=== PATIENT | male | born 1945 | race Caucasian/White ===

== ENCOUNTER → 2018-11-07 | Outpatient (CLI) | payer MEDICARE, OTHER ==
[~2018-11-07] MED LIST: ALPR1T PO; AMIT100T2 PO; ATEN25TA PO; BSP5T PO; CYCL10TA9 PO; FLT11013 IH; HYDR1TAB71 PO; HYOS0.1217 PO; MULT1CAP27 PO; NITR0.4T12 SL; PEG250PW PO; PRAV40TA PO; RHINOCORT; RT-COMBINH IH; TRZ50T PO
--- NOTE | 2018-11-07 12:56 | Diagnostic Imaging Report ---
INDICATION: Screening for osteoporosis. COMPARISON: 10/26/2016 FINDINGS: AP Spine L1-L4: [BMD (g/cm2): 1.216] [T-Score: -0.2] [Z-Score: 0.9] [BMD Previous: 1.068] [BMD % Change: 13.9] LT Hip Neck: [BMD (g/cm2): 0.816] [T-Score: -2.0] [Z-Score: -0.3] LT Hip Total: [BMD (g/cm2):0.937] [T-Score:-1.1] [Z-Score: 0.0] [BMD Previous: 0.923] [BMD % Change: N/A] RT Hip Neck: [BMD (g/cm2):0.770] [T-Score:-2.3] [Z-Score:-0.6] RT Hip Total: [BMD (g/cm2):0.849] [T-score:-1.8] [Z-Score:-0.6] [BMD Previous:0.812] [BMD % Change:N/A] *Indicates significant change from prior examination based on 95% confidence level. World Health Organization criteria for BMD interpretation classify patients as Normal (T-score at or above -1.0), Osteopenic (T-score between -1.0 and -2.5) or Osteoporotic (T-score at or below -2.5). LIMITATIONS AND MODIFICATION: None. FRACTURE RISK (FRAX SCORE): The ten year probability of (%): Major Osteoporotic Fracture: [1.8] Hip Fracture: [0.0] IMPRESSION: 1. Osteopenia (Low bone mass). 2. No significant change in bone mineral density since prior examination. 3. See below National Osteoporosis Foundation guidelines on when to potentially initiate pharmacologic therapy. Based on the National Osteoporosis Foundation Guidelines, pharmacologic treatment should be initiated in any of the following, unless clinical conditions suggest otherwise: * Any patient with prior fragility fracture of the hip or vertebrae. A spine fracture indicates 5X risk for subsequent spine fracture and 2X risk for subsequent hip fracture. * Osteoporosis (T-score <-2.5). * Postmenopausal women and men age 50 and older with low bone mass/osteopenia (T-score between -1.0 and -2.5) by DXA and 10-year major osteoporotic fracture greater than 20% or a 10-year probability of hip fracture greater than 3%. These fracture risks are supplied above in the FRAX score, if applicable. * Clinician judgement and/or patient preferences may indicate treatment for people with 10-year fracture probabilities above or below these levels. Dictated by: Dictated on workstation # [id number]
== END ==
LOC: RAD 11:18
DX: Z13.820 Encounter for screening for osteoporosis (principal); M85.89 Other specified disorders of bone density and structure, multiple sites; M81.0 Age-related osteoporosis without current pathological fracture
CPT/HCPCS: 77080

== ENCOUNTER → 2020-02-18 | Outpatient (CLI) | payer MEDICARE, OTHER ==
--- NOTE | 2020-02-18 14:25 | Diagnostic Imaging Report ---
INDICATION: Cough x 3 weeks. TECHNIQUE/COMPARISON: PA and lateral films of the chest were obtained at 2:25 PM. There is no prior study for comparison. FINDINGS: The heart and mediastinal silhouette are normal in appearance. The lungs appear clear except for a calcified granuloma in the left midlung. There is no pneumothorax or pleural fluid. There is a compression fracture of T12 which is unchanged compared to the previous lumbar spine series of 10/03/2016. IMPRESSION: No acute process in the chest. Dictated by: Dictated on workstation # [id number]
== END ==
LOC: RAD 14:09
DX: R05 Cough (principal)
CPT/HCPCS: 71046

== ENCOUNTER → 2020-02-23 | Outpatient (CLI) | payer MEDICARE, OTHER ==
[~2020-02-23] MED LIST changes: +GADOBUTROL 10 MMOL/10 ML (GADAVIST) VIAL IV ONE
--- NOTE | 2020-02-23 15:33 | Diagnostic Imaging Report ---
PROCEDURE: MR imaging of the brain with and without contrast. TECHNIQUE: Multiplanar, multisequence MR imaging of the brain was performed with and without contrast. INDICATION: Memory loss and amnesia. COMPARISON is made to a previous study from September 28, 2014. FINDINGS: The diffusion series demonstrates no restriction. There are no findings of acute or subacute ischemia There is age-appropriate global volume loss. There are background chronic microvascular changes present within the white matter which demonstrates mild progression compared to the previous exam. There is no evidence of intracranial mass effect or shift. There is no hydrocephalus. There is no abnormal extra-axial fluid collection. The basilar cisterns appear patent. The posterior fossa demonstrates no acute process. Postcontrast imaging demonstrates no MR evidence of pathologic intracranial enhancement. Pituitary gland and pineal region are unremarkable. The mastoid air cells are clear. There is minimal mucosal thickening in the paranasal sinuses without air-fluid level. Orbital contents unremarkable. The major expected vascular flow voids appear maintained. IMPRESSION: 1. No MR evidence of an acute intracranial abnormality. There are no findings of acute ischemia, hemorrhage, mass effect or hydrocephalus. 2. Age-appropriate global volume loss with background microvascular changes. These have mildly progressed compared to the previous exam. 3. No findings of pathologic intracranial enhancement. Dictated by: Dictated on workstation # [id number]
== END ==
LOC: RAD 13:10
DX: R41.3 Other amnesia (principal)
CPT/HCPCS: 70553

== ENCOUNTER → 2020-04-09 | Outpatient (CLI) | payer MEDICARE, OTHER ==
[~2020-04-09] MED LIST changes: -GADOBUTROL 10 MMOL/10 ML (GADAVIST) VIAL IV ONE
--- NOTE | 2020-04-09 15:59 | Diagnostic Imaging Report ---
INDICATION: Pleurodynia. COMPARISON: Chest radiograph from same day. FINDINGS: Three views of the right ribs were obtained. There is no fracture, dislocation, or other acute bony abnormality identified. Visualized portions of the right lung are clear. The surrounding soft tissues appear unremarkable. No radiopaque foreign bodies are seen. IMPRESSION: No healing or displaced right rib fractures. Dictated by: Dictated on workstation # [id number]
--- NOTE | 2020-04-09 16:48 | Diagnostic Imaging Report ---
INDICATION: PLEURODYNIA. RT SIDED RIB PAIN. CHEST PAIN COMPARISON: 02/18/2020. FINDINGS: Frontal and lateral views of the chest demonstrate normal heart size and pulmonary vascularity. The lungs are clear. There are no signs of infiltrate, pleural effusions or pneumothoraces. The visualized osseous structures show no acute abnormalities. IMPRESSION: 1. No acute process. No signs of infiltrates, effusions or pneumothoraces. Dictated by: Dictated on workstation # [id number]
== END ==
LOC: RAD 14:36
DX: R07.81 Pleurodynia (principal)
CPT/HCPCS: 71046; 71100

== ENCOUNTER → 2022-03-09 | Outpatient (CLI) | payer MEDICARE, OTHER ==
--- NOTE | 2022-03-09 16:26 | Diagnostic Imaging Report ---
INDICATION: Back pain. COMPARISON: 10/03/2016 FINDINGS: Frontal and lateral radiographic views of the lumbar spine were obtained. There is chronic wedge-shaped compression deformity of the T12 vertebral body. Lumbar vertebral body heights are maintained. There is no convincing evidence of new acute fracture. Static alignment is preserved. There is no significant anteroretrolisthesis. There is no evidence of jumped facets. Multilevel degenerative changes are noted consistent with intervertebral disc height loss with endplate sclerosis and osteophyte formations. There is also multilevel facet arthropathy. Note is made of calcified aortic atherosclerosis. IMPRESSION: 1. No new acute fracture or dislocation of the lumbar spine. 2. Chronic wedge-shaped deformity of T12. 3. Moderate multilevel degenerative changes. Dictated by: Dictated on workstation # [id number]
--- NOTE | 2022-03-09 16:27 | Diagnostic Imaging Report ---
INDICATION: Back pain. COMPARISON: None FINDINGS: Frontal, lateral, and open-mouth radiographic views of the cervical spine were obtained. Cervical spine is seen down to the inferior endplate of C6 on the lateral view. Visualization below this is degraded due to overlying soft tissue structures. The visualized portions of cervical spine show preservation of normal static alignment. There is no significant anteroretrolisthesis. There is no evidence of jumped facets. Open-mouth view shows normal C1-C2 relationship. Visualized vertebral body heights are maintained. There is no acute fracture. Degenerative changes are noted, greatest at C5-C6 where there is intervertebral disc height loss with anterior and posterior endplate osteophyte formation. Included portions of the lung apices are clear. Note is also made of calcified carotid atherosclerosis. IMPRESSION: 1. No acute fracture or dislocation of the cervical spine with limitations as above. 2. Degenerative changes, greatest at C5-C6. Dictated by: Dictated on workstation # [id number]
--- NOTE | 2022-03-09 17:43 | Diagnostic Imaging Report ---
INDICATION: Back pain. TIME OF EXAM: 3:43 PM. EXAMINATION: Frontal and lateral views of the thoracic spine were obtained. FINDINGS: Curvature and alignment is normal. There is a compression fracture deformity of approximately T12. This was present on prior chest x-ray from 04/09/2020. Remaining thoracic vertebrae show normal height. There is generalized spondylosis. There is variable disc space narrowing and marginal spurring. The pedicles and paraspinous line are intact. IMPRESSION: Thoracic spondylosis as well as chronic lower thoracic compression fracture. No acute bony abnormality is detected. Dictated by: Dictated on workstation # [id number]
== END ==
LOC: RAD 15:17
PROVIDERS: ATTEND Internal Medicine
DX: M47.812 Spondylosis without myelopathy or radiculopathy, cervical region (principal); M47.814 Spondylosis without myelopathy or radiculopathy, thoracic region; M47.816 Spondylosis without myelopathy or radiculopathy, lumbar region; M48.54XA Collapsed vertebra, not elsewhere classified, thoracic region, initial encounter for fracture; M43.8X4 Other specified deforming dorsopathies, thoracic region
CPT/HCPCS: 72040; 72072; 72100

== ENCOUNTER → 2022-03-27 | Outpatient (CLI) | payer MEDICARE, OTHER ==
--- NOTE | 2022-03-27 15:21 | Diagnostic Imaging Report ---
PROCEDURE: MR imaging of the brain without contrast. TECHNIQUE: Multiplanar, multisequence MR imaging of the brain was performed without contrast. INDICATION: Gait instability. Ataxia. COMPARISON: 02/23/2020 FINDINGS: The ventricles and cortical sulci are slightly prominent, compatible with age related volume loss. There are focal and confluent areas of abnormal T2 bright signal in the periventricular and subcortical white matter, compatible with small vessel ischemic change. There is no acute infarction. There is no midline shift or mass effect identified. No intraparenchymal or extraaxial hemorrhage or fluid collection is identified. There is no other focal parenchymal abnormality seen. The midline craniocervical anatomy is unremarkable. The major expected intracranial flow voids are seen. There are no focal calvarial lesions. The visualized paranasal sinuses are unremarkable. The mastoid air cells are clear. IMPRESSION: 1. No acute intracranial abnormalities. No acute infarction, acute intra-axial hemorrhage, or focal intra-axial mass. 2. Chronic small vessel ischemic changes in the periventricular and subcortical white matter. Dictated by: Dictated on workstation # [id number]
--- NOTE | 2022-03-27 16:54 | Diagnostic Imaging Report ---
PROCEDURE: MR imaging cervical spine without contrast. TECHNIQUE: Multiplanar, multisequence MR imaging of the cervical spine was performed without contrast. INDICATION: Ataxia. COMPARISON: Cervical spine radiographs of 03/09/2022. FINDINGS: The cervical spine is normal in alignment. No fracture or concerning marrow replacing process. Cervical cord is normal in size and signal. There are no T2 hyperintense intramedullary lesions that would suggest demyelinating disease. No cervical lymphadenopathy. Visualized portions of the brachial plexus are normal. C2-C3: No spinal canal or neural foraminal stenosis. C3-C4: Small central disc protrusion does not result in spinal canal stenosis. No neural foraminal stenosis. C4-C5: Minimal central disc protrusion does not result in spinal canal stenosis. Uncovertebral joint hypertrophy results in [id number]-tm-[id number] left neural foraminal stenosis. C5-C6: Disc bulge, uncovertebral joint hypertrophy, and ligamentum flavum thickening result in mild spinal canal stenosis. Ijzllwvw-xz-zmhlvs bilateral neural foraminal narrowing is present. C6-C7: Small central disc protrusion, ligamentum flavum hypertrophy, and uncovertebral joint hypertrophy. There is mild spinal canal stenosis. Severe bilateral neural foraminal stenosis. C7-T1: No spinal canal or neural foraminal stenosis. IMPRESSION: 1. Alignment of the cervical spine is normal, and there is no osseous abnormality. 2. Normal cervical cord. 3. Multilevel degenerative changes cause a few sites of mild spinal canal stenosis, and iwyjessk-ho-qjzfae foraminal stenosis. Dictated by: Dictated on workstation # [id number]
== END ==
LOC: RAD 13:47
PROVIDERS: ATTEND Internal Medicine
DX: M47.812 Spondylosis without myelopathy or radiculopathy, cervical region (principal); M48.02 Spinal stenosis, cervical region; I67.82 Cerebral ischemia; R90.82 White matter disease, unspecified
CPT/HCPCS: 70551; 72141

== ENCOUNTER → 2022-07-18 | Outpatient (CLI) | payer MEDICARE, OTHER ==
--- NOTE | 2022-07-18 18:00 | Diagnostic Imaging Report ---
EXAMINATION: Chest 2 view HISTORY: COUGH COMPARISON: 04/09/2020 FINDINGS: The lungs are clear without edema or pneumonia. No pleural effusion or pneumothorax. Heart size is normal. There is lower thoracic impression fracture, likely unchanged from prior exam. IMPRESSION: 1. Clear lungs. Dictated by: Dictated on workstation # [id number]
== END ==
LOC: RAD 16:07
PROVIDERS: ATTEND Internal Medicine
DX: R05.9 Cough, unspecified (principal)
CPT/HCPCS: 71046

== ENCOUNTER 2022-11-11 18:12 | Emergency (ER) | payer MEDICARE, OTHER ==
[~2022-11-11] VITALS: Ht 167.7 cm; Wt 61.2 kg
--- NOTE | 2022-11-11 18:31 | ED Cough/URI ---
General Chief Complaint: Respiratory Problems Stated Complaint: GENERAL SICKNESS Nursing Triage Note: ARRIVED VIA EMS TO ROOM 9 WITH A C/O SOB WITH EXERTION BODY ACHES AND PAIN. SICK FOR 3 DAYS, HAS COVID Source: patient Exam Limitations: no limitations (REBECA GONZALEZ) History of Present Illness Date Seen by Provider: Nov 11, 2022 Time Seen by Provider: 18:30 Initial Comments 76 M present to ED with a 4 day hx of generalized bady aches fatigue SOB and cough. Pt claims non-productive cough has been going on for a month but has worsened over the past 4 days. tested positive for COVID today. Pt reports some associated nausea w/o emesis, diarrhea, and dark urine. claims he has not ate anything in the past 2 days and minimal fluid intake. Has been taking tylenol and ibuprofen with no relief of symptoms. Pt has a pmh of anxiety for which he takes xanax and admits to one beer a night. Timing/Duration: other (4 days ) Severity/Quality: mild, dry cough Prior Episodes/Possible Cause: no prior episodes Modifying Factors: Improves With Activity (worsens fatigue ) Associated Symptoms: cough, muscle aches, shortness of breath (REBECA GONZALEZ) Allergies and Home Medications Allergies Coded Allergies: No Known Drug Allergies (Unverified , 06/14/10) Patient Home Medication List Home Medication List Reviewed: Yes (REBECA GONZALEZ) Alprazolam (Xanax) 1 Mg Tablet, 1 TAB PO 5X/DAY, (Reported) Entered as Reported by: ZONIA DRAKE on 06/14/10 1042 Hydrocodone Bit/Acetaminophen (Hydrocodone-Apap 7.5-500 Mg Tb) 1 Each Tablet, 1 EACH PO 5X/DAY PRN, (Reported) Entered as Reported by: ZONIA DRAKE on 06/14/10 1029 Review of Systems Review of Systems Constitutional: No chills, No diaphoresis, No fever; malaise, weakness EENTM: No blurred vision, No nose congestion, No throat pain Respiratory: cough, dyspnea on exertion, short of breath Cardiovascular: No chest pain, No edema, No palpitations Gastrointestinal: No abdominal pain; diarrhea, loss of appetite, nausea; No vomiting Genitourinary: decreased output, other (dark urine) Musculoskeletal: back pain, joint swelling, muscle pain Skin: No change in color, No change in hair/nails; dryness, other Psychiatric/Neurological: Anxiety Hematologic/Lymphatic: No Symptoms Reported Immunological/Allergic: no symptoms reported (SAUCE,REBECA) Past Tezsatx-Ntjauo-Bazien Hx Patient Social History Tobacco Use?: No Use of E-Cig and/or Vaping dev: No Substance use?: No Alcohol Use?: Yes Alcohol type: Beer Alcohol Frequency: Daily (SAUCE,REBECA) Immunizations Up To Date Influenza Vaccine Up-to-Date: Yes; Up-to-Date COVID19 Vaccine Fiction Writer: VERBALIZES CURRENT VACC (SAUCE,REBECA) Past Medical History Reproductive Disorders: Yes (SAUCE,REBECA) Physical Exam Vital Signs - First Documented 11/11/22 18:18 Temp 37.3 Pulse 83 Resp 20 B/P (MAP) 98/85 (89) Pulse Ox 100 O2 Delivery Room Air (AIXA SHELDON MD) Capillary Refill : (SAUCE,REBECA) Height: 5'5.00" Weight: 130lbs. oz. 58.012228fm; 21.00 BMI Method:Stated General Appearance: WD/WN, no apparent distress Eyes: Bilateral Eye Normal Inspection, Bilateral Eye PERRL, Bilateral Eye EOMI HEENT: PERRL/EOMI, pharynx normal Neck: non-tender, supple, normal inspection Respiratory: chest non-tender, lungs clear, normal breath sounds, no respiratory distress, no accessory muscle use Cardiovascular: regular rate, rhythm, no edema, no gallop, no murmur Gastrointestinal: normal bowel sounds, non tender, soft, no organomegaly, no pulsatile mass Extremities: normal inspection, no pedal edema, normal capillary refill, calf tenderness; No pedal edema Neurologic/Psychiatric: alert, oriented x 3, other (anxious (chronic)) Skin: normal color, warm/dry Lymphatic: no adenopathy (SAUCE,REBECA) Progress/Results/Core Measures Suspected Sepsis SIRS Temperature: Pulse: 83 Respiratory Rate: 20 Blood Pressure 98 /85 Mean: 89 Laboratory Tests 11/11/22 18:24: (SAUCE,REBECA) Results/Orders Lab Results Laboratory Tests Test 11/11/22 18:19 11/11/22 18:24 Range/Units Influenza Type A (RT-PCR) Not Detected Not Detecte Influenza Type B (RT-PCR) Not Detected Not Detecte SARS-CoV-2 RNA (RT-PCR) Detected H Not Detecte Sodium Level 138 135-145 MMOL/L Potassium Level 4.0 3.6-5.0 MMOL/L Chloride Level 101 98-107 MMOL/L Carbon Dioxide Level 21 21-32 MMOL/L Anion Gap 16 H 5-14 MMOL/L Blood Urea Nitrogen 12 7-18 MG/DL Creatinine 0.89 0.60-1.30 MG/DL Estimat Glomerular Filtration Rate 89 BUN/Creatinine Ratio 13 Glucose Level 148 H 70-105 MG/DL Calcium Level 9.6 8.5-10.1 MG/DL (AIXA SHELDON MD) My Orders Orders - AIXA SHELDON MD Covid 19 Inhouse Test (11/11/22 18:37) Influenza A And B By Pcr (11/11/22 18:37) Isolation Central Supply Req (11/11/22 18:37) Ed Iv/Invasive Line Start (11/11/22 18:38) Basic Metabolic Panel (11/11/22 18:38) Ns Iv 1000 Ml (Sodium Chloride 0.9%) (11/11/22 18:38) Ed Iv/Invasive Line Start (11/11/22 18:43) Ondansetron Injection (Zofran Injectio (11/11/22 19:00) (AIXA SHELDON MD) Medications Given in ED Current Medications Medications Dose Ordered Sig/Glen Route Start Time Stop Time Status Last Admin Dose Admin Ondansetron HCl 4 mg ONCE ONCE IVP 11/11/22 19:00 11/11/22 19:01 DC 11/11/22 18:55 4 MG (AIXA SHELDON MD) Vital Signs/I&O 11/11/22 18:18 Temp 37.3 Pulse 83 Resp 20 B/P (MAP) 98/85 (89) Pulse Ox 100 O2 Delivery Room Air (AIXA SHELDON MD) Vital Signs/I&O Capillary Refill : (SASIMINREBECA) Blood Pressure Mean: 89 Progress Note : Time: 19:36 Progress Note Patient seen and evaluated by me. I have reviewed and agree with the medical students documentation. 76yo male with a history of anxiety to ER with n/v today. He states also body aches and "bone pain". Hes had a cough for 1 month (non productive) and in the last 4 days worsening symptoms, decreased appetite and feels SOB. Former smoker. Taking ibuprofen and tylenol at home. COuldnt initially remember the time of his last dose - but states he thinks tylenol at 10:30 am. He states his tested herself and him for covid today with an at home test - she was positive and he was negative. decreaed appetite in the last 2 days. states urine is "dark" but no dysuria, urgency frequency. PE: gen: alert and oriented. NAD. VSS room air sats 100% Chest : Clear Bilat with no increased work of breathing CV: RR, distal pulses 2+ Abd: soft, benign Skin: no rashes Assessment: Patient is covid positive. Stable VS. basic metabolic panel normal. good renal function. Treated with 1 liter of NS, and zofran 4mg; also toradol 15mg. feels better. No clinical or objective findings for sepsis, pneumonia. Plan: discharge to home, supportive care. No indication for paxlovid/antiviral therapy as symptoms ongoing 4 days. Return precautions discussed. All questions are sought and answered. Home with zofran for nausea. (AIXA SHELDON MD) Departure Impression Primary Impression: COVID-19 Disposition: 01 HOME, SELF-CARE Condition: Improved Departure-Patient Inst. Decision time for Depature: 19:42 (AIXA SHELDON MD) Referrals: MAIDA FRANCO,LOCAL PHYSICIAN (PCP) Primary Care Physician Patient Instructions: COVID-19 ED Add. Discharge Instructions: Push fluids at home so you stay well hydrated. Your appetite will come back as the virus clears. I have written you a prescription for ondansetron (Zofran), this is a nausea medication you can take every 8 hours. Alternate 2 extra strength tylenol every 3 hours with 3 ibuprofen (advil or motrin) which is 600mg - always take ibuprofen with food/a snack. Take this for body aches, fever over 100.4. If you have any worsening symptoms of high fever, productive cough with worsening shortness of breath or any other emergent, concerning symptoms - please come back to the Emergency Department for re-evaluation. Please call your primary care doctor on Sunday for a follow up appointment in 1 week. Scripts Ondansetron (Ondansetron Odt) 4 Mg Tab.rapdis 4 MG SL Q8H PRN for NAUSEA/VOMITING, #10 TAB Prov: AIXA SHELDON MD 11/11/22 Verification and Attestation of Medical Student E/M Service A medical student performed and documented this service in my presence. I reviewed and verified all information documented by the medical student and made modifications to such information, when appropriate. I personally performed the physical exam and medical decision making. Aixa Sheldon, Nov 11, 2022,19:42 (AIXA SHELDON MD) REBECA GONZALEZ Nov 11, 2022 18:31 AIXA SHELDON MD Nov 11, 2022 19:42
[2022-11-11] MEDS ORDERED: NS IV 1000 ML 1,000 ML IV STA (18:38)
[2022-11-11 18:50] LABS: CALCIUM 9.6 MG/DL (8.5-10.1)
[2022-11-11 18:54] LABS: CREATININE SERUM 0.89 MG/DL (0.60-1.30)
[2022-11-11] MEDS ORDERED: ONDANSETRON 4 MG/2 ML (SDV) Z0FRAN IVP ONE (19:00)
[2022-11-11] MEDS ORDERED: RX-ONDANSETRON 4 MG ODT (ZOFRAN) PPK #4 PO STA (19:46)
[2022-11-11] MEDS ORDERED: ONDA4TAB11 SL (19:46)
[2022-11-11] MEDS ORDERED: KETOROLAC 30 MG/ML VIAL IVP ONE (20:00)
[2022-11-11 20:30] VITALS: BP 134/79
== END 2022-11-11 20:30 | disposition home or self-care (01) ==
LOC: EDUNIT# 18:12 → ER 18:13
DX: U07.1 COVID-19 (principal); R06.02 Shortness of breath; R05.9 Cough, unspecified; M79.10 Myalgia, unspecified site; M25.50 Pain in unspecified joint; R63.0 Anorexia; Z87.891 Personal history of nicotine dependence
CPT/HCPCS: 36415; 80048; 87636

== ENCOUNTER 2023-07-04 09:55 | Inpatient (IN) | payer MEDICARE, OTHER ==
[~2023-07-04] VITALS: Ht 165.1 cm; Wt 55.9 kg
--- NOTE | 2023-07-04 09:51 | PM&R Post Admission Assessment ---
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 He has had multiple falls recently and his wants to continue to care for him at home and wants to avoid NH as long as possible. He has chronic pain and is maintained on Lortab scheduled along with Xanax due to severe discomfort from previous back injury and multiple falls and nerve condition. He has diarrhea and Questran has really helped him to avoid fecal incontinence. CC: cerebellar ataxia HPI: 77 y/o male has been having progressively worsening balance issues and is unable to be cared for by his . Patient has had progressive weakness in his LE for the past few months. He recently fell in his bathroom and was transferred to [facility] from [facility]. He is only able to use the shower on his own but unable to do any chores, cooking, or cleaning around the house. His reported 3 falls in the past month or so and patient is unable to stand by himself. Patient does not report any falls this past week other than the bathroom and there is no pain in his LE extremities. He states he is a bit weaker on the right. He uses a wheelchair and walker at home, and is unable to ambulate more than a few steps without needing to sit down. 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 FH: no family History of ataxia ROS: No SOB, No fever, no headache, no chest pain Exam: Neuro- A&Ox3, muscle strength 5/5 on left LE, 4/5 on right LE. Pupillary reflexes intact CN II-XII intact. Sensation intact. LE DTR's +2 b/l. Inability to properly perform finger-nose cerebellar testing. unable to ambulate- gait not assessed Cardio: Regular rate and rythym, No murmurs or gallops, no JVD, no edema Lung: CTAB, no wheezing no ronchi Abdominal: No masses, soft, no organomegaly, no tenderness on palpation on all 4 quadrants Imaging: MRI of brain on 03/27/22 - chronic small vessel ichemic changes in periventricular and subcortical white matter, no acute infarction. MRI of neck showed no significant findings Assessment: progressive Spinal cerebellar ataxia insomnia chronic pain chronic diarrhea BPH erectile dysfunction Plan: ARU - continue PT OT restart home meds Past Kjzqwyb-Bvnkkk-Ozrtbl Hx Past Med/Social Hx: Reviewed Nursing Past Med/Soc Hx, Reviewed and Corrections made Patient Social History Marrital Status: Employed/Student: retired Alcohol Use: Occasionally Uses Smoking Status: Never a Smoker Immunizations Up To Date Date of Pneumonia Vaccine: Aug 27, 2014 Date of Influenza Vaccine: Aug 27, 2014 Past Medical History cerebellar ataxia Reproductive: Yes Genitourinary: Benign Prostatic Hyperpl Musculoskeletal: Chronic Back Pain Psychosocial: Sleep Difficulties, Anxiety, Depression PM&R Allergy/Meds/Data Review Allergies Coded Allergies: No Known Drug Allergies (Unverified , 06/14/10) Home Medications Scheduled Alprazolam (Alprazolam), 1 MG PO QID, (Reported) Cyanocobalamin (Vitamin B-12) (Vitamin B-12), 1,000 MCG PO DAILY, (Reported) Folic Acid (Folic Acid), 1 MG PO DAILY, (Reported) Hydrocodone/Acetaminophen (Hydrocodone-Acetamin 10-325 mg), 1 EA PO TID, (Reported) Trazodone HCl (Trazodone HCl), 150 MG PO HS, (Reported) Scheduled PRN Cholestyramine (with Sugar) (Cholestyramine Powder), 4 GM PO TID PRN for LOOSE STOOLS, (Reported) Discontinued Medications Alprazolam (Xanax), 1 TAB PO 5X/DAY, (Reported) Discontinued Reason: No Longer Taking Hydrocodone Bit/Acetaminophen (Hydrocodone-Apap 7.5-500 Mg Tb), 1 EACH PO 5X/DAY PRN, (Reported) Discontinued Reason: No Longer Taking Ondansetron (Ondansetron Odt), 4 MG SL Q8H PRN for NAUSEA/VOMITING Discontinued Reason: No Longer Taking Current Medications Current Medications Reviewed Review of Systems Constitutional: see HPI, dizziness, malaise, weakness EENTM: no symptoms reported Respiratory: no symptoms reported Cardiovascular: no symptoms reported Gastrointestinal: diarrhea Genitourinary: decreased output Musculoskeletal: back pain, joint pain, muscle pain, muscle stiffness, muscle cramps, muscle twitching, muscle weakness Skin: no symptoms reported Psychiatric/Neurological: Anxiety, Depressed, Numbness, Weakness All Other Systems Reviewed Negative Unless Noted: Yes Physical Exam Physical Exam Vital Signs Capillary Refill : Height, Weight, BMI Height: 5'5.00" Weight: 130lbs. oz. [id number]; 21.00 BMI Method:Stated General Appearance: No Apparent Distress, WD/WN, Anxious, Chronically ill, Thin, Other (debilitated) Eyes: Bilateral Eye Normal Inspection, Bilateral Eye PERRL HEENT: PERRL/EOMI, Normal ENT Inspection, Pharynx Normal Neck: Full Range of Motion, Normal Inspection, Non Tender, Supple, Carotid Bruit Respiratory: Chest Non Tender, Lungs Clear, Normal Breath Sounds, No Accessory Muscle Use, No Respiratory Distress Cardiovascular: Regular Rate, Rhythm, No Edema, No Gallop, No JVD, No Murmur, Normal Peripheral Pulses Gastrointestinal: Normal Bowel Sounds, No Organomegaly, No Pulsatile Mass, Non Tender, Soft Back: Normal Inspection, No CVA Tenderness, No Vertebral Tenderness Extremity: Normal Capillary Refill, Normal Inspection, Normal Range of Motion, Non Tender, No Calf Tenderness, No Pedal Edema Neurologic/Psychiatric: Alert, Oriented x3, metallurgical technician II-XII Norm as Tested, Abnormal Gait, Depressed Affect, Motor Weakness (generalized) Skin: Normal Color, Warm/Dry Lymphatic: No Adenopathy PM&R Medical Assessment & Plan REHAB/MEDICAL ASSESSMENT AND PLAN: REHAB IMPAIRMENT GROUP: Neuro condition ETIOLOGIC DIAGNOSIS: Neurogenerative cerebellar ataxia The comorbidities that impact the patients function and/or functional outcome by: vitamin deficiencies of B12 and folate, multiple falls, severe weakness, chronic diarrhea REHAB PLAN: The patient is being admitted to our comprehensive inpatient rehabilitation facility and can tolerate the intensity of service consisting of at least: 180 minutes of therapy a day, 5 out of 7 days a week Rehab treatment will consist of: PT OT will focus on regaining function with use of AD to help regain strength and independence in ADL's to decrease burden for insurance processing clerk The patient/family has a good understanding of our discharge process and will benefit from an interdisciplinary inpatient rehabilitation program. The patient has potential to make improvement and is in need of at least two of the following multidisciplinary therapies including but not limited to physical, occupational, speech, and prosthetics and orthotics. Additionally the patient will need services from respiratory, nutritional services, wound care, psychology, etc. (Customize this to each patient). Given the patients complex condition and risk of further medical complications, rehabilitation services cannot be safely or effectively provided at a lower level of care such as a nursing home facility. BARRIERS TO DISCHARGE: Severe neurodegenerative process with increased fall risk ESTIMATED LOS: 14 days DISPOSITION: Home RELEVANT CHANGES SINCE PREADMISSION SCREENING: I have compared the patients medical and functional status at the time of the preadmission screening and there are: no changes PROGNOSIS: Fair REHABILITATION GOALS: 1. PT OT will focus on regaining function with use of AD to help regain strength and independence in ADL's to decrease burden for insurance processing clerk All the above goals were reviewed with the patient and he/she is in agreement. By signing this document, I acknowledge that I have personally performed a full physical examination on this patient within 24 hours of admission to this inpatient rehabilitation facility and have determined the patient to be able to tolerate the above course of treatment at an intensive level for a reasonable period of time. I will be completing a detailed individualized Plan of Care for this patient by day #4 of the patients stay based upon the Preadmission Screen, the Post-Admission Evaluation, and the therapy evaluations. 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
[~2023-07-04 09:55] MED LIST changes: +ONDA4TAB11 SL
[2023-07-04] MEDS ORDERED: diphenhydrAMINE 25 MG TABLET PO PRN (10:00)
[2023-07-04] MEDS ORDERED: DOCUSATE SODIUM 100 MG CAPSULE PO PRN (10:00)
[2023-07-04] MEDS ORDERED: LOPERAMIDE 2 MG CAPSULE PO PRN (10:00)
[2023-07-04] MEDS ORDERED: guaiFENesin/CODEINE 10ML UDC PO PRN (10:00)
[2023-07-04] MEDS ORDERED: ONDANSETRON 4 MG ORAL DISSOLVE TABLET PO PRN (10:00)
[2023-07-04] MEDS ORDERED: ALPRAZolam 0.25 MG TABLET PO PRN (10:00)
[2023-07-04] MEDS ORDERED: Sodium Phosphate/Sodium Biphosphate ADULT enema PR PRN (10:00)
[2023-07-04] MEDS ORDERED: BISACODYL 10 MG SUPPOSITORY PR PRN (10:00)
[2023-07-04] MEDS ORDERED: LACTULOSE SYRUP 10GM/15ML 30ML UDC PO PRN (10:00)
[2023-07-04] MEDS ORDERED: MELATONIN 3 MG TABLET PO PRN (10:00)
[2023-07-04] MEDS ORDERED: CALCIUM CARBONATE 500 MG CHEW TABLET PO PRN (10:00)
[2023-07-04 10:20] VITALS: BP 120/68
--- NOTE | 2023-07-04 12:22 | Physical Therapy Evaluation ---
PT Evaluation-General Medical Diagnosis Admission Date Jul 04, 2023 at 10:20 Medical Diagnosis: Neurodegenerative cerebellar dysfunction with ataxia. Onset Date: Aug 04, 2022 (progressive decline over the past year) Therapy Diagnosis Therapy Diagnosis: Falls at home, impaired mobilty/transfers, LE weakness, endurance deficits Height/Weight Height (Feet): 5 Height (Inches): 5.00 Weight (Pounds): 130 Precautions Precautions/Isolations: Fall Prevention, Standard Precautions Weight Bear Status Weight Bearing/Tolerated Weight Bearing/Tolerated Referral Physician: Sammie Reason for Referral: Evaluation/Treatment Referral Comments Admit from patient's home Medical History Additional Medical History B12 deficient. BPH, anxiety, chronic LBP, chronic diarrhea. Current History states progressive decline over the past year with having increased difficulty caring for patient. Social History Home: Single Level Current Living Status: Spouse Entry Into Home: Stairs Without Railing PT Steps Into Home: 2 Prior Prior Level of Function SCALE: Activities may be completed with or without assistive devices. 7-Sfscjmaocf-blueshn completes the activity by him/herself with no assistance from a helper. 5-Set-up or Clean-up Assistance-helper sets up or cleans up; patient completes activity. Lueders assists only prior to or following the activity. 4-Supervision or Touching Assistance-helper provides verbal cues and/or touching/steadying and/or contact guard assistance as patient completes activity. Assistance may be provided throughout the activity or intermittently. 3-Partial/Moderate Assistance-helper does LESS THAN HALF the effort. Lueders lifts, holds or supports trunk or limbs, but provides less than half the effort. 2-Substantial/Maximal Assistance-helper does MORE THAN HALF the effort. Lueders lifts or holds trunk or limbs and provides more than half the effort. 2-Zpgkyonwz-hlzekl does ALL the effort. Patient does none of the effort to complete the activity. Or, the assistance of 2 or more helpers is required for the patient to complete the activity. If activity was not attempted, code reason: 7-Patient Refused. 9-Not Applicable-not attempted and the patient did not perform the activity before the current illness, exacerbation or injury. 10-Not Attempted due to Environmental Limitations-(lack of equipment, weather restraints, etc.). 88-Not Attempted due to Medical Conditions or Safety Concerns. Bed Mobility: 6 ((I) with bed rail) Transfers (B,C,W/C): 3 (usually min (A) of , but they recently acquired a mechanical lift for floor transfers as patient is falling frequently.) Gait: 3 ( report min (A) /c 4WW for short household distances) Stairs: 3 Wheelchair Mobility: 6 Indoor Mobility (Ambulation): Needed Some Help Stairs: Needed Some Help Prior Devices Use: Manual wheelchair, Mechanical lift, Walker, Other-see list below (Shower chair that sits in tub/shower combo) Prior Device Use: 4WW (height too tall for patient to support self with UE's.) PT Evaluation-Current Subjective Patient states he is here because he has fallen 3 times in the past 2 weeks. states she cannot pick him up (however recently acquired mechanical lift for floor transfers). Pain Section J - Health Conditions 1. Rarely or not at all 2. Occasionally 3. Frequently 4. Almost constantly 8. Unable to answer Pain Effect on Sleep: 2 Pain Interference with Therapy: 3 Pain Interference w/Day-to-Day: 3 Pt/Family Goals Patient wishes to return home with . Objective States he has chronic low back pain. Rates as a constant 8/10. This is from an injury when he was in his 20's. ROM/Strength ROM Upper Extremities deferred to OT ROM Lower Extremities Mild knee flexion deficit of ~ 10 degrees in sitting - tight hamstrings. Strength Upper Extremities Deferred to OT Strength Lower Extremities 4+/5 (B) ankles, (R) knee extension 4/5, flexion 4-/5, (L) knee extension 4/5, flexion 4/5. Hip flexion 3+/5 (B). Hip abd/add 4+/5 (B) with MMT: However, displays low muscle endurance with functional tasks. Integumentary/Posture Posture Kyphotic posture, tends to forward flex at hips. Sensory Vision: Wears Glasses Hearing: Functional Sensation Right Lower Extremit: Intact Sensation Left Lower Extremity: Intact Transfers Roll Left & Right (QC): 6 (with bed rail) Sit to Lying (QC): 6 (using bed rail) Lying to Sitting/Side of Bed(Q: 6 (using bed rail) Sit to Stand (QC): 3 (min (A) with v/c for hand placement) Chair/Jgo-fc-Uznaz Xfer(QC): 3 (min (A) used 4WW) Toilet Transfer (QC): 3 (Min (A) with 4WW) Car Transfer (QC): 3 (Min (A) with 4WW) Gait Does the Patient Walk?: Yes Mode of Locomotion: Both Anticipated Mode of Locomotion: Both Walk 10 feet (QC): 3 (min (A) with 4WW) Walk 50 ft with 2 Turns(QC): 3 (min (A) with 4WW) Walk 150 ft (QC): 88 (unable to reach distance due to fatigue/leg weakness) Walking 10ft/uneven surface-QC: 3 (min (A) with 4WW) Distance: 50' Gait Assistive Device: Walker 4 Wheeled Comments/Gait Description Walker is too high to allow for leverage using UE's. Tends to understep walker - does not provide adequate support for safe ambulation. Wheelchair Training Does the Pt Use a Wheelchair?: Yes Distance: 150' Wheel 50 ft with 2 turns (QC): 5 (w/c legs applied for patient prior to propulsion) Wheel 150 ft (QC): 5 (w/c legs applied for patient prior to propulsion) Type of Wheelchair: Manual Patient has his personal w/c on ARU with a w/c cushion and swing away leg rests. Stairs #of Steps: 3 (mod (A) to steady patient and to help navigate 4WW up 2" curb.) 1 Step (curb) (QC): 3 (min (A) with (B) rails with cues for sequence.) 4 Steps (QC): 3 (mod (A) with (B) rails, fatigued, tremulous) 12 Steps (QC): 9 Walking Assistive Device: Walker Max # steps at home = 2. Does not navigate 12 steps - would use elevator or ramp in community. Balance Sitting Static: Good Sitting Dynamic: Fair Standing Static: Fair Standing Dynamic: Fair Picking up an Object (QC): 3 (Mod (A) ) Special Test Comments [facility] standing balance scale: 1+/5. [place] 15/56 Treatment Gait training with 4WW 50' with cues for walker placement and posture. Discussed using FWW at next session to improve gait stability. Assessment/Needs 77 year old male with upright mobility/balance/transfer deficits due to progressive worsening of symptoms over past year. Recommend FWW vs 4WW for more gait stability. Has endurance deficits and would benefit from strengthening/activity tolerance activities to improve functional independence. Rehab Potential: Fair Post Rehab Potential-Barriers: Degenerative nature of diagnosis Equipment Needs FWW PT [facility] Goals [facility] Goals PT [facility] Goals Time Frame: Jul 25, 2023 Roll Left to Right (QC): 6 Sit to Lying (QC): 6 Lying-Sitting on Side/Bed(QC): 6 Sit to Stand (QC): 5 Chair/Sur-ih-Elwbl Xfer(QC): 5 Toilet/Commode Transfer (QC): 5 Car Transfer (QC): 5 Does the Patient Walk: Yes Walk 10 feet (QC): 5 (/c FWW) Walk 10ft-Uneven Surface(QC): 4 (/c FWW) Walk 50ft with 2 Turns (QC): 5 (/c FWW) Walk 150 ft (QC): 4 (/c FWW) Does the Pt use WC or Scooter?: Yes Wheel 50 feet with 2 turns (QC: 6 Type: Manual Wheel 150 feet: 6 Type: Manual 1 Step (curb) (QC): 4 (/c FWW or railing) 4 Steps (QC): 4 (with railings) 12 Steps (QC): 9 Picking up an Object (QC): 5 (with epidemiology intern) [facility] Balance score: 3/5 or better. [place] Balance score: 20/56. PT Plan Problem List Problem List: Activity Tolerance, Functional Strength, Safety, Balance, Gait, Transfer, ROM Treatment/Plan Treatment Plan: Continue Plan of Care Treatment Plan: Education, Functional Activity Fide, Functional Strength, Group Therapy, Gait, Safety, Therapeutic Exercise, Transfers, Other Treatment Duration: Jul 25, 2023 Frequency: At least 5 of 7 days/Wk (IRF) Estimated Hrs Per Day: 1.5 hours per day Patient and/or Family Agrees t: Yes Safety Risks/Education Patient Education: Gait Training, Transfer Techniques, Safety Issues Teaching Recipient: Patient Teaching Methods: Demonstration, Discussion, Audiovisual Response to Teaching: Reinforcement Needed Discharge Recommendations Therapy Discharge Recommendati: Home & Family, Post Acute PT Equpiment Recommendations-D/C: Front Wheeled Walker, Wheelchair Ramp, Railings, Other, Please Explain (Tub transfer bench) Discharge Status/Home Program Needs either railing for steps to enter home or a w/c ramp. Target Placement Home /c . Time Time In: 1015 Time Out: 1115 DATE: Jul 04, 2023 Total Billed Treatment Time: 60 Total Billed Treatment EVM 45, GT 15 Sabina Gresham PT Jul 04, 2023 12:22
[2023-07-04] MEDS ORDERED: TRAZ150T72 PO (12:35)
[2023-07-04] MEDS ORDERED: CYAN-41 PO (12:35)
[2023-07-04] MEDS ORDERED: FOLI1TAB33 PO (12:35)
[2023-07-04] MEDS ORDERED: CHOL378P12 PO (12:35)
[2023-07-04] MEDS ORDERED: HYDR-3820 PO (12:35)
[2023-07-04] MEDS ORDERED: ALPR1TAB7 PO (12:35)
[2023-07-04] MEDS ORDERED: CHOLESTYRAMINE 4 GM PO PRN (12:45)
[2023-07-04] MEDS ORDERED: [UNRECOGNIZED DRUG - OTHER] PO PRN (12:45)
[2023-07-04] MEDS ORDERED: CHOLESTYRAMINE LITE 4 GM PACKET PO PRN (13:00)
[2023-07-04] MEDS: ENOXAPARIN 40 MG/0.4 ML SYRINGE SC SCH (13:21)
[2023-07-04] MEDS: HYDROcodone/ACETAMINOPHEN 10/325 TABLET PO SCH ×2 (13:22→20:36)
--- NOTE | 2023-07-04 13:29 | Progress Note ---
[facility] 07/04/23 1329: Progress Note CC: cerebellar ataxia HPI: 77 y/o male has been having progressively worsening balance issues and is unable to be cared for by his . Patient has had progressive weakness in his LE for the past few months. He recently fell in his bathroom and was transferred to [facility] from [facility]. He is only able to use the shower on his own but unable to do any chores, cooking, or cleaning around the house. His reported 3 falls in the past month or so and patient is unable to stand by himself. Patient does not report any falls this past week other than the bathroom and there is no pain in his LE extremities. He states he is a bit weaker on the right. He uses a wheelchair and walker at home, and is unable to ambulate more than a few steps without needing to sit down. 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 FH: no family History of ataxia ROS: No SOB, No fever, no headache, no chest pain Exam: Neuro- A&Ox3, muscle strength 5/5 on left LE, 4/5 on right LE. Pupillary reflexes intact CN II-XII intact. Sensation intact. LE DTR's +2 b/l. Inability to properly perform finger-nose cerebellar testing. unable to ambulate- gait not assessed Cardio: Regular rate and rythym, No murmurs or gallops, no JVD, no edema Lung: CTAB, no wheezing no ronchi Abdominal: No masses, soft, no organomegaly, no tenderness on palpation on all 4 quadrants Imaging: MRI of brain on 03/27/22 - chronic small vessel ichemic changes in periventricular and subcortical white matter, no acute infarction. MRI of neck showed no significant findings Assessment: progressive Spinal cerebellar ataxia insomnia chronic pain chronic diarrhea BPH erectile dysfunction Plan: ARU - continue PT OT restart home meds LORENA FRANCO DO 07/04/231952: Supervisory-Addendum Brief Verification & Attestation Participated in pt care: history, MDM, physical Personally performed: exam, history, MDM, supervision of care Care discussed with: Medical Student Procedures: n/a Results interpretation: Verified all documentation Verification and Attestation of Medical Student E/M Service A medical student performed and documented this service in my presence. I reviewed and verified all information documented by the medical student and made modifications to such information, when appropriate. I personally performed the physical exam and medical decision making. Lorena Franco, Jul 04, 2023,19:53 MARTINEZ Jul 04, 2023 13:29 LORENA FRANCO DO Jul 04, 2023 19:53
[2023-07-04] MEDS: ALPRAZolam 1 MG TABLET PO PRN ×2 (13:50→20:35)
--- NOTE | 2023-07-04 14:35 | Physical Therapy Daily Note ---
PT Daily Note-Current Subjective Patient has just finished eating lunch and is ready for a pain pill. Nsg. provided hydrocodone prior to this therapy session for 8/10 chronic low back pain. Pain Section J - Health Conditions 1. Rarely or not at all 2. Occasionally 3. Frequently 4. Almost constantly 8. Unable to answer Pain Effect on Sleep: 2 Pain Interference with Therapy: 3 Pain Interference w/Day-to-Day: 3 Appearance Patient in recliner with feet elevated. Transfers SCALE: Activities may be completed with or without assistive devices. 1-Bfsagoqofc-tmqqfft completes the activity by him/herself with no assistance from a helper. 5-Set-up or Clean-up Assistance-helper sets up or cleans up; patient completes activity. [place] assists only prior to or following the activity. 4-Supervision or Touching Assistance-helper provides verbal cues and/or touching/steadying and/or contact guard assistance as patient completes activity. Assistance may be provided throughout the activity or intermittently. 3-Partial/Moderate Assistance-helper does LESS THAN HALF the effort. [place] lifts, holds or supports trunk or limbs, but provides less than half the effort. 2-Substantial/Maximal Assistance-helper does MORE THAN HALF the effort. [place] lifts or holds trunk or limbs and provides more than half the effort. 5-Cekufskps-rpznep does ALL the effort. Patient does none of the effort to complete the activity. Or, the assistance of 2 or more helpers is required for the patient to complete the activity. If activity was not attempted, code reason: 7-Patient Refused. 9-Not Applicable-not attempted and the patient did not perform the activity before the current illness, exacerbation or injury. 10-Not Attempted due to Environmental Limitations-(lack of equipment, weather restraints, etc.). 88-Not Attempted due to Medical Conditions or Safety Concerns. Sit to Stand (QC): 3 (Min (A)-CGA to FWW with v.c. to push up from recliner.) Chair/Yag-hi-Lbuis Xfer(QC): 3 (CGA-min (A) with FWW) Weight Bearing Weight Bearing/Tolerated Weight Bearing/Tolerated Gait Training Does the Patient Walk?: Yes Distance: 123' x 2 /c FWW Walk 10 feet (QC): 3 (min-CGA /c FWW) Walk 50 ft with 2 Turns(QC): 3 (min- CGA /c FWW) Gait Assistive Device: FWW Patient able to support self /c UE's more easily using FWW. Required min cues initially for FWW use and posture inside walker. Step length improved (B) with FWW vs. 4WW. Less fatigue with FWW use vs 4WW. Exercises In recliner prior to gait, LAQ x 10 (B), DF/PF x 10 (B). HR 73-82 /p Nustep. O2 sats 99% once fingers were warmed for reading -- no SOB with activity. NuStep Minutes: 6 NuStep Workload: 3 Assessment Improved gait utilizing FWW vs 4WW. Recommend continued use of FWW to improve gait distance,endurance,stability. Patient's mobility issues are too significant to be helped with a cane. PT Penitentiary Goals Penitentiary Goals PT Penitentiary Goals Time Frame: Jul 25, 2023 Roll Left & Right (QC): 6 Sit to Lying (QC): 6 Lying-Sitting on Side/Bed(QC): 6 Sit to Stand (QC): 5 Chair/Cua-me-Bojsz Xfer(QC): 5 Toilet Transfer (QC): 5 Car Transfer (QC): 5 Does the Patient Walk: Yes Walk 10 feet (QC): 5 (/c FWW) Walk 50ft with 2 Turns (QC): 5 (/c FWW) Walk 150 ft (QC): 4 (/c FWW) Walking 10ft on Uneven Surface: 4 (/c FWW) 1 Step (curb) (QC): 4 (/c FWW or railing) 4 Steps (QC): 4 (with railings) 12 Steps (QC): 9 Picking up an Object (QC): 5 (with body team member) Does the Pt use WC or Scooter?: Yes Wheel 50 feet with 2 turns (QC: 6 Type: Manual Wheel 150 feet: 6 Type: Manual PT Plan Problem List Problem List: Activity Tolerance, Functional Strength, Safety, Balance, Gait, Transfer Treatment/Plan Treatment Plan: Continue Plan of Care Treatment Plan: Education, Functional Activity Fide, Functional Strength, Group Therapy, Gait, Safety, Therapeutic Exercise, Transfers, Other Treatment Duration: Jul 25, 2023 Frequency: At least 5 of 7 days/Wk (IRF) Estimated Hrs Per Day: 1.5 hours per day Patient and/or Family Agrees t: Yes Safety Risks/Education Patient Education: Gait Training, Safety Issues Teaching Recipient: Patient Teaching Methods: Demonstration, Discussion, Audiovisual Response to Teaching: Reinforcement Needed Discharge Recommendations Therapy Discharge Recommendati: Post Acute PT Equpiment Recommendations-D/C: Front Wheeled Walker Barriers to Progress 2 steps to enter home /s railings. Needs railing or ramp. Time Time In: 1320 Time Out: 1350 DATE: Jul 04, 2023 Total Billed Treatment Time: 30 Total Billed Treatment 1EX(10), 1GT(20) Sabina Gresham PT Jul 04, 2023 14:35
--- NOTE | 2023-07-04 15:43 | Occupational Therapy Eval ---
OT Evaluation-General/PLF Medical Diagnosis Admission Date Jul 04, 2023 at 10:20 Medical Diagnosis: Neurodegenerative cerebellar dysfunction with ataxia. Onset Date: Aug 04, 2022 (progressive decline over the past year) Therapy Diagnosis Therapy Diagnosis: Neurodegenerative cerebellar dysfunction with ataxia Height/Weight Height (Feet): 5 Height (Inches): 5.00 Weight (Pounds): 130 Precautions Precautions/Isolations: Fall Prevention, Standard Precautions Referral Physician: Sammie Referral Reason: Activity Tolerance, Self Care, Evaluation/Treatment, Strengthening/ROM Social History Home: Single Level Current Living Status: Spouse Entry Into Home: Stairs Without Railing Steps Into Home: 2 ADL-Prior Level of Function SCALE: Activities may be completed with or without assistive devices. 0-Xtsqbtvitf-oifkzhe completes the activity by him/herself with no assistance from a helper. 5-Set-up or Clean-up Assistance-helper sets up or cleans up; patient completes activity. [place] assists only prior to or following the activity. 4-Supervision or Touching Assistance-helper provides verbal cues and/or t ouching/steadying and/or contact guard assistance as patient completes activity. Assistance may be provided throughout the activity or intermittently. 3-Partial/Moderate Assistance-helper does LESS THAN HALF the effort. [place] lifts, holds or supports trunk or limbs, but provides less than half the effort. 2-Substantial/Maximal Assistance-helper does MORE THAN HALF the effort. [place] lifts or holds trunk or limbs and provides more than half the effort. 5-Frfydigja-tebqol does ALL the effort. Patient does none of the effort to complete the activity. Or, the assistance of 2 or more helpers is required for the patient to complete the activity. If activity was not attempted, code reason: 7-Patient Refused. 9-Not Applicable-not attempted and the patient did not perform the activity before the current illness, exacerbation or injury. 10-Not Attempted due to Environmental Limitations-(lack of equipment, weather restraints, etc.). 88-Not Attempted due to Medical Conditions or Safety Concerns. Self Care: Needed Some Help DME/Equipment: Bath Chair DME/Equipment Comments rollator, WC, shower chair with back Occupation: Retired [address] Self: Yes (Per pt reporting) Leisure Interests: watch TV, likes to go bowling OT Current Status Subjective Pt consented to OT evaluation/session Pain Numeric Pain Scale: 8 Location: Lower Location Body Site: Back Pain Description: Ache Mental Status/Objective Patient Orientation: Person, Place, Time, Situation Current Glasses/Contacts: Yes Hearing Aids: No Dentures/Partials: Yes Hand Dominance: Right Upper Extremity ROM AROM WFL to perform basic ADLs Upper Extremity Coordination 9 hole peg test: R: 44 secs L: 34 secs Upper Extremity Sensation BUE WFL per pt reporting Upper Extremity Strength BUE strength 4/5 grossly Biological Technician strength RUE - 61# LUE - 58# ADL-Treatment Eating (QC): 5 (Set-up A to open packages. Pt able to feed self.) Oral Hygiene (QC): 5 (Set-up A for oral care seated at sink with pt brushing teeth. ) Shower/Bathe Self (QC): 3 (Partial/mod A for bathing seated on built in shower bench in shower with pt performing sit<>stand with Min A x 1 to clean ricky area and buttocks.) Upper Body Dressing (QC): 4 (SBA for donning/soffing shirt seated in WC) Lower Body Dressing (QC): 3 (Partial/mod A for donning/doffing pants and underwear. Sit<>stand with CGA x 1 to pull pants over hips. ) On/Off Footwear (QC): 4 (SBA to don/doff socks and shoes seated in WC) Toileting Hygiene (QC): 4 (SBA for safety to void while standing at toilet with pt able to manage clothing.) Pt performed toilet t/f with min A x 1 utilizing GB's for safety. Verbal cues needed for safety. Other Treatments Pt performed BUE strengthening exercises while seated in bedside recliner with red flexbar performing 15 reps x 2 sets performing wrist pronation/supination and wrist flexion/extension to increase endurance, BUE strength, and activity tolerance. Pt reported no pain while performing activity. Intermittent rest breaks needed secondary to fatigue. Pt performed BUE strengthening ex's with red theraband performing chest press and shoulder flex/ext performing 15 reps x 2 sets to increase endurance, activity tolerance, and BUE strength to increase (I) with ADLs and IADLs. Intermittent rest breaks needed secondary to fatigue. Education OT Patient Education: Energy conservation, Exercise program, Home exercise program, Modified ADL techniques, Progress toward Goal/Update tx plan, Purpose of tx/functional activities, Rehab process, Safety issues, Transfer techniques, W/C management Teaching Recipient: Patient Teaching Methods: Demonstration, Discussion Response to Teaching: Verbalize Understanding, Return Demonstration, Reinforcement Needed Pt noted to make very inappropriate comments throughout session. This therapist explained the role of OT and how OT assesses ADLs such as bathing, dressing, grooming, toileting. When therapist asked pt would he like to get a shower today pt stated "I don't want you to see my pee pee." Therapist again explained that he had the choice on whether he wanted to get in the shower or not and the purpose of OT assessing ADLs such as bathing to determine his CLOF and if we needed to provide AE/DME needs. Pt stated "my [place] isn't very big so I hope you aren't grading that." Therapist explained to pt that that is very inappropriate and we do not need to speak that way. Nurse was present during the time was making inappropriate comments. After nurse left, pt got in the shower and performed bathing task with gabe [place]. Pt again made a comment stating "I wish my vinita was 6 inches longer". This therapist told pt that that was enough and we are not going to speak like. Pt stopped, but later in the therapy session, pt asked therapist numerous times "do you have a boyfriend or a ?" This therapist redirected pt to continue performing activity/exercise. Pt continuously asking for pain medication and asking to look for it in his bag. This therapist told pt that he already received pain medication and it wasn't time for any pain medication yet. Notified MO Vazquez that pt was requesting pain medication and that he stated that he had medication in his bag, but this therapist searched and did not find any. BIMS CAM BIMS Expression of Ideas and Wants: Without Difficulty Understanding Verbal Content: Understands Brief Interview/Mental Status: Yes IRF JESS BIMS: IRF JESS BIMS Response (Comments) Value Repitition of Three Words Three 3 Recalls Socks Yes, No Cue Required 2 Recalls Blue Yes, After Cueing (Color) 1 Recalls Bed Yes, After Cueing 1 Year Correct 3 Month Accurate Within 5 Days 2 Day Correct 1 Total 13 [address] Mental [address] No CAM Mental Status Change/Baseline: 0 Inattention: 2 Disorganized thinkin Altered level of consciousness: 0 OT Fdc Goals Food And Beverage Controller Goals Eating (QC): 6 Oral Hygiene (QC): 6 Toileting Hygiene (QC): 5 Shower/Bathe Self (QC): 4 Upper Body Dressing (QC): 6 Lower Body Dressing (QC): 4 On/Off Footwear (QC): 6 1=Demonstrate adherence to instructed precautions during ADL tasks. 2=Patient will verbalize/demonstrate understanding of assistive devices/modifications for ADL. 3=Patient will improve strength/tolerance for activity to enable patient to perform ADL's. OT Education/Plan Problem List/Assessment Assessment: Decreased Activ Tolerance, Decreased Safety Aware, Decreased UE Strength, Impaired Cognition, Impaired Coordination, Impaired Funct Balance, Impaired I ADL's, Impaired Self-Care Skills Discharge Recommendations Plan/Recommendations: Continue POC Barriers to Progress Decreased self-care transfers, entry to home, decreased endurance, decreased dynamic/static balance Treatment Plan/Plan of Care Treatment,Training & Education: Yes Patient would benefit from OT for education, treatment and training to promote independence in ADL's, mobility, safety and/or upper extremity function for ADL's. Plan of Care: ADL Retraining, Caregiver Training, Cognitive Retraining, Functional Mobility, Group Exercise/Act as Ind, UE Funct Exercise/Act, UE Neuromus Re-Ed/Coord, W/C Management Training Treatment Duration: Jul 18, 2023 Frequency: At least 5 of 7 days/Wk (IRF) Estimated Hrs Per Day: 1.5 hours per day Agreement: Yes Rehab Potential: Good Time Start Time: 15:00 Stop Time: 16:30 DATE: Jul 04, 2023 Total Time Billed (hr/min): 90 Billed Treatment Time 90 minutes EVM 1 ADL 4 EX 1 DUKESPAMELA Jul 04, 2023 15:43
[2023-07-04] MEDS: DOCUSATE SODIUM 100 MG CAPSULE PO SCH (19:20)
[2023-07-04] MEDS: SENNA W/DOCUSATE TABLET PO SCH (19:21)
[2023-07-04 20:21] VITALS: BP 144/82
[2023-07-04] MEDS: traZODone 150 MG (DESYREL) TABLET PO SCH (20:35)
[2023-07-05 05:28] LABS: ALBUMIN 3.4 GM/DL (3.2-4.5); BILIRUBIN,TOTAL 0.3 MG/DL (0.1-1.0); CALCIUM 8.5 MG/DL (8.5-10.1); CREATININE SERUM 0.83 MG/DL (0.60-1.30); POTASSIUM 4.9 MMOL/L (3.6-5.0); TOTAL PROTEIN 5.9 GM/DL (6.4-8.2)
[2023-07-05 05:58] LABS: BASOPHILS # (AUTO) 0.1 10^3/uL (0.0-0.1); BASOPHILS % (AUTO) 1 % (0-10); EOSINOPHILS # (AUTO) 0.2 10^3/uL (0.0-0.3); EOSINOPHILS % (AUTO) 3 % (0-10); HEMATOCRIT 39 % (40-54); HEMOGLOBIN 12.6 g/dL (13.3-17.7); LYMPHOCYTES # (AUTO) 1.9 10^3/uL (1.0-4.0); LYMPHOCYTES % (AUTO) 30 % (12-44); MEAN CORPUSCULAR HEMOGLOBIN 32 pg (25-34); MEAN CORPUSCULAR HGB CONC 32 g/dL (32-36); MEAN CORPUSCULAR VOLUME 99 fL (80-99); MEAN PLATELET VOLUME 10.5 fL (9.0-12.2); MONOCYTES # (AUTO) 0.7 10^3/uL (0.0-1.0); MONOCYTES % (AUTO) 12 % (0-12); NEUTROPHILS # (AUTO) 3.3 10^3/uL (1.8-7.8); NEUTROPHILS % (AUTO) 53 % (42-75); PLATELET COUNT 189 10^3/uL (130-400); WHITE BLOOD COUNT 6.2 10^3/uL (4.3-11.0)
--- NOTE | 2023-07-05 07:41 | Individualized Plan of Care ---
Individualized Plan of Care Rehab Nursing IPOC Order Admission Date Jul 04, 2023 at 10:20 Current Orders Orders Admission Order(Inpt,Obs,Sdc) (07/04/23 09:47) Vital Signs: Per Unit Policy ( 08,16,00 (07/04/23 09:47) Andres Mason 09,21 (07/04/23 09:47) Sequential Compression Device [id number] (07/04/23 09:47) Biodiesel Plant Superintendent-Inpt Rehab Con (07/04/23 09:47) Rehab Nursing Orders-Ipoc (07/04/23 09:47) Physical Therapy Rehab Orders (07/04/23 09:47) Occupational Therapy Rehab Ord (07/04/23 09:47) Speech Therapy Rehab Orders (07/04/23 09:47) Cbc With Automated Diff (07/05/23 06:00) Comprehensive Metabolic Panel (07/05/23 06:00) Precautions (Aru) (07/04/23 09:47) Weekly Weight WEEK (07/04/23 09:47) Rehab-Intensity Of Therapy (07/04/23 09:47) Initiate Admission Nursing Pro .admission (07/04/23 09:47) Alprazolam Tablet (Alprazolam Tablet) (07/04/23 10:00) Calcium Carbonate Chew Tablet (Calcium C (07/04/23 10:00) Diphenhydramine Tablet (Diphenhydramine (07/04/23 10:00) Docusate Sodium Capsule (Docusate Sodium (07/04/23 21:00) Docusate Sodium Capsule (Docusate Sodium (07/04/23 10:00) Bisacodyl Suppository (Bisacodyl Supposi (07/04/23 10:00) Lactulose Oral Solution (Enulose Oral So (07/04/23 10:00) Na Phos/Na Biphos Adult Enema (Na Phos/N (07/04/23 10:00) Guaifenesin/Codeine Syrup (Guaifenesin/C (07/04/23 10:00) Loperamide Capsule (Loperamide Capsule) (07/04/23 10:00) Enoxaparin Injection (Enoxaparin Injecti (07/04/23 10:00) Melatonin Tablet (Melatonin Tablet) (07/04/23 10:00) Polyethylene Glycol Powder (Polyethylen (07/04/23 21:00) Ondansetron Oral Dissolve Tab (Ondanset (07/04/23 10:00) Senna W/Docusate Tablet (Senna W/Docusat (07/04/23 21:00) Acetaminophen Tablet (Acetaminophen Ta (07/04/23 10:00) Initiate Admission Nursing Pro .admission (07/04/23 09:47) Code/Resuscitation (07/04/23 09:47) Admission Arrival Bed Request (07/04/23 10:22) General/Regular (07/04/23 Lunch) Alprazolam Tablet (Alprazolam Tablet) (07/04/23 13:00) Cyanocobalamin Tablet (Cyanocobalamin Ta (07/05/23 09:00) Folic Acid Tablet (Folic Acid Tablet) (07/05/23 09:00) Hydrocodone/Apap 10/325 Tablet (Hydrocod (07/04/23 13:00) Trazodone Tablet (Desyrel Tablet) (07/04/23 21:00) (Nf) Cholestyramine (With Sugar) (Choles (07/04/23 12:45) Cholestyramine Lite Powder (Cholestyrami (07/04/23 13:00) Patient Visit (07/04/23 ) Pt Eval Moderate Complexity (07/04/23 ) Gait Training, Ea 15 Min (07/04/23 ) Patient Visit (07/04/23 ) Gait Training, Ea 15 Min (07/04/23 ) Exercise Therap, Ea 15 Min (07/04/23 ) Loratadine Tablet (Loratadine Tablet) (07/05/23 11:30) Loratadine Tablet (Loratadine Tablet) (07/06/23 09:00) Pseudoephedrine Tablet (Pseudoephedrine (07/05/23 11:15) Pseudoephedrine Tablet (Pseudoephedrine (07/05/23 11:30) Mm5: Minced And Moist (07/05/23 Lunch) Enlive Variety (07/05/23 14:22) Patient Visit (07/05/23 ) Exercise Therap, Ea 15 Min (07/05/23 ) Gait Training, Ea 15 Min (07/05/23 ) Wheelchair Mgmt/Propulsn 15min (07/05/23 ) Functional Activities, Ea 15 (07/05/23 ) Patient Visit (07/05/23 ) Dysphagia Evaluation Std (07/05/23 ) Dysphagia Therapy (07/05/23 ) Rehab Nursing Orders: Ongoing Assess. of Cognitive Status, Ongoing Assess. of Function Status, Bladder Management, Bladder Scan, Bladder Training, Bowel Management, Bowel Training, Disease Management & Educaiton, DVT Prophylaxis, Fall Prevention, Fluid/Electrolyte/Nutrition Mgmt, Infection Prevention, Medication Management & Education, Management of Risks & Complications, Management of Skin Intergrity, Nutrition Management, Pain Management, Patient/Family Support, Safety Management Intensity of Therapy to be met Patient to be seen: Min.3h per day/5 of 7d PT IPOC Problem List: Activity Tolerance, Functional Strength, Safety, Balance, Gait, Transfer Treatment Plan: Continue Plan of Care Education, Functional Activity Fide, Functional Strength, Group Therapy, Gait, Safety, Therapeutic Exercise, Transfers, Other Treatment Duration: Jul 25, 2023 Frequency: At least 5 of 7 days/Wk (IRF) Estimated Hrs Per Day: 1.5 hours per day OT IPOC Problems: Decreased Activ Tolerance, Decreased Safety Aware, Decreased UE Strength, Impaired Cognition, Impaired Coordination, Impaired Funct Balance, Impaired I ADL's, Impaired Self-Care Skills OT Treatment, Training and Edu: Yes Plan of Care: ADL Retraining, Caregiver Training, Cognitive Retraining, Functional Mobility, Group Exercise/Act as Ind, UE Funct Exercise/Act, UE Neuromus Re-Ed/Coord, W/C Management Training Treatment Duration: Jul 18, 2023 Frequency: At least 5 of 7 days/Wk (IRF) Estimated Hrs Per Day: 1.[address] IPOC Speech Therapy Treatment Plan: Discontinue ST Treatment Duration: Jul 05, 2023 Frequency: Modified Program (IRF) Estimated Hrs Per Day: Other Biodiesel Plant Superintendent/Case Mgmt Biodiesel Plant Superintendent/Case Managemen: Discharge Planning Dietitian/Magazine Repairer Dietitian/Magazine Repairer to monitor nutritional status and make changes and/or recommendations as needed and work with speech pathology on dietary upgrades as the occur. Physician IPOC Medical Issues being managed closely and that require the 24 hour availability of a physician: Recent multiple falls at home with progressive neurological condition with ataxia will require close monitoring for falls and further decline while inpatient Medical Issues: Bowel/Bladder Function, DVT Prophylaxis, Falls Precautions, Fluid/Electrolyte/Nutrition Balance, Infection Protection, Pain Management Brief Synthesis of Preadmission Screen, Post-Admission Evaluation, and Therapy Evaluations: PT OT will focus on regaining function with the use of AD in order to regain some independence in order to decrease monitoring manager burden when returning home Medical Prognosis: Fair Anticipated Length of Stay: 10 days MAIDA FRANCO DO Jul 05, 2023 07:41
--- NOTE | 2023-07-05 07:41 | PM&R Progress Note ---
Subjective HPI/CC On Admission Date Seen by Provider: Jul 05, 2023 Time Seen by Provider: 12:00 Subjective/Events-last exam 07/05/2023: No major issues Nurse saw him take a pill that she did not administer and he was very lethargic afterwards No new pain Narcotic and Xanax dependence for years before transferred from [facility] to sd BM loose but Stewartran helps Review of Systems General: Fatigue, Malaise Musculoskeletal: back pain Objective Exam Vital Signs Vital Signs Date Time Temp Pulse Resp B/P (MAP) Pulse Ox O2 Delivery O2 Flow Rate FiO2 07/05/23 20:10 Room Air 07/05/23 19:59 36.1 95 20 115/75 (88) 93 Capillary Refill : General Appearance: No Apparent Distress, WD/WN, Anxious, Chronically ill, Thin, Other (debilitated) HEENT: PERRL/EOMI, Normal ENT Inspection, Pharynx Normal Neck: Full Range of Motion, Normal Inspection, Non Tender, Supple, Carotid Bruit Respiratory: Chest Non Tender, Lungs Clear, Normal Breath Sounds, No Accessory Muscle Use, No Respiratory Distress Cardiovascular: Regular Rate, Rhythm, No Edema, No Gallop, No JVD, No Murmur, Normal Peripheral Pulses Gastrointestinal: Normal Bowel Sounds, No Organomegaly, No Pulsatile Mass, Non Tender, Soft Back: Normal Inspection, No CVA Tenderness, No Vertebral Tenderness Extremity: Normal Capillary Refill, Normal Inspection, Normal Range of Motion, Non Tender, No Calf Tenderness, No Pedal Edema Neurologic/Psychiatric: Alert, Oriented x3, cinder man II-XII Norm as Tested, Abnormal Gait, Depressed Affect, Motor Weakness (generalized) Skin: Normal Color, Warm/Dry Lymphatic: No Adenopathy Results/Procedures Lab Laboratory Tests 07/05/23 05:43 Patient resulted labs reviewed. FIM Transfers Therapy Code Descriptions/Definitions Functional [place] Measure: 0=Not Assessed/NA 4=Minimal Assistance 1=Total Assistance 5=Supervision or Setup 2=Maximal Assistance 6=Modified [place] 3=Moderate Assistance 7=Complete IndependenceSCALE: Activities may be completed with or without assistive devices. 4-Oroqyphgni-kxuibkq completes the activity by him/herself with no assistance from a helper. 5-Set-up or Clean-up Assistance-helper sets up or cleans up; patient completes activity. [place] assists only prior to or following the activity. 4-Supervision or Touching Assistance-helper provides verbal cues and/or touching/steadying and/or contact guard assistance as patient completes activity. Assistance may be provided throughout the activity or intermittently. 3-Partial/Moderate Assistance-helper does LESS THAN HALF the effort. [place] lifts, holds or supports trunk or limbs, but provides less than half the effort. 2-Substantial/Maximal Assistance-helper does MORE THAN HALF the effort. [place] lifts or holds trunk or limbs and provides more than half the effort. 8-[place]-ovskin does ALL the effort. Patient does none of the effort to complete the activity. Or, the assistance of 2 or more helpers is required for the patient to complete the activity. If activity was not attempted, code reason: 7-Patient Refused. 9-Not Applicable-not attempted and the patient did not perform the activity before the current illness, exacerbation or injury. 10-Not Attempted due to Environmental Limitations-(lack of equipment, weather restraints, etc.). 88-Not Attempted due to Medical Conditions or Safety Concerns. Roll Left to Right (QC): 6 (with bed rail) Sit to Lying (QC): 6 (using bed rail) Sit to Stand (QC): 3 (Min (A)-CGA to FWW with v.c. to push up from recliner.) Chair/Uwm-of-Ykynp Xfer(QC): 3 (CGA-min (A) with FWW) Car Transfer (QC): 3 (Min (A) with 4WW) Gait Training Does the Patient Walk?: Yes Distance: 123' x 2 /c FWW Walk 10 feet (QC): 3 (min-CGA /c FWW) Walk 50 ft with 2 Turns(QC): 3 (min- CGA /c FWW) Walk 150 ft (QC): 88 (unable to reach distance due to fatigue/leg weakness) Walking 10ft/uneven surface-QC: 3 (min (A) with 4WW) Gait Assistive Device: FWW Wheelchair Training Does the Pt Use a Wheelchair?: Yes Distance: 150' Wheel 50 ft with 2 turns (QC): 5 (w/c legs applied for patient prior to propulsion) Wheel 150 ft (QC): 5 (w/c legs applied for patient prior to propulsion) Type of Wheelchair: Manual Stair Training #of Steps: 3 (mod (A) to steady patient and to help navigate 4WW up 2" curb.) 1 Step (curb) (QC): 3 (min (A) with (B) rails with cues for sequence.) 4 Steps (QC): 3 (mod (A) with (B) rails, fatigued, tremulous) 12 Steps (QC): 9 Balance Picking up an Object (QC): 3 (Mod (A) ) ADL-Treatment Eating (QC): 5 (Set-up A to open packages. Pt able to feed self.) Oral Hygiene (QC): 5 (Set-up A for oral care seated at sink with pt brushing teeth. ) Shower/Bathe Self (QC): 3 (Partial/mod A for bathing seated on built in shower bench in shower with pt performing sit<>stand with Min A x 1 to clean ricky area and buttocks.) Upper Body Dressing (QC): 4 (SBA for donning/soffing shirt seated in WC) Lower Body Dressing (QC): 3 (Partial/mod A for donning/doffing pants and underwear. Sit<>stand with CGA x 1 to pull pants over hips. 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
[2023-07-05 08:00] VITALS: BP 97/61
[2023-07-05] MEDS: CYANOCOBALAMIN 1,000 MCG TABLET PO SCH (08:03)
[2023-07-05] MEDS: HYDROcodone/ACETAMINOPHEN 10/325 TABLET PO SCH ×3 (08:03→21:01)
[2023-07-05] MEDS: FOLIC ACID 1 MG TAB PO SCH (08:03)
[2023-07-05] MEDS: SENNA W/DOCUSATE TABLET PO SCH ×2 (08:03→19:51)
[2023-07-05] MEDS: ALPRAZolam 1 MG TABLET PO PRN ×2 (08:03→20:06)
[2023-07-05] MEDS: DOCUSATE SODIUM 100 MG CAPSULE PO SCH ×2 (08:04→19:51)
[2023-07-05] MEDS: ENOXAPARIN 40 MG/0.4 ML SYRINGE SC SCH (09:57)
[2023-07-05] MEDS ORDERED: PSEUDOEPHEDRINE 30 MG TABLET PO PRN (11:15)
[2023-07-05] MEDS ORDERED: LORATADINE 10 MG TABLET PO NR (11:30)
[2023-07-05] MEDS ORDERED: PSEUDOEPHEDRINE 30 MG TABLET PO NR (11:30)
--- NOTE | 2023-07-05 12:31 | Physical Therapy Daily Note ---
PT Daily Note-Current Subjective Patient was eating breakfast and took a pill/capsule with water as PT entered room and approached patient's bed. No medication cup was nearby. Patient acquired this pill out of his blue nicotine lozenge container. Patient much more lethargic this morning and required increased cues to all tasks. Nursing notified of patient taking a pill as therapist entered room. Patient stated he had not had any of his pills this morning and requested a xanax. Nursing notified patient that he had all of his medications this a.m. including a xanax at ~7:30 am. Pain Section J - Health Conditions 1. Rarely or not at all 2. Occasionally 3. Frequently 4. Almost constantly 8. Unable to answer Pain Effect on Sleep: 1 Pain Interference with Therapy: 3 Pain Interference w/Day-to-Day: 3 Appearance Patient was eating breakfast in bed and took a pill/capsule with water as PT entered room and approached patient's bed. No medication cup was nearby. Patient acquired this pill out of his blue nicotine lozenge container. Patient much more lethargic this morning and required increased cues to all tasks. Nursing notified of patient taking a pill as therapist entered room. Mental Status Patient not tracking as well as 07/04/23. More lethargic. Transfers SCALE: Activities may be completed with or without assistive devices. 6-Itvyjozhso-frmkewd completes the activity by him/herself with no assistance from a helper. 5-Set-up or Clean-up Assistance-helper sets up or cleans up; patient completes activity. [place] assists only prior to or following the activity. 4-Supervision or Touching Assistance-helper provides verbal cues and/or touching/steadying and/or contact guard assistance as patient completes activity. Assistance may be provided throughout the activity or intermittently. 3-Partial/Moderate Assistance-helper does LESS THAN HALF the effort. [place] lifts, holds or supports trunk or limbs, but provides less than half the effort. 2-Substantial/Maximal Assistance-helper does MORE THAN HALF the effort. [place] lifts or holds trunk or limbs and provides more than half the effort. 6-Nvmqsxicb-arzvim does ALL the effort. Patient does none of the effort to complete the activity. Or, the assistance of 2 or more helpers is required for the patient to complete the activity. If activity was not attempted, code reason: 7-Patient Refused. 9-Not Applicable-not attempted and the patient did not perform the activity before the current illness, exacerbation or injury. 10-Not Attempted due to Environmental Limitations-(lack of equipment, weather restraints, etc.). 88-Not Attempted due to Medical Conditions or Safety Concerns. Sit to Lying (QC): 5 (Therapist removed blankets from legs, then he was able to roll (R) and sit up to EOB (I) using the bed rail, but increased time to complete today compared to 07/04.) Sit to Stand (QC): 3 (min-mod (A) to FWW /c max cues for hand placement today. Retropulsive initially requiring mod (A).) Chair/Ktr-bk-Kvgzc Xfer(QC): 3 (min-mod (A) of 1 /c FWW with max cues to turn completely prior to sitting. 4 transfers completed) Weight Bearing Weight Bearing/Tolerated Weight Bearing/Tolerated Gait Training Distance: 20', 25' Walk 10 feet (QC): 3 (Mod (A) of 1 with max cues for step length, posture, UE use on FWW. W/C f/u. Declined compared to 07/04.) Wheelchair Training Does the Pt Use a Wheelchair?: Yes 30' using arms and legs for propulsion - fatigued and requested a rest break. 50' with (B) UE's only following Nustep - SBA-I Exercises O2 sats 95-96%, HR 84 bpm /p 2.4' on Nustep. O2 sats 96-97%, HR 88 bpm /p 5'. O2 sats 95%, HR 88 bpm /p 8' on Nustep. NuStep Minutes: 8 NuStep Workload: 3 Treatments LBD sitting EOB - patient required max (A) to place feet in legs on pants and thread pants up legs. Patient layed back across bed x 2 during this process - he was ableto sit upright unassisted when asked to do so. Sit>stand min-mod (A) of 1 with patient retropulsing strongly (mod (A)) when he attempted to pull pants up with (L) hand. Therapist pulled pants up over hips and then patient sat unexpectedly and layed across bed again. He zipped, buttoned pants and secured belt laying across the bed. Then patient sat back up (I) when asked to do so. Asked patient if his balance felt "off " when sitting and he stated that he just felt tired. Assessment Did not perform as well today as at eval. More lethargic and required more assistance and cues with all tasks. PT Product Marketing Consultant Goals Jail Goals PT Jail Goals Time Frame: Jul 25, 2023 Roll Left & Right (QC): 6 Sit to Lying (QC): 6 Lying-Sitting on Side/Bed(QC): 6 Sit to Stand (QC): 5 Chair/Viz-cp-Duxms Xfer(QC): 5 Toilet Transfer (QC): 5 Car Transfer (QC): 5 Does the Patient Walk: Yes Walk 10 feet (QC): 5 (/c FWW) Walk 50ft with 2 Turns (QC): 5 (/c FWW) Walk 150 ft (QC): 4 (/c FWW) Walking 10ft on Uneven Surface: 4 (/c FWW) 1 Step (curb) (QC): 4 (/c FWW or railing) 4 Steps (QC): 4 (with railings) 12 Steps (QC): 9 Picking up an Object (QC): 5 (with splitter operator) Does the Pt use WC or Scooter?: Yes Wheel 50 feet with 2 turns (QC: 6 Type: Manual Wheel 150 feet: 6 Type: Manual PT Plan Problem List Problem List: Activity Tolerance, Functional Strength, Safety, Balance, Gait, Transfer, Bed Mobility, ROM Treatment/Plan Treatment Plan: Continue Plan of Care Treatment Plan: Education, Functional Activity Fide, Functional Strength, Group Therapy, Gait, Safety, Therapeutic Exercise, Transfers, Other Treatment Duration: Jul 25, 2023 Frequency: At least 5 of 7 days/Wk (IRF) Estimated Hrs Per Day: 1.5 hours per day Patient and/or Family Agrees t: Yes Time Time In: 0900 Time Out: 1000 DATE: Jul 05, 2023 Total Billed Treatment Time: 60 Total Billed Treatment W/C 15', GT 15', Ex 8', FA 22' Sabina Gresham PT Jul 05, 2023 12:31
--- NOTE | 2023-07-05 13:33 | ST Dysphagia Evaluation ---
Speech Evaluation-General Medical Diagnosis Neurodegenerative Cerebellar Dysfunction with Ataxia. Onset Date: Aug 04, 2022 (progressive decline over the past year) Therapy Diagnosis Therapy Diagnosis: Oropharyngeal Dysphagia Precautions Precautions: Fall, Pressure Ulcer, Aspiration Precautions/Isolations: Aspiration, Fall Prevention, Standard Precautions, Pressure Ulcer Referral Referring Physician: Dr. Cochran Reason for Referral: Evaluation/Treatment Medical History Reviewed History: Yes Social History Current Living Status: Spouse Speech PLF/Current-Dysphagia Prior Level of Function The patient reported he consumes a regular consistency diet with thin liquids at home. Per patient, "I cough and choke a lot, mostly on liquids." The patient was unable to identify a specific time period when the difficulty initiated however does know '"it's been awhile." The patient denied a recent or multiple occasions of pneumonia or respiratory infections. Per chart review, the patient has experienced recent weight loss. Subjective The patient was seated upright in his recliner, awake, upon entrance to his room by the clinician. The patient greeted the clinician appropriately and was agreeable to participation in the clinical bedside swallowing evaluation. To note, the patient displays a "wet" vocal quality at baseline which he freq uently clears with a spontaneous throat clear. The patient does appear fatigued, closing his eyes throughout the clinician's time. Cognitive Status Patient Orientation: Person, Place, Situation Oral Motor Skills Dentition: Edentalous (Upper), Natural (Lower) Current Food Consistancy: Regular, Thin Liquids Ability to Follow Directions: Good Oral Expression Ability: Mild Impairment Voice Voice Phonatory-Based Quality: Weak (Intermittently "wet.") Voice Pitch: Normal Voice Loudness: Mildly Soft/Quiet Face Facial Symmetry: Asymmetrical (Slight right weakness noted.) Oral-Facial Assessment Oral-Facial Dentition: Normal Labial Seal Description: Weak, Poor Coordination Smile: Normal Lingual Protrusion: Normal Lingual ROM: Normal Lingual Strength: Normal Volitional Dry Swallow: Yes Voluntary Cough: Yes Can Clear Throat Volitionally: Yes Dysphagia Evaluation Consistencies Presented: Thin Liquid (Teaspoon, cup edge, straw sip), Mechanical Soft, [place] Thick Liquid (Teaspoon, cup edge), Pureed The patient demonstrated prolonged mastication with a soft solid, with disorganized bolus formation present. The prolonged mastication appeared directly related to the patient's edentulous upper state. Pharyngeal Phase: Decreased A/P Bolus Transit, Multiple Swallow Attempts, Delayed Swallow The patient demonstrated delayed posterior transfer with suspected delay of the pharyngeal swallow. The patient reported "it just feels like I can't get it started sometimes." The patient demonstrated an increasingly wet vocal quality with thin liquids. Following trials of thin liquid via cup edge and straw sip, immediate throat clearing and coughing were displayed. Overt s/s of suspected aspiration were not displayed with mildly thick liquids via teaspoon and cup edge drink, puree, or soft solid consistencies. Dietary Recommendations: Mechanical Soft (MM5) Liquid Recommendations: [place] Consistancy (Mildly thick.) Recommendations: - MM5 with mildly thick liquids, as tolerated. - Fully upright and alert for P.O. intake. - Small bites and sips. - No straws. - Monitor for s/s of suspected aspiration with P.O. intake. If demonstrated, please contact speech pathology. - Speech pathology to monitor the patient's tolerance of the P.O. diet consistency and provide appropriate oropharyngeal swallowing exercises for improvement (as appropriate). The results and recommendations were extensively discussed with the patient, written on the in-room white board, and provided to the RN. Dysphagia Evaluation Summary The patient demonstrated suspected oropharyngeal dysphagia characterized by prolonged mastication, poor bolus formation, suspected delay of the pharyngeal swallow and poor airway protection in the presence of bolus material. The patient demonstrated throat clearing and coughing immediately following the swallow with thin liquids (via cup sip and straw). Speech Short Term Goals Short Term Goals Short Term Goals 1. The patient will display safe swallowing strategies with 80% accuracy and mild verbal/visual cueing. Time Frame-STG: Five Days. Speech Residential Goals Division Head Goals 1. The patient will tolerate the least restrictive diet consistency without s/s of suspected aspiration. Time Frame: One Week. Speech-Plan Treatment Plan Speech Therapy Treatment Plan: Continue Plan of Care Treatment Duration: Jul 13, 2023 Frequency: Modified Program (IRF) Estimated Hrs Per Day: .25 hour per day Rehab Potential: Fair Pt/Family Agrees to Plan: Yes Safety Risks/Education Teaching Recipient: Patient Teaching Methods: Discussion Response to Teaching: Reinforcement Needed Education Topics Provided: Results, Recommendations, Plan of Care, Safe Swallowing Precautions Time Speech Therapy Time In: 10:30 Speech Therapy Time Out: 11:00 DATE: Jul 05, 2023 Total Billed Time: 30 Billed Treatment Time 1, IVET NATARAJAN ELIZABETH ST Jul 05, 2023 13:33
--- NOTE | 2023-07-05 15:58 | Occupational Ther Daily Note ---
OT Current Status-Daily Note Subjective Pt seated in bedside recliner upon arrival. Pt consented to OT session. ADL-Treatment Therapy Code Descriptions/Definitions Functional [place] Measure: 0=Not Assessed/NA 4=Minimal Assistance 1=Total Assistance 5=Supervision or Setup 2=Maximal Assistance 6=Modified [place] 3=Moderate Assistance 7=Complete IndependenceSCALE: Activities may be completed with or without assistive devices. 7-Ikluslvsvb-mwjfzje completes the activity by him/herself with no assistance from a helper. 5-Set-up or Clean-up Assistance-helper sets up or cleans up; patient completes activity. [place] assists only prior to or following the activity. 4-Supervision or Touching Assistance-helper provides verbal cues and/or touching/steadying and/or contact guard assistance as patient completes activity. Assistance may be provided throughout the activity or intermittently. 3-Partial/Moderate Assistance-helper does LESS THAN HALF the effort. [place] lifts, holds or supports trunk or limbs, but provides less than half the effort. 2-Substantial/Maximal Assistance-helper does MORE THAN HALF the effort. [place] lifts or holds trunk or limbs and provides more than half the effort. 6-Fdmcrjfob-raeogk does ALL the effort. Patient does none of the effort to complete the activity. Or, the assistance of 2 or more helpers is required for the patient to complete the activity. If activity was not attempted, code reason: 7-Patient Refused. 9-Not Applicable-not attempted and the patient did not perform the activity before the current illness, exacerbation or injury. 10-Not Attempted due to Environmental Limitations-(lack of equipment, weather restraints, etc.). 88-Not Attempted due to Medical Conditions or Safety Concerns. Other Treatment Pt ambulated from bedside chair<>WC with Mod A x 1 with RW. Verbal cues needed for safety and managing RW. Pt performed seated activity with pipe tree with 1# wrist weights donned to BUE's to increase BUE strength, endurance, activity tolerance, and executive functioning skills to increase (I) with ADLs and IADLs. Pt performed 3 trials with min verbal cues needed to complete activity. Pt performed seated activity with pink theraputty where pt retrieved 15 beads to increase FMC/dexterity, transit authority police officer strength, and endurance to increase (I) with ADLs and IADLs. Pt required no rest breaks while performing activity. Education OT Patient Education: Energy conservation, Progress toward Goal/Update tx plan, Purpose of tx/functional activities, Rehab process, Safety issues, Transfer techniques, Use of adapted equipment, W/C management Teaching Recipient: Patient Teaching Methods: Demonstration, Discussion Response to Teaching: Verbalize Understanding, Return Demonstration, Reinforcement Needed OT Shelter Goals Shelter Goals Acute change in mental status: 0 Inattention: 2 Disorganized thinkin Altered level of consciousness: 0 Eating (QC): 6 Oral Hygiene (QC): 6 Toileting Hygiene (QC): 5 Shower/Bathe Self (QC): 4 Upper Body Dressing (QC): 6 Lower Body Dressing (QC): 4 On/Off Footwear (QC): 6 1=Demonstrate adherence to instructed precautions during ADL tasks. 2=Patient will verbalize/demonstrate understanding of assistive devices/modifications for ADL. 3=Patient will improve strength/tolerance for activity to enable patient to perform ADL's. OT Education/Plan Discharge Recommendations Plan/Recommendations: Continue POC Treatment Plan/Plan of Care Treatment,Training & Education: Yes Patient would benefit from OT for education, treatment and training to promote independence in ADL's, mobility, safety and/or upper extremity function for ADL's. Plan of Care: ADL Retraining, Caregiver Training, Cognitive Retraining, Functional Mobility, Group Exercise/Act as Ind, UE Funct Exercise/Act, UE Neuromus Re-Ed/Coord, W/C Management Training Treatment Duration: Jul 18, 2023 Frequency: At least 5 of 7 days/Wk (IRF) Estimated Hrs Per Day: 1.5 hours per day Agreement: Yes Ending session, pt remained seated in bedside recliner with needs/call light in reach. Time Start Time: 11:00 Stop Time: 12:00 DATE: Jul 05, 2023 Total Time Billed (hr/min): 60 Billed Treatment Time 60 minutes FA 4 (60 minutes) PAMELA DUKES Jul 05, 2023 15:58
--- NOTE | 2023-07-05 16:04 | Occupational Ther Daily Note ---
OT Current Status-Daily Note Subjective Pt consented to OT session this PM. ADL-Treatment Therapy Code Descriptions/Definitions Functional [place] Measure: 0=Not Assessed/NA 4=Minimal Assistance 1=Total Assistance 5=Supervision or Setup 2=Maximal Assistance 6=Modified [place] 3=Moderate Assistance 7=Complete IndependenceSCALE: Activities may be completed with or without assistive devices. 9-Uzeabwwbgb-yvoldoa completes the activity by him/herself with no assistance from a helper. 5-Set-up or Clean-up Assistance-helper sets up or cleans up; patient completes activity. [place] assists only prior to or following the activity. 4-Supervision or Touching Assistance-helper provides verbal cues and/or touching/steadying and/or contact guard assistance as patient completes activity. Assistance may be provided throughout the activity or intermittently. 3-Partial/Moderate Assistance-helper does LESS THAN HALF the effort. [place] lifts, holds or supports trunk or limbs, but provides less than half the effort. 2-Substantial/Maximal Assistance-helper does MORE THAN HALF the effort. [place] lifts or holds trunk or limbs and provides more than half the effort. 9-Jnbjvjvbt-fiwryy does ALL the effort. Patient does none of the effort to compl ete the activity. Or, the assistance of 2 or more helpers is required for the patient to complete the activity. If activity was not attempted, code reason: 7-Patient Refused. 9-Not Applicable-not attempted and the patient did not perform the activity before the current illness, exacerbation or injury. 10-Not Attempted due to Environmental Limitations-(lack of equipment, weather restraints, etc.). 88-Not Attempted due to Medical Conditions or Safety Concerns. Oral Hygiene (QC): 4 (Pt performed oral care seated in WC at sink with SBA. Verbal cues needed at times for sequencing.) Toileting Hygiene (QC): 3 (Partial/mod A for toileting as pt voided seated on toilet. Pt required (A) to manage clothing.) Toilet Transfer (QC): 3 (Partial/mod A for toilet t/f utilizing GB's for safety. Verbal cues needed for safety.) Other Treatment Pt performed seated activity with navigating Casetext game to increase executive functioning skills to increase (I) with ADLs and IADLs. Pt performed 3 trials and required min/mod verbal cues for accuracy. Intermittent rest breaks needed secondary to fatigue. Education OT Patient Education: Energy conservation, Modified ADL techniques, Progress toward Goal/Update tx plan, Purpose of tx/functional activities, Rehab process, Safety issues, Transfer techniques, W/C management Teaching Recipient: Patient Teaching Methods: Demonstration, Discussion Response to Teaching: Verbalize Understanding, Return Demonstration, Reinforcement Needed OT Prison Goals Prison Goals Acute change in mental status: 0 Inattention: 2 Disorganized thinkin Altered level of consciousness: 0 Eating (QC): 6 Oral Hygiene (QC): 6 Toileting Hygiene (QC): 5 Shower/Bathe Self (QC): 4 Upper Body Dressing (QC): 6 Lower Body Dressing (QC): 4 On/Off Footwear (QC): 6 1=Demonstrate adherence to instructed precautions during ADL tasks. 2=Patient will verbalize/demonstrate understanding of assistive devices/modifications for ADL. 3=Patient will improve strength/tolerance for activity to enable patient to perform ADL's. OT Education/Plan Discharge Recommendations Plan/Recommendations: Continue POC Treatment Plan/Plan of Care Treatment,Training & Education: Yes Patient would benefit from OT for education, treatment and training to promote independence in ADL's, mobility, safety and/or upper extremity function for ADL's. Plan of Care: ADL Retraining, Caregiver Training, Cognitive Retraining, Functional Mobility, Group Exercise/Act as Ind, UE Funct Exercise/Act, UE Neuromus Re-Ed/Coord, W/C Management Training Treatment Duration: Jul 18, 2023 Frequency: At least 5 of 7 days/Wk (IRF) Estimated Hrs Per Day: 1.5 hours per day Agreement: Yes Ending session, pt remained seated in bedside recliner with needs/call light in reach. Time Start Time: 14:00 Stop Time: 14:30 DATE: Jul 05, 2023 Total Time Billed (hr/min): 30 Billed Treatment Time 30 minutes ADL 1 (15 minutes) FA 1 (15 minutes) PAMELA DUKES Jul 05, 2023 16:04
[2023-07-05 19:59] VITALS: BP 115/75
[2023-07-05] MEDS: ACETAMINOPHEN 325 MG TABLET PO PRN (20:06)
[2023-07-05] MEDS: traZODone 150 MG (DESYREL) TABLET PO SCH (20:06)
[2023-07-06 08:00] VITALS: BP 133/84
[2023-07-06] MEDS: DOCUSATE SODIUM 100 MG CAPSULE PO SCH ×2 (08:43→19:24)
[2023-07-06] MEDS: SENNA W/DOCUSATE TABLET PO SCH ×2 (08:43→19:24)
[2023-07-06] MEDS: FOLIC ACID 1 MG TAB PO SCH (08:55)
[2023-07-06] MEDS: CYANOCOBALAMIN 1,000 MCG TABLET PO SCH (08:55)
[2023-07-06] MEDS: LORATADINE 10 MG TABLET PO SCH (08:55)
[2023-07-06] MEDS: HYDROcodone/ACETAMINOPHEN 10/325 TABLET PO SCH ×3 (08:56→19:34)
[2023-07-06] MEDS: ENOXAPARIN 40 MG/0.4 ML SYRINGE SC SCH (08:56)
--- NOTE | 2023-07-06 10:41 | PM&R Progress Note ---
Subjective HPI/CC On Admission Date Seen by Provider: Jul 06, 2023 Time Seen by Provider: 10:45 Subjective/Events-last exam 07/06/2023: Patient doing a lot better Strengthening up No falls Pain is improved 07/05/2023: No major issues Nurse saw him take a pill that she did not administer and he was very lethargic afterwards No new pain Narcotic and Xanax dependence for years before transferred from [facility] to pr BM loose but [place] helps Review of Systems General: Fatigue, Malaise Objective Exam Vital Signs Vital Signs Date Time Temp Pulse Resp B/P (MAP) Pulse Ox O2 Delivery O2 Flow Rate FiO2 07/06/23 20:44 Room Air 07/06/23 19:38 37.1 96 20 127/65 (85) 96 Capillary Refill : General Appearance: No Apparent Distress, WD/WN, Anxious, Chronically ill, Thin, Other (debilitated) HEENT: PERRL/EOMI, Normal ENT Inspection, Pharynx Normal Neck: Full Range of Motion, Normal Inspection, Non Tender, Supple, Carotid Bruit Respiratory: Chest Non Tender, Lungs Clear, Normal Breath Sounds, No Accessory Muscle Use, No Respiratory Distress Cardiovascular: Regular Rate, Rhythm, No Edema, No Gallop, No JVD, No Murmur, Normal Peripheral Pulses Gastrointestinal: Normal Bowel Sounds, No Organomegaly, No Pulsatile Mass, Non Tender, Soft Back: Normal Inspection, No CVA Tenderness, No Vertebral Tenderness Extremity: Normal Capillary Refill, Normal Inspection, Normal Range of Motion, Non Tender, No Calf Tenderness, No Pedal Edema Neurologic/Psychiatric: Alert, Oriented x3, 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 FIM Transfers Therapy Code Descriptions/Definitions Functional [place] Measure: 0=Not Assessed/NA 4=Minimal Assistance 1=Total Assistance 5=Supervision or Setup 2=Maximal Assistance 6=Modified [place] 3=Moderate Assistance 7=Complete IndependenceSCALE: Activities may be completed with or without assistive devices. 5-Pvetdoxjre-gsaqtyu completes the activity by him/herself with no assistance from a helper. 5-Set-up or Clean-up Assistance-helper sets up or cleans up; patient completes activity. [place] assists only prior to or following the activity. 4-Supervision or Touching Assistance-helper provides verbal cues and/or touching/steadying and/or contact guard assistance as patient completes activity. Assistance may be provided throughout the activity or intermittently. 3-Partial/Moderate Assistance-helper does LESS THAN HALF the effort. [place] lifts, holds or supports trunk or limbs, but provides less than half the effort. 2-Substantial/Maximal Assistance-helper does MORE THAN HALF the effort. [place] lifts or holds trunk or limbs and provides more than half the effort. 5-Emmnvasvo-zyccer does ALL the effort. Patient does none of the effort to complete the activity. Or, the assistance of 2 or more helpers is required for the patient to complete the activity. If activity was not attempted, code reason: 7-Patient Refused. 9-Not Applicable-not attempted and the patient did not perform the activity before the current illness, exacerbation or injury. 10-Not Attempted due to Environmental Limitations-(lack of equipment, weather restraints, etc.). 88-Not Attempted due to Medical Conditions or Safety Concerns. Roll Left to Right (QC): 6 (with bed rail) Sit to Lying (QC): 5 (Therapist removed blankets from legs, then he was able to roll (R) and sit up to EOB (I) using the bed rail, but increased time to complete today compared to 07/04.) Sit to Stand (QC): 3 (min-mod (A) to FWW /c max cues for hand placement today. Retropulsive initially requiring mod (A).) Chair/Uuq-jn-Pgdjy Xfer(QC): 3 (min-mod (A) of 1 /c FWW with max cues to turn completely prior to sitting. 4 transfers completed) Car Transfer (QC): 3 (Min (A) with 4WW) Gait Training Does the Patient Walk?: Yes Distance: 20', 25' Walk 10 feet (QC): 3 (Mod (A) of 1 with max cues for step length, posture, UE use on FWW. W/C f/u. Declined compared to 07/04.) Walk 50 ft with 2 Turns(QC): 3 (min- CGA /c FWW) Walk 150 ft (QC): 88 (unable to reach distance due to fatigue/leg weakness) Walking 10ft/uneven surface-QC: 3 (min (A) with 4WW) Gait Assistive Device: FWW Wheelchair Training Does the Pt Use a Wheelchair?: Yes Distance: 150' Wheel 50 ft with 2 turns (QC): 5 (w/c legs applied for patient prior to propulsion) Wheel 150 ft (QC): 5 (w/c legs applied for patient prior to propulsion) Type of Wheelchair: Manual Stair Training #of Steps: 3 (mod (A) to steady patient and to help navigate 4WW up 2" curb.) 1 Step (curb) (QC): 3 (min (A) with (B) rails with cues for sequence.) 4 Steps (QC): 3 (mod (A) with (B) rails, fatigued, tremulous) 12 Steps (QC): 9 Balance Picking up an Object (QC): 3 (Mod (A) ) ADL-Treatment Eating (QC): 5 (Set-up A to open packages. Pt able to feed self.) Oral Hygiene (QC): 4 (Pt performed oral care seated in WC at sink with SBA. Verbal cues needed at times for sequencing.) Shower/Bathe Self (QC): 3 (Partial/mod A for bathing seated on built in shower bench in shower with pt performing sit<>stand with Min A x 1 to clean ricky area and buttocks.) Upper Body Dressing (QC): 4 (SBA for donning/soffing shirt seated in WC) Lower Body Dressing (QC): 3 (Partial/mod A for donning/doffing pants and underwear. Sit<>stand with CGA x 1 to pull pants over hips. ) On/Off Footwear (QC): 4 (SBA to don/doff socks and shoes seated in WC) Toileting Hygiene (QC): 3 (Partial/mod A for toileting as pt voided seated on toilet. Pt required (A) to manage clothing.) Toilet Transfer (QC): 3 (Partial/mod A for toilet t/f utilizing GB's for safety. 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
[2023-07-06] MEDS: ALPRAZolam 1 MG TABLET PO PRN ×2 (11:05→20:41)
--- NOTE | 2023-07-06 11:43 | Speech Therapy Daily Note ---
Speech Daily Progress Note Subjective Date Seen by Provider: Jul 06, 2023 Time Seen by Provider: 09:30 The patient was seated upright in his recliner, awake and alert, upon entrance to his room by the clinician. The patient does display an improved level of alertness on this date. The patient greeted the clinician appropriately and was agreeable to participation in the skilled dysphagia treatment session. On 07/05/23, the patient participated in a clinical bedside swallowing evaluation. At the time of the evaluation, the clinician recommended mildly thick liquids due to s/s of suspected aspiration displayed with thin liquid (coughing, throat clearing). Upon entrance to the patient's room on this date, the patient has four thin liquid items at bedside as well as straws (both which were recommended against and written on the in-room white board). The items were removed from reach and a discussion with the RN was completed. Per RN, she was unaware of who provided the liquid as the order remains mildly thick liquids in the patient's chart. The RN stated in report it was noted the patient was fatigued during the swallowing evaluation the day prior and may do better now that is he more alert. Regardless, removal of the thickened liquid is decided following a speech pathology re-evaluation or physician recommendation. The patient stated he has received thin liquids throughout the prior evening and into the morning. Report of thickened liquids was provided to the RN following the evaluation on 07/05/23, documented in the patient's chart, written on the in- room white board and ordered in the chart. Objective The patient denied overt s/s of suspected aspiration throughout the prior 24 h ours with the mildly thick liquids or the thin liquids he has been provided. The patient was agreeable to trials of thin liquid to re-assess the appropriateness and safety of a liquid consistency upgrade. The patient was provided five teaspoons of water, eight cup edge sips of water, and five straw sips of water. Overt s/s of suspected aspiration were not displayed with thin liquid provided throughout the session. Safe swallowing precautions were discussed, most importantly small sips. S/s of suspected aspiration were provided to the patient as well as education regarding the oropharyngeal swallowing function. The patient verbalized comprehension of the material. Recommendations: - MM5 with thin liquids, as tolerated. - Fully upright and alert for P.O. intake. - Small bites and sips, only. - Monitor for s/s of suspected aspiration with P.O. intake. If demonstrated, please contact speech pathology. The results and recommendations were provided to the patient and the patient's RN immediately following completion. Assessment Assessment Current Status: Fair Progress Treatment Plan Continue Plan of Care Speech Short Term Goals Short Term Goals Short Term Goals 1. The patient will display safe swallowing strategies with 80% accuracy and mild verbal/visual cueing. Time Frame-STG: Five Days. Speech Mcc Goals Mcc Goals 1. The patient will tolerate the least restrictive diet consistency without s/s of suspected aspiration. Time Frame: One Week. Speech-Plan Treatment Plan Speech Therapy Treatment Plan: Continue Plan of Care Treatment Duration: Jul 13, 2023 Frequency: Modified Program (IRF) Estimated Hrs Per Day: .5 hour per day Rehab Potential: Fair Pt/Family Agrees to Plan: Yes Safety Risks/Education Teaching Recipient: Patient Teaching Methods: Discussion Response to Teaching: Verbalize Understanding, Return Demonstration, Reinforcement Needed Education Topics Provided: Safe Swallowing Precautions Time Speech Therapy Time In: 09:30 Speech Therapy Time Out: 10:00 DATE: Jul 06, 2023 Total Billed Time: 30 Billed Treatment Time [address] Jul 06, 2023 11:43
--- NOTE | 2023-07-06 14:47 | Physical Therapy Daily Note ---
PT Daily Note-Current Subjective Patient grudgingly agreed to PT this a.m. Much less lethargic that yesterday. Continues to rate his chronic low back pain as 8/10. Pain Section J - Health Conditions 1. Rarely or not at all 2. Occasionally 3. Frequently 4. Almost constantly 8. Unable to answer Pain Effect on Sleep: 1 Pain Interference with Therapy: 3 Pain Interference w/Day-to-Day: 3 Transfers SCALE: Activities may be completed with or without assistive devices. 1-Evgcqacqsp-xogemai completes the activity by him/herself with no assistance from a helper. 5-Set-up or Clean-up Assistance-helper sets up or cleans up; patient completes activity. [place] assists only prior to or following the activity. 4-Supervision or Touching Assistance-helper provides verbal cues and/or touching/steadying and/or contact guard assistance as patient completes activity. Assistance may be provided throughout the activity or intermittently. 3-Partial/Moderate Assistance-helper does LESS THAN HALF the effort. [place] lifts, holds or supports trunk or limbs, but provides less than half the effort. 2-Substantial/Maximal Assistance-helper does MORE THAN HALF the effort. [place] lifts or holds trunk or limbs and provides more than half the effort. 2-Otbxevjvy-woghyl does ALL the effort. Patient does none of the effort to complete the activity. Or, the assistance of 2 or more helpers is required for the patient to complete the activity. If activity was not attempted, code reason: 7-Patient Refused. 9-Not Applicable-not attempted and the patient did not perform the activity before the current illness, exacerbation or injury. 10-Not Attempted due to Environmental Limitations-(lack of equipment, weather restraints, etc.). 88-Not Attempted due to Medical Conditions or Safety Concerns. Sit to Stand (QC): 4 (CGA from recliner x 2, from w/c x 2, from arm chair x 6 /c vc each time for hand placement. No carry-over.) Chair/Iba-db-Kwwjm Xfer(QC): 3 (Min (A) for 6 attempts /c v.c. to completely turn and back up to seat surface & for hand placement chair>chair. each time would not place hands on chair stand>sit and would fall into chair. Sat on arm of chair x 1 due to not turning completely. ) Weight Bearing Weight Bearing/Tolerated Weight Bearing/Tolerated Gait Training Does the Patient Walk?: Yes Distance: 152', 50' Walk 50 ft with 2 Turns(QC): 3 (min (A)-CGA with mod cues to increase step length - patient able when cued.) Walk 150 ft (QC): 3 (CGA-Min (A) /c FWW for 152' /c mod cues for step length - able to when cued.) Patient refused to walk any further /p 2nd bout of gait of 50', even with exte nded sitting resting break. Had patient propel his w/c 100' to room, mod (I) /c (B) UE's. Wheelchair Training Does the Pt Use a Wheelchair?: Yes Wheel 50 ft with 2 turns (QC): 6 Type of Wheelchair: Manual 100' w/c prop back to room. Exercises (B) LE ex while sitting in recliner with feet propped up to begin session: RTB DF x 10 (B) RTB PF x 10 (B) Hip abd/add x10 (B) with feet on floor: LAQ RTB x 10 (B) Ham curls RTB x 10 (B) Hip flexion RTB x 10 (B) Hip extension RTB x 10 (B) Hip abduction RTB x 10 (B) Hip isometric adduction (blanket roll squeeze) x 10 Treatments Patient able to don jeans today sitting in recliner with setup assist only (much improved compared to 07/05). Patient able to stand from recliner to FWW CGA and pull up pants, stand to zip/button pants and secure belt without an UE support nor external assist (much improved compared to the severe retropulsion apparent 07/05). Patient able to don and tie his own shoes sitting in recliner (I). Assessment Patient became very disgruntled during therapy. Stated he needed a xanax. Stated "I'm tired of this bullshit". Explained reason for ARU, difficulties he was having at home, and 's difficulty caring for patient. Discussed ARU's goal was to improved his safety, strength, balance, gait, transfers so that he could return home safely -- he stated he was "not interested, lady". Discussed that therapy was not necessarily easy, but if he put in the work, the benefit would be great if he is able to return home. Patient continued to state he thought this was all "bullshit". 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 Goals Voltage Regulator Assembler Goals 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 Goals Time Frame: Jul 25, 2023 Roll Left & Right (QC): 6 Sit to Lying (QC): 6 Lying-Sitting on Side/Bed(QC): 6 Sit to Stand (QC): 5 Chair/Mgu-uh-Zkpjx Xfer(QC): 5 Toilet Transfer (QC): 5 Car Transfer (QC): 5 Does the Patient Walk: Yes Walk 10 feet (QC): 5 (/c FWW) Walk 50ft with 2 Turns (QC): 5 (/c FWW) Walk 150 ft (QC): 4 (/c FWW) Walking 10ft on Uneven Surface: 4 (/c FWW) 1 Step (curb) (QC): 4 (/c FWW or railing) 4 Steps (QC): 4 (with railings) 12 Steps (QC): 9 Picking up an Object (QC): 5 (with hydraulic miner) Does the Pt use WC or Scooter?: Yes Wheel 50 feet with 2 turns (QC: 6 Type: Manual Wheel 150 feet: 6 Type: Manual PT Plan Problem List Problem List: Activity Tolerance, Functional Strength, Safety, Balance, Gait, Transfer, Bed Mobility, ROM Treatment/Plan Treatment Plan: Continue Plan of Care Treatment Plan: Education, Functional Activity Fide, Functional Strength, Group Therapy, Gait, Safety, Therapeutic Exercise, Transfers, Other Treatment Duration: Jul 25, 2023 Frequency: At least 5 of 7 days/Wk (IRF) Estimated Hrs Per Day: 1.5 hours per day Patient and/or Family Agrees t: Yes Safety Risks/Education Patient Education: Gait Training, Transfer Techniques, Issued Written HEP Teaching Recipient: Patient Teaching Methods: Demonstration, Handout, Discussion, Audiovisual Response to Teaching: Reinforcement Needed Discharge Recommendations Therapy Discharge Recommendati: 24 Hour Supervision, Post Acute PT Equpiment Recommendations-D/C: Front Wheeled Walker (Continue to recommend a FWW vs the 4WW. A FWW allows patient to use UE's to support himself during gait, whereas the 4WW does not.) Time Time In: 800 Time Out: 900 DATE: Jul 06, 2023 Total Billed Treatment Time: 60 Total Billed Treatment Ex 20, GT 20, FA 10, W/C 10 Sabina Gresham PT Jul 06, 2023 14:47
--- NOTE | 2023-07-06 15:09 | Occupational Ther Daily Note ---
OT Current Status-Daily Note Subjective Pt consented to OT session this AM Pain Numeric Pain Scale: 8 Location: Lower Location Body Site: Back Pain Description: Ache Mental Status/Objective Patient Orientation: Person, Place, Time, Situation ADL-Treatment Therapy Code Descriptions/Definitions Functional [place] Measure: 0=Not Assessed/NA 4=Minimal Assistance 1=Total Assistance 5=Supervision or Setup 2=Maximal Assistance 6=Modified [place] 3=Moderate Assistance 7=Complete IndependenceSCALE: Activities may be completed with or without assistive devices. 7-Kneznehjth-kylgqgc completes the activity by him/herself with no assistance from a helper. 5-Set-up or Clean-up Assistance-helper sets up or cleans up; patient completes activity. [place] assists only prior to or following the activity. 4-Supervision or Touching Assistance-helper provides verbal cues and/or touching/steadying and/or contact guard assistance as patient completes activity. Assistance may be provided throughout the activity or intermittently. 3-Partial/Moderate Assistance-helper does LESS THAN HALF the effort. [place] lifts, holds or supports trunk or limbs, but provides less than half the effort. 2-Substantial/Maximal Assistance-helper does MORE THAN HALF the effort. [place] lifts or holds trunk or limbs and provides more than half the effort. 9-Pdseoukpz-obfrfr does ALL the effort. Patient does none of the effort to complete the activity. Or, the assistance of 2 or more helpers is required for the patient to complete the activity. If activity was not attempted, code reason: 7-Patient Refused. 9-Not Applicable-not attempted and the patient did not perform the activity before the current illness, exacerbation or injury. 10-Not Attempted due to Environmental Limitations-(lack of equipment, weather restraints, etc.). 88-Not Attempted due to Medical Conditions or Safety Concerns. Oral Hygiene (QC): 4 (SBA for oral care seated in WC at sink; verbal cues needed at times.) Other Treatment Transfer from bedside chair<>WC performed with Min A x 1 with RW SPT from WC<>EOM performed with Min A x 1 Pt performed seated activity at EOM where pt performed BUE strengthening ex's with shoulder arch with 1# wrist weights donned to BUE's to increase core strength, BUE strength, functional reaching, endurance, and sitting tolerance to increase (I) with ADLs and IADLs. Verbal cues needed for posture as pt noted to demo L lateral lean secondary to fatigue. Increased time needed to complete activity. Pt performed sit<>stand activity from EOM with Min A x 1 performing 1 set x 5 reps to increase BLE strength, endurance, and activity tolerance. Intermittent rest breaks needed secondary to fatigue. Verbal and tactile cues needed for safety and posture. Pt performed activity seated at EOM with 5 cones placed on pt's R and L side where pt reached contralateral for cones and when performed sit<>stand to stack cones on table. Activity performed to improve core strength, functional reaching, dynamic sitting balance, endurance, BLE strength, and functional transfers to increase (I) with ADLs and IADLs. Transfer from sit<>stand performed with Min A x 1. Pt required mod verbal cues while completing activity for correct posture when sitting at EOM as pt noted with posterior lean. Increased time needed to complete activity. Pt performed seated activity at EOM while playing connect 4 to increase sitting tolerance, core strength, executive functioning skills, and static sitting balance. Pt required max verbal cues for posture as pt noted with posterior lean while seated at EOM. Therapist placed wedge behind pt to stabilize core while at EOM. Pt performed 3 games. Activity performed to increase (I) with ADLs and IADLs. Pt attempted to perform seated activity at EOM with puzzle to increase sitting tolerance, endurance, core strength, and executive functioning skills. Task terminated secondary to pt reporting pain in back and needed to return to WC. Education OT Patient Education: Energy conservation, Progress toward Goal/Update tx plan, Purpose of tx/functional activities, Reviewed precautions, Rehab process, Safety issues, Transfer techniques Teaching Recipient: Patient Teaching Methods: Demonstration, Discussion Response to Teaching: Verbalize Understanding, Return Demonstration, Reinforcement Needed OT Manager Body Goals Manager Body Goals Acute change in mental status: 0 Inattention: 2 Disorganized thinkin Altered level of consciousness: 0 Eating (QC): 6 Oral Hygiene (QC): 6 Toileting Hygiene (QC): 5 Shower/Bathe Self (QC): 4 Upper Body Dressing (QC): 6 Lower Body Dressing (QC): 4 On/Off Footwear (QC): 6 1=Demonstrate adherence to instructed precautions during ADL tasks. 2=Patient will verbalize/demonstrate understanding of assistive devices/mod ifications for ADL. 3=Patient will improve strength/tolerance for activity to enable patient to perform ADL's. OT Education/Plan Discharge Recommendations Plan/Recommendations: Continue POC Treatment Plan/Plan of Care Treatment,Training & Education: Yes Patient would benefit from OT for education, treatment and training to promote independence in ADL's, mobility, safety and/or upper extremity function for ADL's. Plan of Care: ADL Retraining, Caregiver Training, Cognitive Retraining, Functional Mobility, Group Exercise/Act as Ind, UE Funct Exercise/Act, UE Neuromus Re-Ed/Coord, W/C Management Training Treatment Duration: Jul 18, 2023 Frequency: At least 5 of 7 days/Wk (IRF) Estimated Hrs Per Day: 1.5 hours per day Agreement: Yes Rehab Potential: Fair Ending session, pt remained seated in recliner with needs/call light in reach. Time Start Time: 11:00 Stop Time: 12:00 DATE: Jul 06, 2023 Total Time Billed (hr/min): 60 Billed Treatment Time 60 minutes ADL 1 (15 minutes) FA 3 (45 minutes) PAMELA DUKES Jul 06, 2023 15:09
--- NOTE | 2023-07-06 15:15 | Occupational Ther Daily Note ---
OT Current Status-Daily Note Subjective Pt consented to OT session ADL-Treatment Therapy Code Descriptions/Definitions Functional [place] Measure: 0=Not Assessed/NA 4=Minimal Assistance 1=Total Assistance 5=Supervision or Setup 2=Maximal Assistance 6=Modified [place] 3=Moderate Assistance 7=Complete IndependenceSCALE: Activities may be completed with or without assistive devices. 1-Yfzoeztbrx-oyibftn completes the activity by him/herself with no assistance from a helper. 5-Set-up or Clean-up Assistance-helper sets up or cleans up; patient completes activity. [place] assists only prior to or following the activity. 4-Supervision or Touching Assistance-helper provides verbal cues and/or touching/steadying and/or contact guard assistance as patient completes activity. Assistance may be provided throughout the activity or intermittently. 3-Partial/Moderate Assistance-helper does LESS THAN HALF the effort. [place] lifts, holds or supports trunk or limbs, but provides less than half the effort. 2-Substantial/Maximal Assistance-helper does MORE THAN HALF the effort. [place] lifts or holds trunk or limbs and provides more than half the effort. 6-[place]kvusijsk-qskiqk does ALL the effort. Patient does none of the effort to complete the activity. Or, the assistance of 2 or more helpers is required for the patient to complete the activity. If activity was not attempted, code reason: 7-Patient Refused. 9-Not Applicable-not attempted and the patient did not perform the activity before the current illness, exacerbation or injury. 10-Not Attempted due to Environmental Limitations-(lack of equipment, weather restraints, etc.). 88-Not Attempted due to Medical Conditions or Safety Concerns. Other Treatment Pt performed seated activity with word search puzzle to increase executive functioning skills to increase (I) with ADLs and IADLs. Pt required increased amount of time to perform activity. Pt completed 08/20 words. Education Teaching Recipient: Patient OT Failure Analysis Engineer Goals Failure Analysis Engineer Goals Acute change in mental status: 0 Inattention: 2 Disorganized thinkin Altered level of consciousness: 0 Eating (QC): 6 Oral Hygiene (QC): 6 Toileting Hygiene (QC): 5 Shower/Bathe Self (QC): 4 Upper Body Dressing (QC): 6 Lower Body Dressing (QC): 4 On/Off Footwear (QC): 6 1=Demonstrate adherence to instructed precautions during ADL tasks. 2=Patient will verbalize/demonstrate understanding of assistive devices/modifications for ADL. 3=Patient will improve strength/tolerance for activity to enable patient to perform ADL's. OT Education/Plan Discharge Recommendations Plan/Recommendations: Continue POC Treatment Plan/Plan of Care Patient would benefit from OT for education, treatment and training to promote independence in ADL's, mobility, safety and/or upper extremity function for ADL's. Plan of Care: ADL Retraining, Caregiver Training, Cognitive Retraining, Fu nctional Mobility, Group Exercise/Act as Ind, UE Funct Exercise/Act, UE Neuromus Re-Ed/Coord, W/C Management Training Treatment Duration: Jul 18, 2023 Frequency: At least 5 of 7 days/Wk (IRF) Estimated Hrs Per Day: 1.5 hours per day Agreement: Yes Rehab Potential: Fair Time Start Time: 13:30 Stop Time: 14:00 DATE: Jul 06, 2023 Total Time Billed (hr/min): 30 Billed Treatment Time 30 minutes FA 1 PAMELA DUKES Jul 06, 2023 15:15
[2023-07-06 19:38] VITALS: BP 127/65
[2023-07-06] MEDS: traZODone 150 MG (DESYREL) TABLET PO SCH (20:41)
--- NOTE | 2023-07-07 06:14 | PM&R Progress Note ---
Subjective HPI/CC On Admission Date Seen by Provider: Jul 07, 2023 Time Seen by Provider: 09:00 Subjective/Events-last exam 07/07/2023: Patient much improved Moving around better Pain is always an issue Xanax and hydrocodone dependent for years before establishing his care with [facility] 07/06/2023: Patient doing a lot better Strengthening up No falls Pain is improved 07/05/2023: No major issues Nurse saw him take a pill that she did not administer and he was very lethargic afterwards No new pain Narcotic and Xanax dependence for years before transferred from PCP to [facility] BM loose but [place] helps Review of Systems General: Fatigue, Malaise Objective Exam Vital Signs Vital Signs Date Time Temp Pulse Resp B/P (MAP) Pulse Ox O2 Delivery O2 Flow Rate FiO2 07/07/23 20:05 92 Room Air 07/07/23 19:20 36.7 81 16 114/53 (73) Capillary Refill : General Appearance: No Apparent Distress, WD/WN, Anxious, Chronically ill, Thin, Other (debilitated) HEENT: PERRL/EOMI, Normal ENT Inspection, Pharynx Normal Neck: Full Range of Motion, Normal Inspection, Non Tender, Supple, Carotid Bruit Respiratory: Chest Non Tender, Lungs Clear, Normal Breath Sounds, No Accessory Muscle Use, No Respiratory Distress Cardiovascular: Regular Rate, Rhythm, No Edema, No Gallop, No JVD, No Murmur, Normal Peripheral Pulses Gastrointestinal: Normal Bowel Sounds, No Organomegaly, No Pulsatile Mass, Non Tender, Soft Back: Normal Inspection, No CVA Tenderness, No Vertebral Tenderness Extremity: Normal Capillary Refill, Normal Inspection, Normal Range of Motion, Non Tender, No Calf Tenderness, No Pedal Edema Neurologic/Psychiatric: Alert, Oriented x3, transport rn II-XII Norm as Tested, Abnormal Gait, Depressed Affect, Motor Weakness (generalized) Skin: Normal Color, Warm/Dry Lymphatic: No Adenopathy Results/Procedures Lab Patient resulted labs reviewed. FIM Transfers Therapy Code Descriptions/Definitions Functional [place] Measure: 0=Not Assessed/NA 4=Minimal Assistance 1=Total Assistance 5=Supervision or Setup 2=Maximal Assistance 6=Modified [place] 3=Moderate Assistance 7=Complete IndependenceSCALE: Activities may be completed with or without assistive devices. 2-Noieswcybu-puhnyxt completes the activity by him/herself with no assistance from a helper. 5-Set-up or Clean-up Assistance-helper sets up or cleans up; patient completes activity. [place] assists only prior to or following the activity. 4-Supervision or Touching Assistance-helper provides verbal cues and/or touching/steadying and/or contact guard assistance as patient completes activity. Assistance may be provided throughout the activity or intermittently. 3-Partial/Moderate Assistance-helper does LESS THAN HALF the effort. [place] lifts, holds or supports trunk or limbs, but provides less than half the effort. 2-Substantial/Maximal Assistance-helper does MORE THAN HALF the effort. [place] lifts or holds trunk or limbs and provides more than half the effort. 3-Iochhtexy-usizvj does ALL the effort. Patient does none of the effort to complete the activity. Or, the assistance of 2 or more helpers is required for the patient to complete the activity. If activity was not attempted, code reason: 7-Patient Refused. 9-Not Applicable-not attempted and the patient did not perform the activity before the current illness, exacerbation or injury. 10-Not Attempted due to Environmental Limitations-(lack of equipment, weather restraints, etc.). 88-Not Attempted due to Medical Conditions or Safety Concerns. Roll Left to Right (QC): 6 (with bed rail) Sit to Lying (QC): 5 (Therapist removed blankets from legs, then he was able to roll (R) and sit up to EOB (I) using the bed rail, but increased time to complete today compared to 07/04.) Sit to Stand (QC): 4 (CGA from recliner x 2, from w/c x 2, from arm chair x 6 /c vc each time for hand placement. No carry-over.) Chair/Rag-zp-Ejwps Xfer(QC): 3 (Min (A) for 6 attempts /c v.c. to completely turn and back up to seat surface & for hand placement chair>chair. each time would not place hands on chair stand>sit and would fall into chair. Sat on arm of chair x 1 due to not turning completely. ) Car Transfer (QC): 3 (Min (A) with 4WW) Gait Training Does the Patient Walk?: Yes Distance: 152', 50' Walk 10 feet (QC): 3 (Mod (A) of 1 with max cues for step length, posture, UE use on FWW. W/C f/u. Declined compared to 07/04.) Walk 50 ft with 2 Turns(QC): 3 (min (A)-CGA with mod cues to increase step length - patient able when cued.) Walk 150 ft (QC): 3 (CGA-Min (A) /c FWW for 152' /c mod cues for step length - able to when cued.) Walking 10ft/uneven surface-QC: 3 (min (A) with 4WW) Gait Assistive Device: FWW Wheelchair Training Does the Pt Use a Wheelchair?: Yes Distance: 150' Wheel 50 ft with 2 turns (QC): 6 Wheel 150 ft (QC): 5 (w/c legs applied for patient prior to propulsion) Type of Wheelchair: Manual Stair Training #of Steps: 3 (mod (A) to steady patient and to help navigate 4WW up 2" curb.) 1 Step (curb) (QC): 3 (min (A) with (B) rails with cues for sequence.) 4 Steps (QC): 3 (mod (A) with (B) rails, fatigued, tremulous) 12 Steps (QC): 9 Balance Picking up an Object (QC): 3 (Mod (A) ) ADL-Treatment Eating (QC): 5 (Set-up A to open packages. Pt able to feed self.) Oral Hygiene (QC): 4 (SBA for oral care seated in WC at sink; verbal cues needed at times.) Shower/Bathe Self (QC): 3 (Partial/mod A for bathing seated on built in shower bench in shower with pt performing sit<>stand with Min A x 1 to clean ricky area and buttocks.) Upper Body Dressing (QC): 4 (SBA for donning/soffing shirt seated in WC) Lower Body Dressing (QC): 3 (Partial/mod A for donning/doffing pants and underwear. Sit<>stand with CGA x 1 to pull pants over hips. ) On/Off Footwear (QC): 4 (SBA to don/doff socks and shoes seated in WC) Toileting Hygiene (QC): 3 (Partial/mod A for toileting as pt voided seated on toilet. Pt required (A) to manage clothing.) Toilet Transfer (QC): 3 (Partial/mod A for toilet t/f utilizing GB's for safety. 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
[2023-07-07 07:49] VITALS: BP 108/88
[2023-07-07] MEDS: SENNA W/DOCUSATE TABLET PO SCH ×2 (08:44→21:34)
[2023-07-07] MEDS: CYANOCOBALAMIN 1,000 MCG TABLET PO SCH (08:44)
[2023-07-07] MEDS: LORATADINE 10 MG TABLET PO SCH (08:44)
[2023-07-07] MEDS: FOLIC ACID 1 MG TAB PO SCH (08:44)
[2023-07-07] MEDS: HYDROcodone/ACETAMINOPHEN 10/325 TABLET PO SCH ×3 (08:44→21:33)
[2023-07-07] MEDS: DOCUSATE SODIUM 100 MG CAPSULE PO SCH ×2 (08:44→21:33)
[2023-07-07] MEDS: ALPRAZolam 1 MG TABLET PO PRN ×2 (08:48→21:32)
[2023-07-07] MEDS: ENOXAPARIN 40 MG/0.4 ML SYRINGE SC SCH (10:59)
[2023-07-07 19:20] VITALS: BP 114/53
[2023-07-07] MEDS: traZODone 150 MG (DESYREL) TABLET PO SCH (21:31)
--- NOTE | 2023-07-08 07:15 | PM&R Progress Note ---
Subjective HPI/CC On Admission Date Seen by Provider: Jul 08, 2023 Time Seen by Provider: 12:00 Subjective/Events-last exam 07/08/2023: Patient doing pretty well Feels like he is improving Stronger No falls 07/07/2023: Patient much improved Moving around better Pain is always an issue Xanax and hydrocodone dependent for years before establishing his care with [facility] 07/06/2023: Patient doing a lot better Strengthening up No falls Pain is improved 07/05/2023: No major issues Nurse saw him take a pill that she did not administer and he was very lethargic afterwards No new pain Narcotic and Xanax dependence for years before transferred from PCP to [facility] BM loose but [place] helps Review of Systems General: Fatigue, Malaise Objective Exam Vital Signs Vital Signs Date Time Temp Pulse Resp B/P (MAP) Pulse Ox O2 Delivery O2 Flow Rate FiO2 07/08/23 09:09 97 Room Air 07/08/23 07:45 36.4 76 18 121/56 (77) Capillary Refill : General Appearance: No Apparent Distress, WD/WN, Anxious, Chronically ill, Thin, Other (debilitated) HEENT: PERRL/EOMI, Normal ENT Inspection, Pharynx Normal Neck: Full Range of Motion, Normal Inspection, Non Tender, Supple, Carotid Bruit Respiratory: Chest Non Tender, Lungs Clear, Normal Breath Sounds, No Accessory Muscle Use, No Respiratory Distress Cardiovascular: Regular Rate, Rhythm, No Edema, No Gallop, No JVD, No Murmur, Normal Peripheral Pulses Gastrointestinal: Normal Bowel Sounds, No Organomegaly, No Pulsatile Mass, Non Tender, Soft Back: Normal Inspection, No CVA Tenderness, No Vertebral Tenderness Extremity: Normal Capillary Refill, Normal Inspection, Normal Range of Motion, Non Tender, No Calf Tenderness, No Pedal Edema Neurologic/Psychiatric: Alert, Oriented x3, carpenter's assistant II-XII Norm as Tested, Abnormal Gait, Depressed Affect, Motor Weakness (generalized) Skin: Normal Color, Warm/Dry Lymphatic: No Adenopathy Results/Procedures Lab Patient resulted labs reviewed. FIM Transfers Therapy Code Descriptions/Definitions Functional [place] Measure: 0=Not Assessed/NA 4=Minimal Assistance 1=Total Assistance 5=Supervision or Setup 2=Maximal Assistance 6=Modified [place] 3=Moderate Assistance 7=Complete IndependenceSCALE: Activities may be completed with or without assistive devices. 1-Kuqpmayuio-lniwnal completes the activity by him/herself with no assistance from a helper. 5-Set-up or Clean-up Assistance-helper sets up or cleans up; patient completes activity. [place] assists only prior to or following the activity. 4-Supervision or Touching Assistance-helper provides verbal cues and/or touching/steadying and/or contact guard assistance as patient completes activity. Assistance may be provided throughout the activity or intermittently. 3-Partial/Moderate Assistance-helper does LESS THAN HALF the effort. [place] lifts, holds or supports trunk or limbs, but provides less than half the effort. 2-Substantial/Maximal Assistance-helper does MORE THAN HALF the effort. [place] lifts or holds trunk or limbs and provides more than half the effort. 8-Akyxtkvtu-jrdwqs does ALL the effort. Patient does none of the effort to complete the activity. Or, the assistance of 2 or more helpers is required for the patient to complete the activity. If activity was not attempted, code reason: 7-Patient Refused. 9-Not Applicable-not attempted and the patient did not perform the activity before the current illness, exacerbation or injury. 10-Not Attempted due to Environmental Limitations-(lack of equipment, weather restraints, etc.). 88-Not Attempted due to Medical Conditions or Safety Concerns. Roll Left to Right (QC): 6 (with bed rail) Sit to Lying (QC): 5 (Therapist removed blankets from legs, then he was able to roll (R) and sit up to EOB (I) using the bed rail, but increased time to complete today compared to 07/04.) Sit to Stand (QC): 4 (CGA from recliner x 2, from w/c x 2, from arm chair x 6 /c vc each time for hand placement. No carry-over.) Chair/Qur-ls-Hdmjw Xfer(QC): 3 (Min (A) for 6 attempts /c v.c. to completely turn and back up to seat surface & for hand placement chair>chair. each time would not place hands on chair stand>sit and would fall into chair. Sat on arm of chair x 1 due to not turning completely. ) Car Transfer (QC): 3 (Min (A) with 4WW) Gait Training Does the Patient Walk?: Yes Distance: 152', 50' Walk 10 feet (QC): 3 (Mod (A) of 1 with max cues for step length, posture, UE use on FWW. W/C f/u. Declined compared to 07/04.) Walk 50 ft with 2 Turns(QC): 3 (min (A)-CGA with mod cues to increase step length - patient able when cued.) Walk 150 ft (QC): 3 (CGA-Min (A) /c FWW for 152' /c mod cues for step length - able to when cued.) Walking 10ft/uneven surface-QC: 3 (min (A) with 4WW) Gait Assistive Device: FWW Wheelchair Training Does the Pt Use a Wheelchair?: Yes Distance: 150' Wheel 50 ft with 2 turns (QC): 6 Wheel 150 ft (QC): 5 (w/c legs applied for patient prior to propulsion) Type of Wheelchair: Manual Stair Training #of Steps: 3 (mod (A) to steady patient and to help navigate 4WW up 2" curb.) 1 Step (curb) (QC): 3 (min (A) with (B) rails with cues for sequence.) 4 Steps (QC): 3 (mod (A) with (B) rails, fatigued, tremulous) 12 Steps (QC): 9 Balance Picking up an Object (QC): 3 (Mod (A) ) ADL-Treatment Eating (QC): 5 (Set-up A to open packages. Pt able to feed self.) Oral Hygiene (QC): 4 (SBA for oral care seated in WC at sink; verbal cues needed at times.) Shower/Bathe Self (QC): 3 (Partial/mod A for bathing seated on built in shower bench in shower with pt performing sit<>stand with Min A x 1 to clean ricky area and buttocks.) Upper Body Dressing (QC): 4 (SBA for donning/soffing shirt seated in WC) Lower Body Dressing (QC): 3 (Partial/mod A for donning/doffing pants and underwear. Sit<>stand with CGA x 1 to pull pants over hips. ) On/Off Footwear (QC): 4 (SBA to don/doff socks and shoes seated in WC) Toileting Hygiene (QC): 3 (Partial/mod A for toileting as pt voided seated on toilet. Pt required (A) to manage clothing.) Toilet Transfer (QC): 3 (Partial/mod A for toilet t/f utilizing GB's for safety. 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
[2023-07-08 07:45] VITALS: BP 121/56
[2023-07-08] MEDS: LORATADINE 10 MG TABLET PO SCH (08:12)
[2023-07-08] MEDS: FOLIC ACID 1 MG TAB PO SCH (08:12)
[2023-07-08] MEDS: HYDROcodone/ACETAMINOPHEN 10/325 TABLET PO SCH ×3 (08:12→21:34)
[2023-07-08] MEDS: CYANOCOBALAMIN 1,000 MCG TABLET PO SCH (08:12)
[2023-07-08] MEDS: DOCUSATE SODIUM 100 MG CAPSULE PO SCH ×2 (08:13→21:48)
[2023-07-08] MEDS: SENNA W/DOCUSATE TABLET PO SCH ×2 (08:13→21:48)
[2023-07-08] MEDS: ENOXAPARIN 40 MG/0.4 ML SYRINGE SC SCH (10:25)
[2023-07-08] MEDS: ALPRAZolam 1 MG TABLET PO PRN ×2 (13:03→21:33)
[2023-07-08 19:51] VITALS: BP 114/60
[2023-07-08] MEDS: traZODone 150 MG (DESYREL) TABLET PO SCH (21:33)
[2023-07-09 06:15] LABS: BASOPHILS # (AUTO) 0.1 10^3/uL (0.0-0.1); BASOPHILS % (AUTO) 1 % (0-10); EOSINOPHILS # (AUTO) 0.2 10^3/uL (0.0-0.3); EOSINOPHILS % (AUTO) 3 % (0-10); HEMATOCRIT 41 % (40-54); HEMOGLOBIN 13.3 g/dL (13.3-17.7); LYMPHOCYTES # (AUTO) 1.6 10^3/uL (1.0-4.0); LYMPHOCYTES % (AUTO) 24 % (12-44); MEAN CORPUSCULAR HEMOGLOBIN 32 pg (25-34); MEAN CORPUSCULAR HGB CONC 33 g/dL (32-36); MEAN CORPUSCULAR VOLUME 99 fL (80-99); MEAN PLATELET VOLUME 10.7 fL (9.0-12.2); MONOCYTES # (AUTO) 0.9 10^3/uL (0.0-1.0); MONOCYTES % (AUTO) 13 % (0-12); NEUTROPHILS % (AUTO) 59 % (42-75); PLATELET COUNT 195 10^3/uL (130-400); WHITE BLOOD COUNT 6.8 10^3/uL (4.3-11.0)
[2023-07-09 06:37] LABS: ALBUMIN 3.5 GM/DL (3.2-4.5); BILIRUBIN,TOTAL 0.4 MG/DL (0.1-1.0); CALCIUM 8.7 MG/DL (8.5-10.1); CREATININE SERUM 0.72 MG/DL (0.60-1.30); TOTAL PROTEIN 5.9 GM/DL (6.4-8.2)
--- NOTE | 2023-07-09 07:12 | PM&R Progress Note ---
Subjective HPI/CC On Admission Date Seen by Provider: Jul 09, 2023 Time Seen by Provider: 10:00 Subjective/Events-last exam 07/09/2023: No issues Urinates in all sorts of bowls and cups Smells of urine at times Confusion noted 07/08/2023: Patient doing pretty well Feels like he is improving Stronger No falls 07/07/2023: Patient much improved Moving around better Pain is always an issue Xanax and hydrocodone dependent for years before establishing [facility] care with [facility] 07/06/2023: Patient doing a lot better Strengthening up No falls Pain is improved 07/05/2023: No major issues Nurse saw him take a pill that she did not administer and he was very lethargic afterwards No new pain Narcotic and Xanax dependence for years before [facility] to [facility] BM loose but [place] helps Review of Systems General: Fatigue, Malaise Objective Exam Vital Signs Vital Signs Date Time Temp Pulse Resp B/P (MAP) Pulse Ox O2 Delivery O2 Flow Rate FiO2 07/09/23 09:53 93 Room Air 07/09/23 07:30 36.1 70 18 109/71 (84) Capillary Refill : General Appearance: No Apparent Distress, WD/WN, Anxious, Chronically ill, Thin, Other (debilitated) HEENT: PERRL/EOMI, Normal ENT Inspection, Pharynx Normal Neck: Full Range of Motion, Normal Inspection, Non Tender, Supple, Carotid Bruit Respiratory: Chest Non Tender, Lungs Clear, Normal Breath Sounds, No Accessory Muscle Use, No Respiratory Distress Cardiovascular: Regular Rate, Rhythm, No Edema, No Gallop, No JVD, No Murmur, Normal Peripheral Pulses Gastrointestinal: Normal Bowel Sounds, No Organomegaly, No Pulsatile Mass, Non Tender, Soft Back: Normal Inspection, No CVA Tenderness, No Vertebral Tenderness Extremity: Normal Capillary Refill, Normal Inspection, Normal Range of Motion, Non Tender, No Calf Tenderness, No Pedal Edema Neurologic/Psychiatric: Alert, Oriented x3, chair car driver II-XII Norm as Tested, Abnormal Gait, Depressed Affect, Motor Weakness (generalized) Skin: Normal Color, Warm/Dry Lymphatic: No Adenopathy Results/Procedures Lab Laboratory Tests 07/09/23 05:50 Patient resulted labs reviewed. FIM Transfers Therapy Code Descriptions/Definitions Functional [place] Measure: 0=Not Assessed/NA 4=Minimal Assistance 1=Total Assistance 5=Supervision or Setup 2=Maximal Assistance 6=Modified [place] 3=Moderate Assistance 7=Complete IndependenceSCALE: Activities may be completed with or without assistive devices. 7-Kglmxcxxgy-xsxsfyi completes the activity by him/herself with no assistance from a helper. 5-Set-up or Clean-up Assistance-helper sets up or cleans up; patient completes activity. [place] assists only prior to or following the activity. 4-Supervision or Touching Assistance-helper provides verbal cues and/or touching/steadying and/or contact guard assistance as patient completes activity. Assistance may be provided throughout the activity or intermittently. 3-Partial/Moderate Assistance-helper does LESS THAN HALF the effort. [place] lifts, holds or supports trunk or limbs, but provides less than half the effort. 2-Substantial/Maximal Assistance-helper does MORE THAN HALF the effort. [place] lifts or holds trunk or limbs and provides more than half the effort. 2-Ozvttxyqd-qfoutj does ALL the effort. Patient does none of the effort to complete the activity. Or, the assistance of 2 or more helpers is required for the patient to complete the activity. If activity was not attempted, code reason: 7-Patient Refused. 9-Not Applicable-not attempted and the patient did not perform the activity before the current illness, exacerbation or injury. 10-Not Attempted due to Environmental Limitations-(lack of equipment, weather restraints, etc.). 88-Not Attempted due to Medical Conditions or Safety Concerns. Roll Left to Right (QC): 6 (with bed rail) Sit to Lying (QC): 5 (Therapist removed blankets from legs, then he was able to roll (R) and sit up to EOB (I) using the bed rail, but increased time to complete today compared to 07/04.) Sit to Stand (QC): 4 (CGA from recliner x 2, from w/c x 2, from arm chair x 6 /c vc each time for hand placement. No carry-over.) Chair/Qdc-ve-Ntzjf Xfer(QC): 3 (Min (A) for 6 attempts /c v.c. to completely turn and back up to seat surface & for hand placement chair>chair. each time would not place hands on chair stand>sit and would fall into chair. Sat on arm of chair x 1 due to not turning completely. ) Car Transfer (QC): 3 (Min (A) with 4WW) Gait Training Does the Patient Walk?: Yes Distance: 152', 50' Walk 10 feet (QC): 3 (Mod (A) of 1 with max cues for step length, posture, UE use on FWW. W/C f/u. Declined compared to 07/04.) Walk 50 ft with 2 Turns(QC): 3 (min (A)-CGA with mod cues to increase step length - patient able when cued.) Walk 150 ft (QC): 3 (CGA-Min (A) /c FWW for 152' /c mod cues for step length - able to when cued.) Walking 10ft/uneven surface-QC: 3 (min (A) with 4WW) Gait Assistive Device: FWW Wheelchair Training Does the Pt Use a Wheelchair?: Yes Distance: 150' Wheel 50 ft with 2 turns (QC): 6 Wheel 150 ft (QC): 5 (w/c legs applied for patient prior to propulsion) Type of Wheelchair: Manual Stair Training #of Steps: 3 (mod (A) to steady patient and to help navigate 4WW up 2" curb.) 1 Step (curb) (QC): 3 (min (A) with (B) rails with cues for sequence.) 4 Steps (QC): 3 (mod (A) with (B) rails, fatigued, tremulous) 12 Steps (QC): 9 Balance Picking up an Object (QC): 3 (Mod (A) ) ADL-Treatment Eating (QC): 5 (Set-up A to open packages. Pt able to feed self.) Oral Hygiene (QC): 4 (SBA for oral care seated in WC at sink; verbal cues needed at times.) Shower/Bathe Self (QC): 3 (Partial/mod A for bathing seated on built in shower bench in shower with pt performing sit<>stand with Min A x 1 to clean ricky area and buttocks.) Upper Body Dressing (QC): 4 (SBA for donning/soffing shirt seated in WC) Lower Body Dressing (QC): 3 (Partial/mod A for donning/doffing pants and underwear. Sit<>stand with CGA x 1 to pull pants over hips. ) On/Off Footwear (QC): 4 (SBA to don/doff socks and shoes seated in WC) Toileting Hygiene (QC): 3 (Partial/mod A for toileting as pt voided seated on toilet. Pt required (A) to manage clothing.) Toilet Transfer (QC): 3 (Partial/mod A for toilet t/f utilizing GB's for s afety. 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
[2023-07-09 07:30] VITALS: BP 109/71
--- NOTE | 2023-07-09 07:59 | Speech Therapy Daily Note ---
Speech Daily Progress Note Subjective Date Seen by Provider: Jul 09, 2023 Time Seen by Provider: 07:18 Pt laying in bed asleep when MOLD PULLER arrives. Pt's breakfast at bed side. Pt requires lots of motivation to participate in speech therapy this date. Pt kept saying "come back later" or "I'll do it later". MOLD PULLER told pt he has to participate now as other therapies will be coming in. MOLD PULLER also explains the importance of doing therapy in order to return home safely. Pt denies being hungry at beginning of session. About [facility] through session, pt is agreeable to trying some of his breakfast. Pt refuses to complete some activities throughout the session. Pain Numeric Pain Scale: 8 Location Body Site: Back Objective Pt completes the following therapy exercises: effortful swallow x10 lingual protrusion - pt refuses and laughs at MOLD PULLER every time she attempts to get him to do them lingual retraction - x10 lingual presses into cheeks - x5 Pt completes ensure shake with no overt s/sx of aspiration. Pt takes 5 drinks of ice water via straw with no overt s/sx of aspiration. Pt takes bites of breakfast (MM5) with no overt s/sx of aspiration. Nurse brings in pills during session. Pt takes pills whole with thin liquids with no overt s/sx of aspira tion. Assessment Assessment Current Status: Fair Progress Treatment Plan Continue Plan of Care Speech Short Term Goals Short Term Goals Short Term Goals 1. The patient will display safe swallowing strategies with 80% accuracy and mild verbal/visual cueing. Time Frame-STG: Five Days. Speech Career Manager Goals [facility] Goals 1. The patient will tolerate the least restrictive diet consistency without s/s of suspected aspiration. Time Frame: One Week. Speech-Plan Patient/Family Goals Patient/Family Goals: Pt states his goal is to return home. Treatment Plan Speech Therapy Treatment Plan: Continue Plan of Care Treatment Duration: Jul 13, 2023 Frequency: Modified Program (IRF) Estimated Hrs Per Day: .5 hour per day Rehab Potential: Fair Safety Risks/Education Teaching Recipient: Patient Teaching Methods: Discussion Response to Teaching: Reinforcement Needed Education Topics Provided: Pt educated on purpose of therapy exercises. Pt will require reinforcement and reminders of purpose of therapy and reminders of safe swallowing strategies. Time Speech Therapy Time In: 07:18 Speech Therapy Time Out: 08:18 DATE: Jul 09, 2023 Total Billed Time: 60 Billed Treatment Time Dys TX Willard Choudhary Speech Therapy Jul 09, 2023 07:59
[2023-07-09] MEDS: FOLIC ACID 1 MG TAB PO SCH (08:07)
[2023-07-09] MEDS: HYDROcodone/ACETAMINOPHEN 10/325 TABLET PO SCH ×3 (08:07→20:16)
[2023-07-09] MEDS: SENNA W/DOCUSATE TABLET PO SCH ×2 (08:07→20:15)
[2023-07-09] MEDS: CYANOCOBALAMIN 1,000 MCG TABLET PO SCH (08:07)
[2023-07-09] MEDS: ALPRAZolam 1 MG TABLET PO PRN ×3 (08:07→20:16)
[2023-07-09] MEDS: LORATADINE 10 MG TABLET PO SCH (08:08)
[2023-07-09] MEDS: DOCUSATE SODIUM 100 MG CAPSULE PO SCH ×2 (08:08→20:15)
[2023-07-09] MEDS: ENOXAPARIN 40 MG/0.4 ML SYRINGE SC SCH (10:17)
--- NOTE | 2023-07-09 14:36 | Occupational Ther Daily Note ---
OT Current Status-Daily Note Subjective Pt consented to OT session this AM. Co-treat with PT to decrease fall risk, improve standing tolerance and overall strength to complete functional tasks to decrease burden of care. PT focusing on standing and B LE strengthening while OT focusing on ADLs, assisting with standing and strengthening B UE's. Pain Numeric Pain Scale: 8 Location: Lower Location Body Site: Back Pain Description: Ache, Dull ADL-Treatment Therapy Code Descriptions/Definitions Functional [place] Measure: 0=Not Assessed/NA 4=Minimal Assistance 1=Total Assistance 5=Supervision or Setup 2=Maximal Assistance 6=Modified [place] 3=Moderate Assistance 7=Complete IndependenceSCALE: Activities may be completed with or without assistive devices. 1-Gzgvymkbrt-jhxzqpn completes the activity by him/herself with no assistance from a helper. 5-Set-up or Clean-up Assistance-helper sets up or cleans up; patient completes activity. [place] assists only prior to or following the activity. 4-Supervision or Touching Assistance-helper provides verbal cues and/or touching/steadying and/or contact guard assistance as patient completes activity. Assistance may be provided throughout the activity or intermittently. 3-Partial/Moderate Assistance-helper does LESS THAN HALF the effort. [place] lifts, holds or supports trunk or limbs, but provides less than half the effort. 2-Substantial/Maximal Assistance-helper does MORE THAN HALF the effort. [place] lifts or holds trunk or limbs and provides more than half the effort. 4-Pscrymmky-vbxadc does ALL the effort. Patient does none of the effort to complete the activity. Or, the assistance of 2 or more helpers is required for the patient to complete the activity. If activity was not attempted, code reason: 7-Patient Refused. 9-Not Applicable-not attempted and the patient did not perform the activity before the current illness, exacerbation or injury. 10-Not Attempted due to Environmental Limitations-(lack of equipment, weather restraints, etc.). 88-Not Attempted due to Medical Conditions or Safety Concerns. Eating (QC): 5 (Set-up (A) with feeding to open packages) Oral Hygiene (QC): 5 (set-up A for oral care) Bathing Location: L Arm, R Arm, L Upper Leg, R Upper Leg, L Lower Leg (including foot), R Lower Leg (including foot), Chest, Abdomen, Buttocks, Perineal Area Shower/Bathe Self (QC): 3 (Partial/mod A for bathing seated on built in shower bench. Pt utilized GB's for safety. ) Upper Body Dressing (QC): 5 (Set-up A for UBD seated in WC) Lower Body Dressing (QC): 4 (SBA for steadiness for donning/doffing pants and underwear with verbal cues for safety. ) On/Off Footwear: 5 (Set-up A for donning/doffing socks seated in WC) Toileting Hygiene (QC): 4 (SBA for toileting to manage clothing and clean ricky area) Toilet Transfer (QC): 4 (SBA/CGA x 1 for toilet t/f with pt utilizing GB's for safety.) Other Treatment See PT note's for functional mobility performed during session Education OT Patient Education: Energy conservation, Exercise program, Modified ADL techniques, Progress toward Goal/Update tx plan, Purpose of tx/functional activities, Rehab process, Safety issues, Transfer techniques, Use of adapted equipment Teaching Recipient: Patient Teaching Methods: Demonstration, Discussion Response to Teaching: Verbalize Understanding, Return Demonstration, Reinforcement Needed OT Prison Goals Prison Goals Acute change in mental status: 0 Inattention: 2 Disorganized thinkin Altered level of consciousness: 0 Eating (QC): 6 Oral Hygiene (QC): 6 Toileting Hygiene (QC): 5 Shower/Bathe Self (QC): 4 Upper Body Dressing (QC): 6 Lower Body Dressing (QC): 4 On/Off Footwear (QC): 6 1=Demonstrate adherence to instructed precautions during ADL tasks. 2=Patient will verbalize/demonstrate understanding of assistive devices/modifications for ADL. 3=Patient will improve strength/tolerance for activity to enable patient to perform ADL's. OT Education/Plan Problem List/Assessment Assessment: Decreased Activ Tolerance, Decreased Safety Aware, Decreased UE Strength, Impaired Bed Mobility, Impaired Cognition, Impaired Funct Balance, Impaired I ADL's, Impaired Self-Care Skills Discharge Recommendations Plan/Recommendations: Continue POC Treatment Plan/Plan of Care Treatment,Training & Education: Yes Patient would benefit from OT for education, treatment and training to promote independence in ADL's, mobility, safety and/or upper extremity function for ADL's. Plan of Care: ADL Retraining, Caregiver Training, Cognitive Retraining, Functional Mobility, Group Exercise/Act as Ind, UE Funct Exercise/Act, UE Neuromus Re-Ed/Coord, W/C Management Training Treatment Duration: Jul 18, 2023 Frequency: At least 5 of 7 days/Wk (IRF) Estimated Hrs Per Day: 1.5 hours per day Agreement: Yes Rehab Potential: Fair Time Start Time: 11:00 Stop Time: 12:00 DATE: Jul 09, 2023 Total Time Billed (hr/min): 60 Billed Treatment Time 60 minutes Co-treat with PT for 60 minutes ADL 4 (60 minutes) PAMELA DUKES Jul 09, 2023 14:36
--- NOTE | 2023-07-09 15:31 | Physical Therapy Daily Note ---
PT Daily Note-Current Subjective Pt laying Supine in bed upon arrival. Pt agrees to Co-treat with OT to decrease fall risk, improve standing tolerance and overall strength to complete functional tasks to decrease burden of care. PT focusing on standing and B LE strengthening while OT focusing on ADLs, assisting with standing and strengthening B UE's. Pain Location: No Pain Reported Section J - Health Conditions 1. Rarely or not at all 2. Occasionally 3. Frequently 4. Almost constantly 8. Unable to answer Pain Effect on Sleep: 1 Pain Interference with Therapy: 2 Pain Interference w/Day-to-Day: 2 Mental Status Patient Orientation: Person, Place, Time Transfers SCALE: Activities may be completed with or without assistive devices. 0-Ctceprotja-qxwddyz completes the activity by him/herself with no assistance from a helper. 5-Set-up or Clean-up Assistance-helper sets up or cleans up; patient completes activity. [place] assists only prior to or following the activity. 4-Supervision or Touching Assistance-helper provides verbal cues and/or touching/steadying and/or contact guard assistance as patient completes activity. Assistance may be provided throughout the activity or intermittently. 3-Partial/Moderate Assistance-helper does LESS THAN HALF the effort. [place] lifts, holds or supports trunk or limbs, but provides less than half the effort. 2-Substantial/Maximal Assistance-helper does MORE THAN HALF the effort. [place] lifts or holds trunk or limbs and provides more than half the effort. 7-Boaxoxkxq-gsredx does ALL the effort. Patient does none of the effort to complete the activity. Or, the assistance of 2 or more helpers is required for the patient to complete the activity. If activity was not attempted, code reason: 7-Patient Refused. 9-Not Applicable-not attempted and the patient did not perform the activity before the current illness, exacerbation or injury. 10-Not Attempted due to Environmental Limitations-(lack of equipment, weather restraints, etc.). 88-Not Attempted due to Medical Conditions or Safety Concerns. Roll Left & Right (QC): 6 Sit to Lying (QC): 6 Lying to Sitting/Side of Bed(Q: 6 Sit to Stand (QC): 5 Chair/Bpx-um-Gqxbi Xfer(QC): 5 Toilet Transfer (QC): 5 Car Transfer (QC): 5 Weight Bearing Weight Bearing/Tolerated Weight Bearing/Tolerated Gait Training Does the Patient Walk?: Yes Distance: 152' Walk 10 feet (QC): 5 Walk 50 ft with 2 Turns(QC): 5 Walk 150 ft (QC): 5 Walking 10ft/uneven surface-QC: 5 Gait Assistive Device: FWW Wheelchair Training Does the Pt Use a Wheelchair?: Yes Wheel 50 ft with 2 turns (QC): 6 Wheel 150 ft (QC): 6 Type of Wheelchair: Manual Stair Training Stair Training: Handrails/: 2 handrails #of Steps: 4 1 Step (curb) (QC): 5 4 Steps (QC): 5 12 Steps (QC): 9 Stairs: Pattern: Step to Balance Picking up an Object (QC): 5 Treatments Pt completes Bed Mobility then TF to Standing & SPT to w/c. Pt completes shower & ADLs (see OT note) then amb out of room to finish QC scoring items listed above. Pt returns to room to rest in recliner w/all needs met, call light in hand. Assessment Current Status: Fair Progress VC needed to stay on task. Pt continues to use inappropriate language w/staff and needs redirection. Pt demonstrates unmotivated at times as well. PT Penitentiary Goals Penitentiary Goals PT City Distribution Clerk Goals Time Frame: Jul 25, 2023 Roll Left & Right (QC): 6 Sit to Lying (QC): 6 Lying-Sitting on Side/Bed(QC): 6 Sit to Stand (QC): 5 Chair/Nmh-yq-Lhwxp Xfer(QC): 5 Toilet Transfer (QC): 5 Car Transfer (QC): 5 Does the Patient Walk: Yes Walk 10 feet (QC): 5 (/c FWW) Walk 50ft with 2 Turns (QC): 5 (/c FWW) Walk 150 ft (QC): 4 (/c FWW) Walking 10ft on Uneven Surface: 4 (/c FWW) 1 Step (curb) (QC): 4 (/c FWW or railing) 4 Steps (QC): 4 (with railings) 12 Steps (QC): 9 Picking up an Object (QC): 5 (with caterpillar mechanic) Does the Pt use WC or Scooter?: Yes Wheel 50 feet with 2 turns (QC: 6 Type: Manual Wheel 150 feet: 6 Type: Manual PT Plan Problem List Problem List: Activity Tolerance, Safety Treatment/Plan Treatment Plan: Continue Plan of Care Treatment Plan: Education, Functional Activity Fide, Functional Strength, Group Therapy, Gait, Safety, Therapeutic Exercise, Transfers, Other Treatment Duration: Jul 25, 2023 Frequency: At least 5 of 7 days/Wk (IRF) Estimated Hrs Per Day: 1.5 hours per day Patient and/or Family Agrees t: Yes Safety Risks/Education Patient Education: Safety Issues Teaching Recipient: Patient Teaching Methods: Discussion Response to Teaching: Reinforcement Needed Time Time In: 1100 Time Out: 1200 DATE: Jul 09, 2023 Total Billed Treatment Time: 60 Total Billed Treatment Co-treat w/OT for 60m ([id number]) 1, FA x4 (60m) MICHELLE SILVA CONDUIT BENDER Jul 09, 2023 15:31
[2023-07-09] MEDS ORDERED: THIAMINE 100 MG (VITAMIN B-1) TAB PO ONE (16:15)
[2023-07-09 19:30] VITALS: BP 132/63
[2023-07-09] MEDS: traZODone 150 MG (DESYREL) TABLET PO SCH (20:16)
--- NOTE | 2023-07-10 05:04 | PM&R Progress Note ---
Subjective HPI/CC On Admission Date Seen by Provider: Jul 10, 2023 Time Seen by Provider: 10:30 Subjective/Events-last exam 07/10/2023: Patient doing a lot better Discharge plan for Sunday No falls 07/09/2023: No issues Urinates in all sorts of bowls and cups Smells of urine at times Confusion noted 07/08/2023: Patient doing pretty well Feels like he is improving Stronger No falls 07/07/2023: Patient much improved Moving around better Pain is always an issue Xanax and hydrocodone dependent for years before establishing his care with ca 07/06/2023: Patient doing a lot better Strengthening up No falls Pain is improved 07/05/2023: No major issues Nurse saw him take a pill that she did not administer and he was very lethargic afterwards No new pain Narcotic and Xanax dependence for years before transferred from PCP to ca BM loose but [place] helps Review of Systems General: Fatigue, Malaise Objective Exam Vital Signs Vital Signs Date Time Temp Pulse Resp B/P (MAP) Pulse Ox O2 Delivery O2 Flow Rate FiO2 07/10/23 08:23 92 Room Air 07/10/23 07:54 37.4 88 18 114/64 (81) Capillary Refill : General Appearance: No Apparent Distress, WD/WN, Anxious, Chronically ill, Thin, Other (debilitated) HEENT: PERRL/EOMI, Normal ENT Inspection, Pharynx Normal Neck: Full Range of Motion, Normal Inspection, Non Tender, Supple, Carotid Bruit Respiratory: Chest Non Tender, Lungs Clear, Normal Breath Sounds, No Accessory Muscle Use, No Respiratory Distress Cardiovascular: Regular Rate, Rhythm, No Edema, No Gallop, No JVD, No Murmur, Normal Peripheral Pulses Gastrointestinal: Normal Bowel Sounds, No Organomegaly, No Pulsatile Mass, Non Tender, Soft Back: Normal Inspection, No CVA Tenderness, No Vertebral Tenderness Extremity: Normal Capillary Refill, Normal Inspection, Normal Range of Motion, Non Tender, No Calf Tenderness, No Pedal Edema Neurologic/Psychiatric: Alert, Oriented x3, 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 FIM Transfers Therapy Code Descriptions/Definitions Functional [place] Measure: 0=Not Assessed/NA 4=Minimal Assistance 1=Total Assistance 5=Supervision or Setup 2=Maximal Assistance 6=Modified [place] 3=Moderate Assistance 7=Complete IndependenceSCALE: Activities may be completed with or without assistive devices. 4-Snmcgvjivh-tmfcmjo completes the activity by him/herself with no assistance from a helper. 5-Set-up or Clean-up Assistance-helper sets up or cleans up; patient completes activity. [place] assists only prior to or following the activity. 4-Supervision or Touching Assistance-helper provides verbal cues and/or touc caro/steadying and/or contact guard assistance as patient completes activity. Assistance may be provided throughout the activity or intermittently. 3-Partial/Moderate Assistance-helper does LESS THAN HALF the effort. [place] lifts, holds or supports trunk or limbs, but provides less than half the effort. 2-Substantial/Maximal Assistance-helper does MORE THAN HALF the effort. [place] lifts or holds trunk or limbs and provides more than half the effort. 2-Lscgxzomx-hpeara does ALL the effort. Patient does none of the effort to complete the activity. Or, the assistance of 2 or more helpers is required for the patient to complete the activity. If activity was not attempted, code reason: 7-Patient Refused. 9-Not Applicable-not attempted and the patient did not perform the activity before the current illness, exacerbation or injury. 10-Not Attempted due to Environmental Limitations-(lack of equipment, weather restraints, etc.). 88-Not Attempted due to Medical Conditions or Safety Concerns. Roll Left to Right (QC): 6 Sit to Lying (QC): 6 Sit to Stand (QC): 5 Chair/Yyx-pw-Tqeqj Xfer(QC): 5 Car Transfer (QC): 5 Gait Training Does the Patient Walk?: Yes Distance: 152' Walk 10 feet (QC): 5 Walk 50 ft with 2 Turns(QC): 5 Walk 150 ft (QC): 5 Walking 10ft/uneven surface-QC: 5 Gait Assistive Device: FWW Wheelchair Training Does the Pt Use a Wheelchair?: Yes Distance: 150' Wheel 50 ft with 2 turns (QC): 6 Wheel 150 ft (QC): 6 Type of Wheelchair: Manual Stair Training Stair Training: Handrails/: 2 handrails #of Steps: 4 1 Step (curb) (QC): 5 4 Steps (QC): 5 12 Steps (QC): 9 Stairs: Pattern: Step to Balance Picking up an Object (QC): 5 ADL-Treatment Eating (QC): 5 (Set-up (A) with feeding to open packages) Oral Hygiene (QC): 5 (set-up A for oral care) Bathing Location: L Arm, R Arm, L Upper Leg, R Upper Leg, L Lower Leg (including foot), R Lower Leg (including foot), Chest, Abdomen, Buttocks, Perineal Area Shower/Bathe Self (QC): 3 (Partial/mod A for bathing seated on built in shower bench. Pt utilized GB's for safety. ) Upper Body Dressing (QC): 5 (Set-up A for UBD seated in WC) Lower Body Dressing (QC): 4 (SBA for steadiness for donning/doffing pants and underwear with verbal cues for safety. 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
[2023-07-10] MEDS: THIAMINE 100 MG (VITAMIN B-1) TAB PO SCH (06:26)
[2023-07-10 07:54] VITALS: BP 114/64
[2023-07-10] MEDS: CYANOCOBALAMIN 1,000 MCG TABLET PO SCH (08:15)
[2023-07-10] MEDS: LORATADINE 10 MG TABLET PO SCH (08:16)
[2023-07-10] MEDS: HYDROcodone/ACETAMINOPHEN 10/325 TABLET PO SCH ×3 (08:16→21:16)
[2023-07-10] MEDS: FOLIC ACID 1 MG TAB PO SCH (08:16)
[2023-07-10] MEDS: DOCUSATE SODIUM 100 MG CAPSULE PO SCH ×2 (08:16→21:17)
[2023-07-10] MEDS: SENNA W/DOCUSATE TABLET PO SCH ×2 (08:16→21:16)
[2023-07-10] MEDS: ENOXAPARIN 40 MG/0.4 ML SYRINGE SC SCH (08:17)
[2023-07-10] MEDS: ACETAMINOPHEN 325 MG TABLET PO PRN (11:54)
--- NOTE | 2023-07-10 12:47 | Occupational Ther Daily Note ---
OT Current Status-Daily Note Subjective Pt alert, lying in bed. Pt required max encouragement to participate in skilled therapy. Pt c/o back/shldr pain rating 7/10, reported to nrsg. Co-treat with PT([id number]), skills of 2 clinicians required to decrease fall risk, increase activity tolerance, decrease pt self limiting and encourage participation. PT focusing on ambulate, w/c mobility and transfers while OT focusing on ADLs and functional mobility. Mental Status/Objective Patient Orientation: Person, Place, Time, Situation ADL-Treatment Set up for pt to use urinal to void. Pt self limits with all tasks. Therapy Code Descriptions/Definitions Functional [place] Measure: 0=Not Assessed/NA 4=Minimal Assistance 1=Total Assistance 5=Supervision or Setup 2=Maximal Assistance 6=Modified [place] 3=Moderate Assistance 7=Complete IndependenceSCALE: Activities may be completed with or without assistive devices. 8-Qaoryyptkf-pugypgz completes the activity by him/herself with no assistance from a helper. 5-Set-up or Clean-up Assistance-helper sets up or cleans up; patient completes activity. [place] assists only prior to or following the activity. 4-Supervision or Touching Assistance-helper provides verbal cues and/or touching/steadying and/or contact guard assistance as patient completes activity. Assistance may be provided throughout the activity or intermittently. 3-Partial/Moderate Assistance-helper does LESS THAN HALF the effort. [place] lifts, holds or supports trunk or limbs, but provides less than half the effort. 2-Substantial/Maximal Assistance-helper does MORE THAN HALF the effort. [place] lifts or holds trunk or limbs and provides more than half the effort. 7-Sakptoguc-zbopsl does ALL the effort. Patient does none of the effort to complete the activity. Or, the assistance of 2 or more helpers is required for the patient to complete the activity. If activity was not attempted, code reason: 7-Patient Refused. 9-Not Applicable-not attempted and the patient did not perform the activity before the current illness, exacerbation or injury. 10-Not Attempted due to Environmental Limitations-(lack of equipment, weather restraints, etc.). 88-Not Attempted due to Medical Conditions or Safety Concerns. Other Treatment CGA to SBA for bed mobility. SBA/CGA for safety when ambulating with FWW. Independent with w/c mobility. After session, pt sitting in recliner with call light/phone in reach. All needs met in room. OT Medical Lab Technician Goals Medical Lab Technician Goals Acute change in mental status: 0 Inattention: 2 Disorganized thinkin Altered level of consciousness: 0 Eating (QC): 6 Oral Hygiene (QC): 6 Toileting Hygiene (QC): 5 Shower/Bathe Self (QC): 4 Upper Body Dressing (QC): 6 Lower Body Dressing (QC): 4 On/Off Footwear (QC): 6 1=Demonstrate adherence to instructed precautions during ADL tasks. 2=Patient will verbalize/demonstrate understanding of assistive devices/modifications for ADL. 3=Patient will improve strength/tolerance for activity to enable patient to perform ADL's. OT Education/Plan Problem List/Assessment Assessment: Decreased Activ Tolerance, Decreased Safety Aware, Impaired Cognition, Impaired Self-Care Skills Discharge Recommendations Plan/Recommendations: Continue POC Treatment Plan/Plan of Care Patient would benefit from OT for education, treatment and training to promote independence in ADL's, mobility, safety and/or upper extremity function for ADL's. Plan of Care: ADL Retraining, Caregiver Training, Cognitive Retraining, Functional Mobility, Group Exercise/Act as Ind, UE Funct Exercise/Act, UE Neuromus Re-Ed/Coord, W/C Management Training Treatment Duration: Jul 18, 2023 Frequency: At least 5 of 7 days/Wk (IRF) Estimated Hrs Per Day: 1.5 hours per day Agreement: Yes Rehab Potential: Fair Time Start Time: 11:00 Stop Time: 12:00 DATE: Jul 10, 2023 Total Time Billed (hr/min): 60 Billed Treatment Time 1 visit-FA 4 (60 min) co-treat with PT 60 min DIONE BARRON Jul 10, 2023 12:47
--- NOTE | 2023-07-10 14:50 | Occupational Ther Daily Note ---
OT Current Status-Daily Note Subjective Pt alert, sitting in recliner. Pt reluctantly agrees to therapy, max encouragement required. Co-treat with PT ([id number]), skills of 2 clinicians required for family training with spouse for education on pt's mobility, mobility needs and functional needs. PT focusing on transfers, ambulation and mobility while OT focusing on functional mobility and education on pt's needs during ADLs. Mental Status/Objective Patient Orientation: Person, Place, Time, Situation ADL-Treatment Therapy Code Descriptions/Definitions Functional [place] Measure: 0=Not Assessed/NA 4=Minimal Assistance 1=Total Assistance 5=Supervision or Setup 2=Maximal Assistance 6=Modified [place] 3=Moderate Assistance 7=Complete IndependenceSCALE: Activities may be completed with or without assistive devices. 7-Ggyiavbkye-gxcyfsn completes the activity by him/herself with no assistance from a helper. 5-Set-up or Clean-up Assistance-helper sets up or cleans up; patient completes activity. [place] assists only prior to or following the activity. 4-Supervision or Touching Assistance-helper provides verbal cues and/or touching/steadying and/or contact guard assistance as patient completes activity . Assistance may be provided throughout the activity or intermittently. 3-Partial/Moderate Assistance-helper does LESS THAN HALF the effort. [place] lifts, holds or supports trunk or limbs, but provides less than half the effort. 2-Substantial/Maximal Assistance-helper does MORE THAN HALF the effort. [place] lifts or holds trunk or limbs and provides more than half the effort. 4-Unyaougay-rutama does ALL the effort. Patient does none of the effort to complete the activity. Or, the assistance of 2 or more helpers is required for the patient to complete the activity. If activity was not attempted, code reason: 7-Patient Refused. 9-Not Applicable-not attempted and the patient did not perform the activity before the current illness, exacerbation or injury. 10-Not Attempted due to Environmental Limitations-(lack of equipment, weather restraints, etc.). 88-Not Attempted due to Medical Conditions or Safety Concerns. Other Treatment Pt's asking questions about how much the pt should be walking at home. PT recommended that pt get up and walk every hour, acknowledged and was happy that PT stated this. Pt took increased time to complete all tasks due to self limiting and procrastination. Pt talking down to and therapists throughout session. See PT notes for progress on ambulation and transfers. After session, pt lying in bed with call light/phone in reach. All needs met in room. OT [facility] Goals [facility] Goals Acute change in mental status: 0 Inattention: 2 Disorganized thinkin Altered level of consciousness: 0 Eating (QC): 6 Oral Hygiene (QC): 6 Toileting Hygiene (QC): 5 Shower/Bathe Self (QC): 4 Upper Body Dressing (QC): 6 Lower Body Dressing (QC): 4 On/Off Footwear (QC): 6 1=Demonstrate adherence to instructed precautions during ADL tasks. 2=Patient will verbalize/demonstrate understanding of assistive devices/modifications for ADL. 3=Patient will improve strength/tolerance for activity to enable patient to perform ADL's. OT Education/Plan Problem List/Assessment Assessment: Decreased Activ Tolerance, Decreased Safety Aware, Impaired Cognition Discharge Recommendations Plan/Recommendations: Continue POC Treatment Plan/Plan of Care Patient would benefit from OT for education, treatment and training to promote independence in ADL's, mobility, safety and/or upper extremity function for ADL's. Plan of Care: ADL Retraining, Caregiver Training, Cognitive Retraining, Functional Mobility, Group Exercise/Act as Ind, UE Funct Exercise/Act, UE Neuromus Re-Ed/Coord, W/C Management Training Treatment Duration: Jul 18, 2023 Frequency: At least 5 of 7 days/Wk (IRF) Estimated Hrs Per Day: 1.5 hours per day Agreement: Yes Rehab Potential: Fair Time Start Time: 13:00 Stop Time: 13:40 DATE: Jul 10, 2023 Total Time Billed (hr/min): 40 Billed Treatment Time 1 visit-FA 3 (40 min) co-treat with PT 40 min DIONE BARRON Jul 10, 2023 14:50
--- NOTE | 2023-07-10 15:45 | Physical Therapy Daily Note ---
PT Daily Note-Current Subjective Pt alert, lying in bed upon arrival. Pt required max encouragement to participate in skilled therapy. Pt reported mid-back pain at /10. Co-tx with OT ([id number]), skills of 2 clinicians required to decrease fall risk, increase activity tolerance, decrease pt self limiting and encourage participation. PT focusing on bed mobility, transfers, ambulation, and w/c mobility, while OT focusing on ADLs, safety, and functional mobility. Pain Numeric Pain Scale: 7 Location Body Site: Back Section J - Health Conditions 1. Rarely or not at all 2. Occasionally 3. Frequently 4. Almost constantly 8. Unable to answer Pain Effect on Sleep: 1 Pain Interference with Therapy: 2 Pain Interference w/Day-to-Day: 2 Transfers SCALE: Activities may be completed with or without assistive devices. 5-Hamhjqiapz-bwvqhqa completes the activity by him/herself with no assistance from a helper. 5-Set-up or Clean-up Assistance-helper sets up or cleans up; patient completes activity. [place] assists only prior to or following the activity. 4-Supervision or Touching Assistance-helper provides verbal cues and/or touching/steadying and/or contact guard assistance as patient completes activity. Assistance may be provided throughout the activity or intermittently. 3-Partial/Moderate Assistance-helper does LESS THAN HALF the effort. [place] lifts, holds or supports trunk or limbs, but provides less than half the effort. 2-Substantial/Maximal Assistance-helper does MORE THAN HALF the effort. [place] lifts or holds trunk or limbs and provides more than half the effort. 2-Eiwrpjchk-bmzmzl does ALL the effort. Patient does none of the effort to complete the activity. Or, the assistance of 2 or more helpers is required for the patient to complete the activity. If activity was not attempted, code reason: 7-Patient Refused. 9-Not Applicable-not attempted and the patient did not perform the activity before the current illness, exacerbation or injury. 10-Not Attempted due to Environmental Limitations-(lack of equipment, weather restraints, etc.). 88-Not Attempted due to Medical Conditions or Safety Concerns. Roll Left & Right (QC): 4 Sit to Lying (QC): 4 Lying to Sitting/Side of Bed(Q: 4 Sit to Stand (QC): 4 Chair/Ovt-dv-Tlxdk Xfer(QC): 4 Weight Bearing Weight Bearing/Tolerated Weight Bearing/Tolerated Gait Training Does the Patient Walk?: Yes Distance: 100ft Walk 10 feet (QC): 4 Walk 50 ft with 2 Turns(QC): 4 Walk 150 ft (QC): 4 Gait Assistive Device: FWW Wheelchair Training Does the Pt Use a Wheelchair?: Yes Wheel 50 ft with 2 turns (QC): 4 Wheel 150 ft (QC): 4 Type of Wheelchair: Manual Treatments Pt took 30-40 min to get out of bed with max encouragement and direction. Pt completed bed mobility tasks with SBA. Pt completed functional transfers with CGA. Pt ambulated 100ft with the FWW and CGA for improved safety, as well as w/c follow. Pt completed w/c mobility x 150ft with SBA/Mod I. Pt takes extended time and max encouragement to complete all tasks. After session, pt sitting in recliner with call light/phone in reach. All needs met in room. Assessment Current Status: Fair Progress Self-limiting with all tasks PT Care Home Goals Care Home Goals PT Care Home Goals Time Frame: Jul 25, 2023 Roll Left & Right (QC): 6 Sit to Lying (QC): 6 Lying-Sitting on Side/Bed(QC): 6 Sit to Stand (QC): 5 Chair/Pli-bw-Kwuut Xfer(QC): 5 Toilet Transfer (QC): 5 Car Transfer (QC): 5 Does the Patient Walk: Yes Walk 10 feet (QC): 5 (/c FWW) Walk 50ft with 2 Turns (QC): 5 (/c FWW) Walk 150 ft (QC): 4 (/c FWW) Walking 10ft on Uneven Surface: 4 (/c FWW) 1 Step (curb) (QC): 4 (/c FWW or railing) 4 Steps (QC): 4 (with railings) 12 Steps (QC): 9 Picking up an Object (QC): 5 (with sheet rocker) Does the Pt use WC or Scooter?: Yes Wheel 50 feet with 2 turns (QC: 6 Type: Manual Wheel 150 feet: 6 Type: Manual PT Plan Problem List Problem List: Activity Tolerance, Functional Strength, Safety, Balance, Gait, Transfer, Bed Mobility, ROM Treatment/Plan Treatment Plan: Continue Plan of Care Treatment Plan: Bed Mobility, Education, Functional Activity Fide, Functional Strength, Group Therapy, Gait, Safety, Therapeutic Exercise, Transfers, Other Treatment Duration: Jul 25, 2023 Frequency: At least 5 of 7 days/Wk (IRF) Estimated Hrs Per Day: 1.5 hours per day Patient and/or Family Agrees t: Yes Safety Risks/Education Patient Education: Gait Training, Transfer Techniques, Correct Positioning, W/C Management, Safety Issues Teaching Recipient: Patient Teaching Methods: Demonstration, Discussion Response to Teaching: Reinforcement Needed Discharge Recommendations Therapy Discharge Recommendati: Home & Family Equpiment Recommendations-D/C: Front Wheeled Walker (delivered today ) Discharge Status/Home Program Cont per POC Barriers to Progress Pain; Self-limiting Target Placement Home with spouse Time Time In: 1100 Time Out: 1200 DATE: Jul 10, 2023 Total Billed Treatment Time: 60 Total Billed Treatment 60 min total/co-tx from [id number] 1 visit FA x 2 GT x 2 KAREN PERRY PT Jul 10, 2023 15:45
--- NOTE | 2023-07-10 15:54 | Physical Therapy Daily Note ---
PT Daily Note-Current Subjective Pt alert, sitting in w/c. Pt reluctantly agrees to therapy, max encouragement required. Co-tx with OT ([id number]), skills of 2 clinicians required for family training with spouse for education on pt's mobility, mobility needs and functional needs. PT focusing on transfers, ambulation, and mobility, while OT focusing on functional mobility and education on pt's needs during ADLs. Pain Numeric Pain Scale: 8 Location Body Site: Back Section J - Health Conditions 1. Rarely or not at all 2. Occasionally 3. Frequently 4. Almost constantly 8. Unable to answer Pain Effect on Sleep: 1 Pain Interference with Therapy: 2 Pain Interference w/Day-to-Day: 2 Transfers SCALE: Activities may be completed with or without assistive devices. 0-Vdweslkmjq-tijlwsz completes the activity by him/herself with no assistance from a helper. 5-Set-up or Clean-up Assistance-helper sets up or cleans up; patient completes activity. [place] assists only prior to or following the activity. 4-Supervision or Touching Assistance-helper provides verbal cues and/or touching/steadying and/or contact guard assistance as patient completes activity. Assistance may be provided throughout the activity or intermittently. 3-Partial/Moderate Assistance-helper does LESS THAN HALF the effort. [place] lifts, holds or supports trunk or limbs, but provides less than half the effort. 2-Substantial/Maximal Assistance-helper does MORE THAN HALF the effort. [place] lifts or holds trunk or limbs and provides more than half the effort. 9-Xspjxmmrd-ftctdh does ALL the effort. Patient does none of the effort to complete the activity. Or, the assistance of 2 or more helpers is required for the patient to complete the activity. If activity was not attempted, code reason: 7-Patient Refused. 9-Not Applicable-not attempted and the patient did not perform the activity before the current illness, exacerbation or injury. 10-Not Attempted due to Environmental Limitations-(lack of equipment, weather restraints, etc.). 88-Not Attempted due to Medical Conditions or Safety Concerns. Sit to Lying (QC): 4 Sit to Stand (QC): 4 Chair/Bja-ja-Dzuwf Xfer(QC): 4 Car Transfer (QC): 4 Weight Bearing Weight Bearing/Tolerated Weight Bearing/Tolerated Gait Training Does the Patient Walk?: Yes Distance: 75ft Walk 10 feet (QC): 4 Walk 50 ft with 2 Turns(QC): 4 Walk 150 ft (QC): 7 Gait Assistive Device: FWW Wheelchair Training Does the Pt Use a Wheelchair?: Yes Wheel 50 ft with 2 turns (QC): 6 Wheel 150 ft (QC): 6 Type of Wheelchair: Manual Stair Training 1 Step (curb) (QC): 7 4 Steps (QC): 7 Treatments Pt completed sit to stand and car transfer with CGA for safety. Pt's asked about how much the pt should be walking at home. Recommended that pt get up and walk every hour, acknowledged and was happy about this. Pt ambulated 75ft with the FWW and CGA. Pt completed w/c mobility with Mod I x 75ft. Pt took increased time to complete all tasks due to self limiting and procrastination. Pt sat in simulation car for 10-15 min refusing to stand up and walk back. Pt talking down to and PT/OT throughout session. Pt completed sit to supine and scooting up in bed with SBA. After session, pt lying in bed with call light/phone in reach. All needs met in room with present. Pt and spouse deny any questions or concerns. Assessment Current Status: Fair Progress Self-limiting PT Prison Goals Prison Goals PT Russian Teacher Goals Time Frame: Jul 25, 2023 Roll Left & Right (QC): 6 Sit to Lying (QC): 6 Lying-Sitting on Side/Bed(QC): 6 Sit to Stand (QC): 5 Chair/Pkg-mw-Krxwi Xfer(QC): 5 Toilet Transfer (QC): 5 Car Transfer (QC): 5 Does the Patient Walk: Yes Walk 10 feet (QC): 5 (/c FWW) Walk 50ft with 2 Turns (QC): 5 (/c FWW) Walk 150 ft (QC): 4 (/c FWW) Walking 10ft on Uneven Surface: 4 (/c FWW) 1 Step (curb) (QC): 4 (/c FWW or railing) 4 Steps (QC): 4 (with railings) 12 Steps (QC): 9 Picking up an Object (QC): 5 (with heavy equipment technician) Does the Pt use WC or Scooter?: Yes Wheel 50 feet with 2 turns (QC: 6 Type: Manual Wheel 150 feet: 6 Type: Manual PT Plan Problem List Problem List: Activity Tolerance, Functional Strength, Safety, Balance, Gait, Transfer, Bed Mobility, ROM Treatment/Plan Treatment Plan: Continue Plan of Care Treatment Plan: Bed Mobility, Education, Functional Activity Fide, Functional Strength, Group Therapy, Gait, Safety, Therapeutic Exercise, Transfers, Other Treatment Duration: Jul 25, 2023 Frequency: At least 5 of 7 days/Wk (IRF) Estimated Hrs Per Day: 1.5 hours per day Patient and/or Family Agrees t: Yes Safety Risks/Education Patient Education: Gait Training, Transfer Techniques, Correct Positioning, W/C Management, Safety Issues Teaching Recipient: Patient, Significant Other Teaching Methods: Demonstration, Discussion Response to Teaching: Verbalize Understanding, Return Demonstration, Reinforcement Needed Discharge Recommendations Therapy Discharge Recommendati: Home & Family Discharge Status/Home Program Cont per POC; Plan to d/c home tomorrow (07/11/23) Barriers to Progress self-limiting Target Placement Home with spouse Time Time In: 1300 Time Out: 1340 DATE: Jul 10, 2023 Total Billed Treatment Time: 40 Total Billed Treatment 40 min total/co-tx from [id number] 1 visit FA x 3 KAREN PERRY PT Jul 10, 2023 15:54
--- NOTE | 2023-07-10 16:20 | Speech Therapy Daily Note ---
Speech Daily Progress Note Subjective Date Seen by Provider: Jul 10, 2023 Time Seen by Provider: 15:00 The pt was awake and alert, responded appropriately to greeting and had good participation in treatment session. Objective Thin water by straw was provided by single sip, continuous boluses x3, and with mixed consistency (liquid drink with food in mouth). He demonstrated timely swallow response for all trials, with clear voice and no observable s/s penetration or aspiration for any trial. Oral-peripheral assessment showed trace right labial asymmetry at rest, with symmetrical retraction and labial protrusion. Lingual ROM was full and symmetrical, mild tremor and small in voluntary movement noted at rest. Discussed swallow precautions for solids due to edentulous upper and poor dentition lower. The pt was able to identify foods to avoid (tough meats, nuts, etc). He reported that he will continue to eat soft solids at discharge, verbalized need to take small bites to compensate for dentition. Speech Short Term Goals Short Term Goals Short Term Goals 1. The patient will display safe swallowing strategies with 80% accuracy and mild verbal/visual cueing. Time Frame-STG: Five Days. Speech Senior Backup Administrator Goals Senior Backup Administrator Goals 1. The patient will tolerate the least restrictive diet consistency without s/s of suspected aspiration. Time Frame: One Week. Speech-Plan Treatment Plan Speech Therapy Treatment Plan: Discontinue ST Treatment Duration: Jul 13, 2023 Frequency: Modified Program (IRF) Estimated Hrs Per Day: .5 hour per day Rehab Potential: Fair Safety Risks/Education Teaching Methods: Demonstration, Discussion Response to Teaching: Verbalize Understanding Discharge Recommendations Intermittent Supervision Time Speech Therapy Time In: 15:00 Speech Therapy Time Out: 15:25 DATE: Jul 10, 2023 Total Billed Time: 25 Billed Treatment Time 1Dyst (25) AZAM LINDO Jul 10, 2023 16:20
[2023-07-10] MEDS: ALPRAZolam 1 MG TABLET PO PRN (17:08)
[2023-07-10 20:45] VITALS: BP 150/79
[2023-07-10] MEDS: traZODone 150 MG (DESYREL) TABLET PO SCH (21:17)
[2023-07-11] MEDS: ALPRAZolam 1 MG TABLET PO PRN ×2 (00:16→07:49)
[2023-07-11] MEDS ORDERED: PS30T PO (05:12)
[2023-07-11] MEDS ORDERED: LORA10TA7 PO (05:12)
--- NOTE | 2023-07-11 05:14 | Discharge Summary ---
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 BPH Chronic pain Hydrocodone dependent Severe anxiety Xanax dependent Chronic diarrhea maintained on Questran New Vit B12 def New Folic acid def Plan: Home meds PT OT AD Decrease loftsman burden 07/05/2023: Monitor closely Pain management 07/06/2023: Continue vitamin supplements Supportive care 07/07/2023: Supportive care 07/08/2023: Supportive care Pain control 07/09/2023: Monitor closely Start Thiamine 07/10/2023: Supportive care Discharge planned (1) Cerebellar ataxia Discharge Summary Discharge Physical Examination Allergies: Coded Allergies: No Known Drug Allergies (Unverified , 06/14/10) Vitals & I&Os Vital Signs Date Time Temp Pulse Resp B/P (MAP) Pulse Ox O2 Delivery O2 Flow Rate FiO2 07/11/23 12:05 36.4 88 18 126/67 96 Room Air General Appearance: Alert, Oriented X3, Cooperative Respiratory: Clear to Auscultation Cardiovascular: Regular Rate Psych/Mental Status: Mental Status NL Hospital Course Was the Problem List Reviewed?: Yes Hospital course: Patient had an uneventful hospital course after he was directly admitted from home following multiple falls and severe weakness with weight loss due to neurodegenerative cerebellar ataxia. Patient did regain strength family education was helpful to help decrease [place] burden. Home medications were maintained and he was deemed stable for discharge and accomplishing the task of decreasing loftsman burden at home. Labs (last 24 hrs) Laboratory Tests 07/05/23 05:00: Sodium Level 139, Potassium Level 4.9, Chloride Level 103, Carbon Dioxide Level 24, Anion Gap 12, Blood Urea Nitrogen 12, Creatinine 0.83, Estimat Glomerular Filtration Rate 91, BUN/Creatinine Ratio 14, Glucose Level 103, Calcium Level 8.5, Corrected Calcium 9.0, Total Bilirubin 0.3, Aspartate Amino Transf (AST/SGOT) 22, Alanine Aminotransferase (ALT/SGPT) 20, Alkaline Phosphatase 70, Total Protein 5.9L, Albumin 3.4 07/05/23 05:43: White Blood Count 6.2, Red Blood Count 3.94L, Hemoglobin 12.6L, Hematocrit 39L, Mean Corpuscular Volume 99, Mean Corpuscular Hemoglobin 32, Mean Corpuscular Hemoglobin Concent 32, Red Cell Distribution Width 13.2, Platelet Count 189, Mean Platelet Volume 10.5, Immature Granulocyte % (Auto) 1, Neutrophils (%) (Auto) 53, Lymphocytes (%) (Auto) 30, Monocytes (%) (Auto) 12, Eosinophils (%) (Auto) 3, Basophils (%) (Auto) 1, Neutrophils # (Auto) 3.3, Lymphocytes # (Auto) 1.9, Monocytes # (Auto) 0.7, Eosinophils # (Auto) 0.2, Basophils # (Auto) 0.1, Immature Granulocyte # (Auto) 0.0 07/09/23 05:50: Sodium Level 138, Potassium Level 4.0, Chloride Level 106, Carbon Dioxide Level 25, Anion Gap 7, Blood Urea Nitrogen 14, Creatinine 0.72, Estimat Glomerular Filtration Rate 95, BUN/Creatinine Ratio 19, Glucose Level 99, Calcium Level 8.7, Corrected Calcium 9.1, Total Bilirubin 0.4, Aspartate Amino Transf (AST/SGOT) 38H, Alanine Aminotransferase (ALT/SGPT) 47, Alkaline Phosphatase 80, Total Protein 5.9L, Albumin 3.5, White Blood Count 6.8, Red Blood Count 4.11L, Hemoglobin 13.3, Hematocrit 41, Mean Corpuscular Volume 99, Mean Corpuscular Hemoglobin 32, Mean Corpuscular Hemoglobin Concent 33, Red Cell Distribution Width 13.4, Platelet Count 195, Mean Platelet Volume 10.7, Immature Granulocyte % (Auto) 0, Neutrophils (%) (Auto) 59, Lymphocytes (%) (Auto) 24, Monocytes (%) (Auto) 13H, Eosinophils (%) (Auto) 3, Basophils (%) (Auto) 1, Neutrophils # (Auto) 4.0, Lymphocytes # (Auto) 1.6, Monocytes # (Auto) 0.9, Eosinophils # (Auto) 0.2, Basophils # (Auto) 0.1, Immature Granulocyte # (Auto) 0.0 Pending Labs Laboratory Tests 07/05/23 05:00: Sodium Level 139, Potassium Level 4.9, Chloride Level 103, Carbon Dioxide Level 24, Anion Gap 12, Blood Urea Nitrogen 12, Creatinine 0.83, Estimat Glomerular Filtration Rate 91, BUN/Creatinine Ratio 14, Glucose Level 103, Calcium Level 8.5, Corrected Calcium 9.0, Total Bilirubin 0.3, Aspartate Amino Transf (AST/SGOT) 22, Alanine Aminotransferase (ALT/SGPT) 20, Alkaline Phosphatase 70, Total Protein 5.9, Albumin 3.4 07/05/23 05:43: White Blood Count 6.2, Red Blood Count 3.94, Hemoglobin 12.6, Hematocrit 39, Mean Corpuscular Volume 99, Mean Corpuscular Hemoglobin 32, Mean Corpuscular Hemoglobin Concent 32, Red Cell Distribution Width 13.2, Platelet Count 189, Mean Platelet Volume 10.5, Immature Granulocyte % (Auto) 1, Neutrophils (%) (Auto) 53, Lymphocytes (%) (Auto) 30, Monocytes (%) (Auto) 12, Eosinophils (%) (Auto) 3, Basophils (%) (Auto) 1, Neutrophils # (Auto) 3.3, Lymphocytes # (Auto) 1.9, Monocytes # (Auto) 0.7, Eosinophils # (Auto) 0.2, Basophils # (Auto) 0.1, Immature Granulocyte # (Auto) 0.0 07/09/23 05:50: Sodium Level 138, Potassium Level 4.0, Chloride Level 106, Carbon Dioxide Level 25, Anion Gap 7, Blood Urea Nitrogen 14, Creatinine 0.72, Estimat Glomerular Filtration Rate 95, BUN/Creatinine Ratio 19, Glucose Level 99, Calcium Level 8.7, Corrected Calcium 9.1, Total Bilirubin 0.4, Aspartate Amino Transf (AST/SGOT) 38, Alanine Aminotransferase (ALT/SGPT) 47, Alkaline Phosphatase 80, Total Protein 5.9, Albumin 3.5, White Blood Count 6.8, Red Blood Count 4.11, Hemoglobin 13.3, Hematocrit 41, Mean Corpuscular Volume 99, Mean Corpuscular Hemoglobin 32, Mean Corpuscular Hemoglobin Concent 33, Red Cell Distribution Width 13.4, Platelet Count 195, Mean Platelet Volume 10.7, Immature Granulocyte % (Auto) 0, Neutrophils (%) (Auto) 59, Lymphocytes (%) (Auto) 24, Monocytes (%) (Auto) 13, Eosinophils (%) (Auto) 3, Basophils (%) (Auto) 1, Neutrophils # (Auto) 4.0, Lymphocytes # (Auto) 1.6, Monocytes # (Auto) 0.9, Eosinophils # (Auto) 0.2, Basophils # (Auto) 0.1, Immature Granulocyte # (Auto) 0.0 Discharge Home Medications: Active Scripts Active Sudogest (Pseudoephedrine HCl) 30 Mg Tablet 30 Mg PO Q6H PRN Loratadine 10 Mg Tablet 10 Mg PO DAILY Reported Trazodone HCl 150 Mg Tablet 150 Mg PO HS Cholestyramine Powder (Cholestyramine (with Sugar)) 4 Gram Powder 4 Gm PO TID PRN TAKE WITH PLENTY OF WATER Hydrocodone-Acetamin 10-325 mg (Hydrocodone/Acetaminophen) 10 Mg-325 Mg Tablet 1 Ea PO TID Alprazolam 1 Mg Tablet 1 Mg PO QID Folic Acid 1 Mg Tablet 1 Mg PO DAILY Vitamin B-12 (Cyanocobalamin (Vitamin B-12)) 1,000 Mcg Tablet 1,000 Mcg PO DAILY Instructions to patient/family Please see electronic discharge instructions given to patient. Diagnosis/Problems Diagnosis/Problems (1) Cerebellar ataxia MAIDA FRANCO DO Jul 11, 2023 05:14
--- NOTE | 2023-07-11 05:14 | D/C HH Face to Face Order ---
D/C Face to Face Orders Reconcile Patient Problems Problems Reviewed?: Yes Instructions for Patient Via [facility], Patient Instructions/FollowUp: PCP Dr Cochran [facility] scheduled Physician to follow Patient: Sammie Discharge Diet for Home: No Restrictions Patient Problems: Neurodegenerative cerebellar ataxia Patient Data-Allergies,Ht & Wt Patient Allergies: Coded Allergies: No Known Drug Allergies (Unverified , 06/14/10) Height (Feet): 5 Height (Inches): 5.00 Weight (Pounds): 130 Home Health Need/Face to Face Date of Face to Face: Jul 11, 2023 Clinical Findings: Generalized weakness and fatigue, Muscle weakness, Unsteady gait I have seen Pt bzyi-jt-wquy: Yes Discharged To: Home Diagnosis/Conditions: Debility Patient is Homebound due to: [place] fall risk due to instabilty, Muscle weakness Homebound Status Due to the above stated illness, injury or surgical procedure (medical condition or diagnosis) and associated clinical findings, the patient is homebound because of his/her inability to leave home except with aid of a supportive device and/or person AND leaving the home requires a considerable and taxing effort or is medically contraindicated. Pt req the following assistanc: Walker, Wheelchair Home Health Nursing Orders Home Health Services Order: Nursing Services, Locomotive Inspector-Evaluate & Treat, Physical Therapy-Evaluate & Treat [facility] that this patient is under my care and that I, a nurse practitioner or a physician; a program assistant working with me, had a face to face encounter that - meets the physician face to face encounter requirements with this patient as dated. MAIDA COCHRAN DO Jul 11, 2023 05:14
[2023-07-11] MEDS: THIAMINE 100 MG (VITAMIN B-1) TAB PO SCH (06:24)
--- NOTE | 2023-07-11 07:17 | IRF PAI BIMS ---
BIMS CAM BIMS Expression of Ideas and Wants: Without Difficulty Understanding Verbal Content: Sometimes Understands Brief Interview/Mental Status: Yes IRF JESS BIMS: IRF JESS BIMS Response (Comments) Value Repitition of Three Words Three 3 Recalls Socks Yes, No Cue Required 2 Recalls Blue Yes, After Cueing (Color) 1 Recalls Bed Yes, After Cueing 1 Year Correct 3 Month Accurate Within 5 Days 2 Day Correct 1 Total 13 Patient Normally Able to Recal: Current Session, That he/she in a hsp Should Staff Asses. Mental St.: No CAM Mental Status Change/Baseline: 0 Inattention: 1 Disorganized thinkin Altered level of consciousness: 0 DIONE BARRON Jul 11, 2023 07:17
[2023-07-11 07:19] VITALS: BP 126/67
[2023-07-11] MEDS: HYDROcodone/ACETAMINOPHEN 10/325 TABLET PO SCH (07:33)
[2023-07-11] MEDS: CYANOCOBALAMIN 1,000 MCG TABLET PO SCH (07:34)
[2023-07-11] MEDS: LORATADINE 10 MG TABLET PO SCH (07:34)
[2023-07-11] MEDS: FOLIC ACID 1 MG TAB PO SCH (07:34)
[2023-07-11] MEDS: DOCUSATE SODIUM 100 MG CAPSULE PO SCH (07:34)
[2023-07-11] MEDS: SENNA W/DOCUSATE TABLET PO SCH (07:34)
[2023-07-11] MEDS: ENOXAPARIN 40 MG/0.4 ML SYRINGE SC SCH (09:33)
[2023-07-11 12:05] VITALS: BP 126/67
--- NOTE | 2023-07-11 13:04 | Therapy Team Discharge Summary ---
Therapy Discharge Summary Discharge Recommendations Date of Discharge Jul 11, 2023 at 12:05 Physical Therapy Roll Left to Right (QC): 4 Sit to Lying (QC): 4 Lying to Sitting/Side of Bed(Q: 4 Sit to Stand (QC): 4 Chair/Wsa-ly-Cjcnm Xfer(QC): 4 Toilet Transfer (QC): 4 Car Transfer (QC): 4 Does the Patient Walk: Yes Mode of Locomotion: Both Anticipated Mode of Locomotion: Both Walk 10 feet (QC): 4 Walk 50 ft with 2 Turns(QC): 4 Walk 150 ft (QC): 7 Walking 10ft on uneven surface: 5 Distance: 50' Gait Assistive Device: FWW Does the Pt Use a Wheelchair: Yes Wheelchair Distance: 150' Wheel 50 ft with 2 turns (QC): 6 Wheel 150 ft (QC): 6 Type of Wheelchair: Manual #of Steps: 4 1 Step (curb) (QC): 7 4 Steps (QC): 7 12 Steps (QC): 9 Walking Assistive Device: Walker Balance Sitting Static: Good Balance Sitting Dynamic: Fair Balance-Standing Static: Fair Picking up an Object (QC): 5 Occupational Therapy Pt was admitted on 07/04/2023 with a diagnosis of neurodegenerative cerebellar dysfunction with ataxia. Pt and medical chart notes that pt has a had a progressive decline in the past 2 years. At initial evaluation, pt was set-up A with feeding and oral care, partial/mod A with bathing, SBA for UBD, partial/mod A for LBD, SBA for footwear, and SBA for toileting. At discharge, pt was set-up A for feeding, set-up A for oral care, partial/mod A for bathing, set-up A for UBD, SBA for LBD, set-up A for footwear, and SBA for toileting. Pt met 1/ LTG's secondary to pt demo self-limiting behaviors and his overall cognition being a barrier to be (I). Family education held with to go over CLOF. Pt appears to have all DME needs from an OT standpoint. Pt discharged home with on 07/11/23 with home health services. Decreased Activ Tolerance, Decreased Safety Aware, Impaired Cognition Eating (QC): 5 (NOT MET -- Set-up (A) with feeding to open packages) Oral Hygiene (QC): 5 (NOT MET -- set-up A for oral care) Shower/Bathe Self (QC): 3 (NOT MET -- Partial/mod A for bathing seated on built in shower bench. Pt utilized GB's for safety. ) Upper Body Dressing (QC): 5 (NOT MET -- Set-up A for UBD seated in WC) Lower Body Dressing (QC): 4 (MET -- SBA for steadiness for donning/doffing pants and underwear with verbal cues for safety. ) On/Off Footwear (QC): 5 (NOT MET -- Set-up A for donning/doffing socks seated in WC) Toileting Hygiene (QC): 4 (NOT MET -- SBA for toileting to manage clothing and clean ricky area) PT Software Sales Representative Goals Software Sales Representative Goals PT Software Sales Representative Goals Time Frame: Jul 25, 2023 Roll Left to Right (QC): 6 Sit to Lying (QC): 6 Lying-Sitting on Side/Bed(QC): 6 Sit to Stand (QC): 5 Chair/Mdp-eo-Wosxt Xfer(QC): 5 Toilet/Commode Transfer (QC): 5 Car Transfer (QC): 5 Does the Patient Walk: Yes Walk 10 feet (QC): 5 (/c FWW) Walk 10ft-Uneven Surface(QC): 4 (/c FWW) Walk 50ft with 2 Turns (QC): 5 (/c FWW) Walk 150 ft (QC): 4 (/c FWW) Does the Pt use WC or Scooter?: Yes Wheel 50 feet with 2 turns (QC: 6 Type: Manual Wheel 150 feet: 6 Type: Manual 1 Step (curb) (QC): 4 (/c FWW or railing) 4 Steps (QC): 4 (with railings) 12 Steps (QC): 9 Picking up an Object (QC): 5 (with outside installation machinist) OT Nursing Home Goals Nursing Home Goals Acute change in mental status: 0 Inattention: 1 Disorganized thinkin Altered level of consciousness: 0 Eating (QC): 6 Oral Hygiene (QC): 6 Toileting Hygiene (QC): 5 Shower/Bathe Self (QC): 4 Upper Body Dressing (QC): 6 Lower Body Dressing (QC): 4 On/Off Footwear (QC): 6 1=Demonstrate adherence to instructed precautions during ADL tasks. 2=Patient will verbalize/demonstrate understanding of assistive devices/modifications for ADL. 3=Patient will improve strength/tolerance for activity to enable patient to perform ADL's. Speech Software Sales Representative Goals Nursing Home Goals 1. The patient will tolerate the least restrictive diet consistency without s/s of suspected aspiration. Time Frame: One Week. PAMELA DUKES Jul 11, 2023 13:03
--- NOTE | 2023-07-11 15:09 | Therapy Team Discharge Summary ---
Therapy Discharge Summary Discharge Recommendations Date of Discharge Jul 11, 2023 at 12:05 Physical Therapy Roll Left to Right (QC): 4 Sit to Lying (QC): 4 Lying to Sitting/Side of Bed(Q: 4 Sit to Stand (QC): 4 Chair/Poh-lm-Zfxou Xfer(QC): 4 Toilet Transfer (QC): 4 Car Transfer (QC): 4 Does the Patient Walk: Yes Mode of Locomotion: Both Anticipated Mode of Locomotion: Both Walk 10 feet (QC): 4 Walk 50 ft with 2 Turns(QC): 4 Walk 150 ft (QC): 7 Walking 10ft on uneven surface: 5 Distance: 50' Gait Assistive Device: FWW Does the Pt Use a Wheelchair: Yes Wheelchair Distance: 150' Wheel 50 ft with 2 turns (QC): 6 Wheel 150 ft (QC): 6 Type of Wheelchair: Manual #of Steps: 4 1 Step (curb) (QC): 7 4 Steps (QC): 7 12 Steps (QC): 9 Walking Assistive Device: Walker Balance Sitting Static: Good Balance Sitting Dynamic: Fair Balance-Standing Static: Fair Picking up an Object (QC): 5 Occupational Therapy Decreased Activ Tolerance, Decreased Safety Aware, Impaired Cognition Eating (QC): 5 Oral Hygiene (QC): 5 Shower/Bathe Self (QC): 3 Upper Body Dressing (QC): 5 Lower Body Dressing (QC): 4 (MET -- SBA for steadiness for donning/doffing pants and underwear with verbal cues for safety. ) On/Off Footwear (QC): 5 Toileting Hygiene (QC): 4 (NOT MET -- SBA for toileting to manage clothing and clean ricky area) Speech-Language Pathology At time of admission, pt presented with s/s penetration/aspiration of thin liquids. He had variable compliance with treatment and recommendations during stay. At time of discharge the pt demonstrated safety with thin liquids by straw without restrictions. Diet recommendation for soft, easy to chew solids in small bites with thin liquids. PT Camp Recreation Specialist Goals Assisted Goals PT Assisted Goals Time Frame: Jul 25, 2023 Roll Left to Right (QC): 6 Sit to Lying (QC): 6 Lying-Sitting on Side/Bed(QC): 6 Sit to Stand (QC): 5 Chair/Gku-sx-Wynow Xfer(QC): 5 Toilet/Commode Transfer (QC): 5 Car Transfer (QC): 5 Does the Patient Walk: Yes Walk 10 feet (QC): 5 (/c FWW) Walk 10ft-Uneven Surface(QC): 4 (/c FWW) Walk 50ft with 2 Turns (QC): 5 (/c FWW) Walk 150 ft (QC): 4 (/c FWW) Does the Pt use WC or Scooter?: Yes Wheel 50 feet with 2 turns (QC: 6 Type: Manual Wheel 150 feet: 6 Type: Manual 1 Step (curb) (QC): 4 (/c FWW or railing) 4 Steps (QC): 4 (with railings) 12 Steps (QC): 9 Picking up an Object (QC): 5 (with element burner) OT Camp Recreation Specialist Goals Assisted Goals Acute change in mental status: 0 Inattention: 1 Disorganized thinkin Altered level of consciousness: 0 Eating (QC): 6 Oral Hygiene (QC): 6 Toileting Hygiene (QC): 5 Shower/Bathe Self (QC): 4 Upper Body Dressing (QC): 6 Lower Body Dressing (QC): 4 On/Off Footwear (QC): 6 1=Demonstrate adherence to instructed precautions during ADL tasks. 2=Patient will verbalize/demonstrate understanding of assistive devices/modifications for ADL. 3=Patient will improve strength/tolerance for activity to enable patient to perform ADL's. Speech Camp Recreation Specialist Goals Camp Recreation Specialist Goals 1. The patient will tolerate the least restrictive diet consistency without s/s of suspected aspiration. Time Frame: One Week. AZAM LINDO Jul 11, 2023 15:09
--- NOTE | 2023-07-13 08:19 | Therapy Team Discharge Summary ---
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 Patient initially participated well with therapy evaluation, but his lethargy following medication, in combination with subsequent self-limiting behaviour & refusal of some therapy tasks affected his progress towards goals. At the time of D/C patient was SBA with bed mobility, CGA with transfers and gait up to 100' with FWW and was able to propel his w/c 150' (I). Family training was completed with the . He was discharged to home /c home health services. Roll Left to Right (QC): 4 Sit to Lying (QC): 4 Lying to Sitting/Side of Bed(Q: 4 Sit to Stand (QC): 4 Chair/Ago-er-Ydttc Xfer(QC): 4 Toilet Transfer (QC): 4 Car Transfer (QC): 4 Does the Patient Walk: Yes Mode of Locomotion: Both Anticipated Mode of Locomotion: Both Walk 10 feet (QC): 4 Walk 50 ft with 2 Turns(QC): 4 Walk 150 ft (QC): 7 Walking 10ft on uneven surface: 4 Distance: 100' Gait Assistive Device: FWW Does the Pt Use a Wheelchair: Yes Wheelchair Distance: 150' Wheel 50 ft with 2 turns (QC): 6 Wheel 150 ft (QC): 6 Type of Wheelchair: Manual #of Steps: 4 1 Step (curb) (QC): 7 4 Steps (QC): 7 12 Steps (QC): 9 Walking Assistive Device: Walker Balance Sitting Static: Good Balance Sitting Dynamic: Fair Balance-Standing Static: Fair Picking up an Object (QC): 5 Occupational Therapy Decreased Activ Tolerance, Decreased Safety Aware, Impaired Cognition Eating (QC): 5 Oral Hygiene (QC): 5 Shower/Bathe Self (QC): 3 Upper Body Dressing (QC): 5 Lower Body Dressing (QC): 4 (MET -- SBA for steadiness for donning/doffing pants and underwear with verbal cues for safety. ) On/Off Footwear (QC): 5 Toileting Hygiene (QC): 4 (NOT MET -- SBA for toileting to manage clothing and clean ricky area) PT Alf Goals Guest Relations Receptionist Goals PT Alf Goals Time Frame: Jul 25, 2023 Roll Left to Right (QC): 6 Sit to Lying (QC): 6 Lying-Sitting on Side/Bed(QC): 6 Sit to Stand (QC): 5 Chair/Sqc-up-Lfbla Xfer(QC): 5 Toilet/Commode Transfer (QC): 5 Car Transfer (QC): 5 Does the Patient Walk: Yes Walk 10 feet (QC): 5 (/c FWW) Walk 10ft-Uneven Surface(QC): 4 (/c FWW) Walk 50ft with 2 Turns (QC): 5 (/c FWW) Walk 150 ft (QC): 4 (/c FWW) Does the Pt use WC or Scooter?: Yes Wheel 50 feet with 2 turns (QC: 6 Type: Manual Wheel 150 feet: 6 Type: Manual 1 Step (curb) (QC): 4 (/c FWW or railing) 4 Steps (QC): 4 (with railings) 12 Steps (QC): 9 Picking up an Object (QC): 5 (with music industry intern) OT Guest Relations Receptionist Goals Guest Relations Receptionist Goals Acute change in mental status: 0 Inattention: 1 Disorganized thinkin Altered level of consciousness: 0 Eating (QC): 6 Oral Hygiene (QC): 6 Toileting Hygiene (QC): 5 Shower/Bathe Self (QC): 4 Upper Body Dressing (QC): 6 Lower Body Dressing (QC): 4 On/Off Footwear (QC): 6 1=Demonstrate adherence to instructed precautions during ADL tasks. 2=Patient will verbalize/demonstrate understanding of assistive devices/modifications for ADL. 3=Patient will improve strength/tolerance for activity to enable patient to perform ADL's. Speech Guest Relations Receptionist Goals Guest Relations Receptionist Goals 1. The patient will tolerate the least restrictive diet consistency without s/s of suspected aspiration. Time Frame: One Week. Sabina Gresham PT Jul 13, 2023 08:19
== END 2023-07-11 12:05 | disposition home health service (06) | DRG 60 ==
PROVIDERS: ADMIT Internal Medicine; ATTEND Internal Medicine
DX: G11.8 Other hereditary ataxias (principal); Z91.81 History of falling; R19.7 Diarrhea, unspecified; G47.00 Insomnia, unspecified; M54.9 Dorsalgia, unspecified; G89.29 Other chronic pain; N40.0 Benign prostatic hyperplasia without lower urinary tract symptoms; N52.9 Male erectile dysfunction, unspecified; F41.9 Anxiety disorder, unspecified; F32.A Depression, unspecified; E53.8 Deficiency of other specified B group vitamins
CPT/HCPCS: 36415; 80053; 85025